=== PATIENT | male | born 1955 | race Caucasian/White ===

== ENCOUNTER → 2017-06-13 | Outpatient (CLI) | payer BC ==
[~2017-06-13] MED LIST: AMO500 PO; ASPI325T PO; ASPI81TA63; ATIV0.5T; AVAP150T PO; BACT800T OR; CARBAMAZEPINE PO; CARV3.12 OR; FLON0.05; KEFL500C OR; MULTIVIT PO; NEUR300C; NITR0.4S SL; NOVOLOG INSULIN; NOVOLOG100 MG/ML; PENICILLIN V PO; PLAV75TA2 PO; SIMV40TA2 PO; SLOWTAB OR; TORS20TA2 PO; ZEST20TA; ZEST20TA4; [UNRECOGNIZED DRUG - OTHER] TOP; cq10 PO
[2017-06-13 09:27] LABS: ALBUMIN 3.4 GM/DL (3.2-5.2); ALBUMIN/GLOBULIN RATIO 1.31 (1.00-1.93); BILIRUBIN,DIRECT 0.1 MG/DL (0.0-0.2); BILIRUBIN,TOTAL 0.4 MG/DL (0.2-1.0); CALCIUM LEVEL 7.8 MG/DL (8.8-10.2); CREATININE FOR GFR 1.39 MG/DL (0.70-1.30); GLOMERULAR FILTRATION RATE 55.5 (>49); POTASSIUM SERUM 4.3 MEQ/L (3.5-5.1)
== END ==
LOC: M WUC 08:23
PROVIDERS: ATTEND Internal Medicine Cardiovascular Disease
DX: E78.00 Pure hypercholesterolemia, unspecified (principal)

== ENCOUNTER 2018-03-22 09:31 | Emergency (ER) | payer BC | END 2018-03-22 10:41 | disposition home or self-care (01) | LOC: M ED 09:31 | DX: M79.671 Pain in right foot (principal); E11.40 Type 2 diabetes mellitus with diabetic neuropathy, unspecified; R56.9 Unspecified convulsions; I50.9 Heart failure, unspecified; I25.10 Atherosclerotic heart disease of native coronary artery without angina pectoris; I25.2 Old myocardial infarction; E78.00 Pure hypercholesterolemia, unspecified; R03.0 Elevated blood-pressure reading, without diagnosis of hypertension; R07.9 Chest pain, unspecified; G47.30 Sleep apnea, unspecified; Z87.01 Personal history of pneumonia (recurrent); H40.9 Unspecified glaucoma; Z87.19 Personal history of other diseases of the digestive system; Z87.442 Personal history of urinary calculi; F41.9 Anxiety disorder, unspecified; Z95.5 Presence of coronary angioplasty implant and graft; Z79.82 Long term (current) use of aspirin; Z79.4 Long term (current) use of insulin; Z79.899 Other long term (current) drug therapy; Z88.5 Allergy status to narcotic agent | CPT/HCPCS: 73630 ==

== ENCOUNTER → 2018-04-18 | Day surgery (SDC) | payer BC ==
[~2018-04-18] MED LIST changes: -AMO500 PO; -ASPI325T PO; -ASPI81TA63; -ATIV0.5T; -AVAP150T PO; -BACT800T OR; -CARBAMAZEPINE PO; -CARV3.12 OR; -FLON0.05; -KEFL500C OR; +LIDOCAINE 2% INJ 100 MG/5 ML SDV (FOR ANES.) As Ordered; -MULTIVIT PO; -NEUR300C; -NITR0.4S SL; -NOVOLOG INSULIN; -NOVOLOG100 MG/ML; -PENICILLIN V PO; -PLAV75TA2 PO; +PROPOFOL 200 MG/20 ML VIAL As Ordered; -SIMV40TA2 PO; -SLOWTAB OR; -TORS20TA2 PO; -ZEST20TA; -ZEST20TA4; -[UNRECOGNIZED DRUG - OTHER] TOP; -cq10 PO
[2018-04-18] MEDS: NS 1,000 ML IV (08:30)
[2018-04-18 09:06] LABS: BEDSIDE GLUCOSE 185 MG/DL (80-115)
== END | disposition home or self-care (01) ==
LOC: M OPP 08:14
DX: Z12.11 Encounter for screening for malignant neoplasm of colon (principal); Z86.010 Personal history of colon polyps; K64.0 First degree hemorrhoids; D12.3 Benign neoplasm of transverse colon; I11.9 Hypertensive heart disease without heart failure; E78.00 Pure hypercholesterolemia, unspecified; E10.9 Type 1 diabetes mellitus without complications; G47.30 Sleep apnea, unspecified; R23.3 Spontaneous ecchymoses; M19.011 Primary osteoarthritis, right shoulder; M19.012 Primary osteoarthritis, left shoulder; I25.2 Old myocardial infarction; Z79.4 Long term (current) use of insulin; Z79.82 Long term (current) use of aspirin; Z79.899 Other long term (current) drug therapy; Z79.01 Long term (current) use of anticoagulants; Z87.898 Personal history of other specified conditions; Z95.5 Presence of coronary angioplasty implant and graft; Z83.3 Family history of diabetes mellitus
CPT/HCPCS: 45385

== ENCOUNTER → 2018-11-18 | Outpatient (CLI) | payer BC ==
[~2018-11-18] MED LIST changes: +AMO500 PO; +ASPI1TAB PO; +ASPI325T PO; +ASPI81TA63; +ATIV0.5T; +ATIV1TAB10 PO; +ATOR80TA59 PO; +AVAP150T PO; +BACT800T OR; +CARB200T98 PO; +CARBAMAZEPINE PO; +CARV12.5 PO; +CARV3.12 OR; +CLOP75TA2 PO; +FLON0.05; +INSUHUMDS; +ISOS30TA4 PO; +KEFL500C OR; -LIDOCAINE 2% INJ 100 MG/5 ML SDV (FOR ANES.) As Ordered; +MULTIVIT PO; +NEUR300C; +NITR0.4S SL; +NOVOLOG INSULIN; +NOVOLOG100 MG/ML; +PENICILLIN V PO; +PLAV75TA2 PO; -PROPOFOL 200 MG/20 ML VIAL As Ordered; +SIMV40TA2 PO; +SLOWTAB OR; +TORS10TA3 PO; +TORS20TA2 PO; +ZEST20TA; +ZEST20TA4; +[UNRECOGNIZED DRUG - OTHER] TOP; +cq10 PO; +humalog insulin pump
[2018-11-18 10:23] LABS: ALBUMIN 3.2 GM/DL (3.2-5.2); ALT/SGPT 41 U/L (12-78); BILIRUBIN,TOTAL 0.2 MG/DL (0.2-1.0); BLOOD UREA NITROGEN 35 MG/DL (7-18); CARBON DIOXIDE LEVEL 29 MEQ/L (21-32); CHLORIDE LEVEL 110 MEQ/L (98-107); CHOLESTEROL LEVEL 174 MG/DL (<200); CHOLESTEROL RISK RATIO 3.163 (<5); CREATININE FOR GFR 1.16 MG/DL (0.70-1.30); GLOMERULAR FILTRATION RATE > 60.0 (>49); GLUCOSE, FASTING 145 MG/DL (70-100); HDL CHOLESTEROL 55 MG/DL (>40); LDL CHOLESTEROL 100 MG/DL (<100); NON-HDL-C 119 MG/DL; POTASSIUM SERUM 4.8 MEQ/L (3.5-5.1); SODIUM LEVEL 145 MEQ/L (136-145); TOTAL PROTEIN 6.3 GM/DL (6.4-8.2); TRIGLYCERIDES LEVEL 96 MG/DL (<150)
== END ==
LOC: M LAB 09:12
PROVIDERS: ATTEND Physician Assistant
DX: E78.00 Pure hypercholesterolemia, unspecified (principal)

== ENCOUNTER → 2018-11-20 | Outpatient (CLI) | payer BC ==
--- NOTE | 2018-11-20 11:14 | REP ---
MR BRAIN WITHOUT CONTRAST: HISTORY: Left nerve palsy. Several punctate areas of increased signal intensity on T2-weighted images are present in the periventricular and subcortical white matte . This represents small vessel ischemic disease. There is no intraparenchymal hemorrhage, infarct or midline shift. A small lipoma is present along the anterior, superior and posteroinferior corpus callosum. The lipoma measures 6 mm in width. The ventricular system is normal in appearance. There is no extracerebral collection. There sinuses are clear. IMPRESSION: 1. Minimal small vessel ischemic disease. 2. Small corpus callosum lipoma. Electronically Signed by Jose Segovia MD 11/20/2018 11:30 A
--- NOTE | 2018-11-20 11:16 | REP ---
MR ORBITS WITHOUT CONTRAST: HISTORY: Left nerve palsy. The globes, optic nerves and rectus muscles are normal in appearance. There is no orbital lesion. The cavernous sinuses, optic chiasm and hypothalamus are normal in appearance. A lipoma is present along the anterior and superior surface of the corpus callosum. The visualized sinuses are clear. IMPRESSION: There is no orbital lesion. Electronically Signed by Jose Segovia MD 11/20/2018 11:31 A
== END ==
LOC: M RAD 08:53
PROVIDERS: ATTEND Ophthalmology
DX: G58.8 Other specified mononeuropathies (principal); R90.82 White matter disease, unspecified

== ENCOUNTER 2019-01-19 08:54 | Emergency (ER) | payer BC ==
[~2019-01-19] VITALS: Ht 167.6 cm; Wt 81.8 kg
[2019-01-19 09:28] LABS: BASO # 0.1 10^3/uL (0.0-0.2); BASO % 0.6 % (0.0-1.0); EOS # 0.1 10^3/uL (0.0-0.50); EOS % 1.6 % (0.0-3.0); HEMATOCRIT 40.6 % (42.0-52.0); HEMOGLOBIN 13.7 g/dl (13.5-17.5); LYMPH # 1.5 10^3/uL (1.5-4.5); LYMPH % 16.3 % (24.0-44.0); MEAN CORPUSCULAR HEMOGLOBIN 29.6 pg (27.0-33.0); MEAN CORPUSCULAR HGB CONC 33.7 g/dl (32.0-36.5); MEAN CORPUSCULAR VOLUME 87.7 fl (80.0-96.0); MONO # 0.5 10^3/uL (0.0-0.8); MONO % 5.9 % (0.0-5.0); NEUTROPHILS # 6.7 10^3/uL (1.8-7.7); NEUTROPHILS % 75.1 % (36.0-66.0); PLATELET COUNT, AUTOMATED 201 10^3/uL (150-450); RED BLOOD COUNT 4.63 10^6/uL (4.30-6.10); WHITE BLOOD COUNT 8.9 10^3/uL (4.0-10.0)
--- NOTE | 2019-01-19 09:50 | REP ---
CT Head without contrast HISTORY: Syncope COMPARISON: 09/07/2008 There is no intraparenchymal hemorrhage, acute infarct, or midline shift. A small partially calcified lipoma is present anterior and superior to the corpus callosum. The ventricular system is normal in appearance. There is no extra cerebral collection. There is no fracture. The visualized sinuses are clear. IMPRESSION: 1. There is no acute intracranial lesion. 2. Small corpus callosal lipoma. Electronically Signed by Jose Segovia MD 01/19/2019 09:41 A
--- NOTE | 2019-01-19 10:01 | REP ---
AP PORTABLE CHEST: 01/19/2019. Comparison: 05/07/2015. Clinical history: Chest pain. Findings: Lungs are adequately inflated. Heart size exaggerated by AP portable technique and lordotic projection. No gross cardiomegaly or edema. No effusion or infiltrate. Aorta and airway intact. No widening the mediastinum. There is no pulmonary edema. Impression: 1. Negative AP portable chest. Heart size exaggerated by AP portable lordotic technique without definite cardiomegaly, vascular redistribution, edema, effusion or infiltrate. Electronically Signed by Mono Terrell MD 01/19/2019 06:30 P
[2019-01-19 10:26] LABS: BLOOD UREA NITROGEN 23 MG/DL (7-18); CALCIUM LEVEL 8.9 MG/DL (8.8-10.2); CARBAMAZEPINE (TEGRETOL) LEVEL 3.7 UG/ML (4.0-10.0); CARBON DIOXIDE LEVEL 27 MEQ/L (21-32); CHLORIDE LEVEL 102 MEQ/L (98-107); CPK CREATINE PHOSPHOKINASE 117 U/L (39-308); CREATININE FOR GFR 1.45 MG/DL (0.70-1.30); GLOMERULAR FILTRATION RATE 52.5 (>49); GLUCOSE, FASTING 375 MG/DL (70-100); MB/CK RELATIVE INDEX 3.08 (< OR =4); POTASSIUM SERUM 5.7 MEQ/L (3.5-5.1); SODIUM LEVEL 135 MEQ/L (136-145); TROPONIN I < 0.02 NG/ML (< 0.10)
[2019-01-19 12:35] LABS: CPK CREATINE PHOSPHOKINASE 91 U/L (39-308); TROPONIN I < 0.02 NG/ML (< 0.10)
[2019-01-19 15:06] LABS: CPK CREATINE PHOSPHOKINASE 81 U/L (39-308); MB/CK RELATIVE INDEX 3.09 (< OR =4); TROPONIN I < 0.02 NG/ML (< 0.10)
[2019-01-19 15:15] VITALS: BP 166/76
--- NOTE | 2019-01-19 20:34 | ECGEPIP ---
Stationary ECG Study [facility] - ED Test Date: 2019-01-19 Pat Name: EVGENY BILLINGS Department: Room: - Gender: M Inpatient Pharmacist: sourav : 1955 Requested By: Sammy Padilla Order Number: [id number] Reading MD: Sammy Norman Measurements Intervals [place] Rate: 69 P: 42 [place]: 153 QRS: 15 QRSD: 109 T: 14 QT: 361 QTc: 387 Interpretive Statements SINUS RHYTHM INCOMPLETE RIGHT BUNDLE BRANCH BLOCK INFERIOR MYOCARDIAL INFARCTION, PROBABLY OLD SIMILAR TO 04/13/12 Electronically Signed On 01-19-2019 20:34:00 EDT by Sammy Norman
--- NOTE | 2019-01-19 20:42 | ECGEPIP ---
Stationary ECG Study [facility] - ED Test Date: 2019-01-19 Pat Name: EVGENY BILLINGS Department: Room: - Gender: M Uke Driver: sourav : 1955 Requested By: Sammy Padilla Order Number: [id number] Reading MD: Sammy Norman Measurements Intervals [place] Rate: 65 P: 57 [place]: 145 QRS: 8 QRSD: 114 T: 4 QT: 370 QTc: 386 Interpretive Statements SINUS RHYTHM INCOMPLETE RIGHT BUNDLE BRANCH BLOCK INFERIOR MYOCARDIAL INFARCTION, PROBABLY OLD SIMILAR TO PRIOR ON SAME DATE Electronically Signed On 01-19-2019 20:42:01 EDT by Sammy Norman
--- NOTE | 2019-01-19 20:51 | ECGEPIP ---
Stationary ECG Study [facility] - ED Test Date: 2019-01-19 Pat Name: EVGENY BILLINGS Department: Room: - Gender: M Tomographic Tech: sb : 1955 Requested By: Sammy Padilla Order Number: [id number] Reading MD: Sammy Norman Measurements Intervals [place] Rate: 69 P: 52 [place]: 139 QRS: 1 QRSD: 118 T: 0 QT: 360 QTc: 387 Interpretive Statements SINUS RHYTHM POSSIBLE LEFT ATRIAL ENLARGEMENT INCOMPLETE RIGHT BUNDLE BRANCH BLOCK INFERIOR MYOCARDIAL INFARCTION, PROBABLY OLD SIMILAR TO PRIOR ON SAME DATE Electronically Signed On 01-19-2019 20:51:39 EDT by Sammy Norman
== END 2019-01-19 16:04 | disposition home or self-care (01) ==
LOC: M ED 08:54
DX: R55 Syncope and collapse (principal); I12.9 Hypertensive chronic kidney disease with stage 1 through stage 4 chronic kidney disease, or unspecified chronic kidney disease; N18.3 Chronic kidney disease, stage 3 (moderate); E10.9 Type 1 diabetes mellitus without complications; I45.19 Other right bundle-branch block; I25.10 Atherosclerotic heart disease of native coronary artery without angina pectoris; E78.5 Hyperlipidemia, unspecified; F41.9 Anxiety disorder, unspecified; I25.2 Old myocardial infarction; Z95.5 Presence of coronary angioplasty implant and graft; Z79.899 Other long term (current) drug therapy; Z79.82 Long term (current) use of aspirin; Z88.5 Allergy status to narcotic agent

== ENCOUNTER → 2019-02-01 | Outpatient (CLI) | payer BC ==
[~2019-02-01] MED LIST changes: -ASPI1TAB PO; +ASPI81TA26 PO
[2019-02-01 09:55] LABS: ALBUMIN 3.2 GM/DL (3.2-5.2); BLOOD UREA NITROGEN 18 MG/DL (7-18); CALCIUM LEVEL 9.3 MG/DL (8.8-10.2); CARBON DIOXIDE LEVEL 28 MEQ/L (21-32); CHLORIDE LEVEL 108 MEQ/L (98-107); CREATININE FOR GFR 1.13 MG/DL (0.70-1.30); GLOMERULAR FILTRATION RATE > 60.0 (>49); GLUCOSE, FASTING 161 MG/DL (70-100); PHOSPHORUS LEVEL 3.6 MG/DL (2.5-4.9); POTASSIUM SERUM 5.1 MEQ/L (3.5-5.1); SODIUM LEVEL 141 MEQ/L (136-145)
== END ==
LOC: M LAB 08:16
PROVIDERS: ATTEND Internal Medicine Cardiovascular Disease
DX: I11.0 Hypertensive heart disease with heart failure (principal); I50.32 Chronic diastolic (congestive) heart failure

== ENCOUNTER → 2019-06-04 | Outpatient (CLI) | payer BC ==
[2019-06-04 13:43] LABS: HEMOGLOBIN A1c 9.5 %
[2019-06-04 13:56] LABS: CHOLESTEROL RISK RATIO 2.466 (<5)
== END ==
LOC: M WUC 10:41
PROVIDERS: ATTEND Internal Medicine Cardiovascular Disease
DX: E78.00 Pure hypercholesterolemia, unspecified (principal); I11.0 Hypertensive heart disease with heart failure; E10.22 Type 1 diabetes mellitus with diabetic chronic kidney disease

== ENCOUNTER → 2019-09-06 | Outpatient (CLI) | payer OTHER ==
[2019-09-06 11:24] LABS: HEMATOCRIT 42.5 % (42.0-52.0); HEMOGLOBIN 13.9 g/dl (13.5-17.5); MEAN CORPUSCULAR HEMOGLOBIN 29.8 pg (27.0-33.0); MEAN CORPUSCULAR HGB CONC 32.7 g/dl (32.0-36.5); MEAN CORPUSCULAR VOLUME 91.2 fl (80.0-96.0); PLATELET COUNT, AUTOMATED 221 10^3/uL (150-450); RED BLOOD COUNT 4.66 10^6/uL (4.30-6.10); WHITE BLOOD COUNT 7.4 10^3/uL (4.0-10.0)
[2019-09-06 12:01] LABS: CREATININE, URINE 19.1 MG/DL; MAU/CREAT RATIO 628.2 MCG/MG (0.0-30.0)
[2019-09-06 12:14] LABS: ALBUMIN 3.6 GM/DL (3.2-5.2); ALT/SGPT 40 U/L (12-78); BILIRUBIN,TOTAL 0.3 MG/DL (0.2-1.0); BLOOD UREA NITROGEN 41 MG/DL (7-18); CALCIUM LEVEL 9.6 MG/DL (8.8-10.2); CARBAMAZEPINE (TEGRETOL) LEVEL 3.5 UG/ML (4.0-10.0); CARBON DIOXIDE LEVEL 29 MEQ/L (21-32); CHLORIDE LEVEL 109 MEQ/L (98-107); CHOLESTEROL LEVEL 169 MG/DL (<200); GLOMERULAR FILTRATION RATE > 60.0 (>49); GLUCOSE, FASTING 167 MG/DL (70-100); HDL CHOLESTEROL 66 MG/DL (>40); LDL CHOLESTEROL 91 MG/DL (<100); NON-HDL-C 103 MG/DL; POTASSIUM SERUM 4.8 MEQ/L (3.5-5.1); SODIUM LEVEL 142 MEQ/L (136-145); TRIGLYCERIDES LEVEL 58 MG/DL (<150)
[2019-09-06 12:53] LABS: HEMOGLOBIN A1c 8.8 %
== END ==
LOC: M WUC 08:10
PROVIDERS: ATTEND Internal Medicine
DX: E10.8 Type 1 diabetes mellitus with unspecified complications (principal)

== ENCOUNTER 2020-08-07 02:22 | Inpatient (IN) | payer BC ==
[2020-08-07] VITALS (9 sets, daily range): BP systolic 133–188; BP diastolic 65–77
[~2020-08-07] VITALS: Ht 167.6 cm; Wt 84.0 kg
[2020-08-07] MEDS ORDERED: NS 500 ML IV ONE (02:30)
--- NOTE | 2020-08-07 02:48 | REPVR ---
PROCEDURE INFORMATION: Exam: CT Cervical Spine Without Contrast Exam date and time: 08/07/2020 2:33 AM Age: 65 years old Clinical indication: Neck pain; Additional info: Fall TECHNIQUE: Imaging protocol: Computed tomography images of the cervical spine without contrast. Radiation optimization: All CT scans at this facility use at least one of these dose optimization techniques: automated exposure control; mA and/or kV adjustment per patient size (includes targeted exams where dose is matched to clinical indication); or iterative reconstruction. COMPARISON: No relevant prior studies available. FINDINGS: Vertebrae: Nonspecific straightening. Vertebral body height and AP alignment is preserved. Uare-lu-npoqmyoi degenerative change about the dens. There are bilateral facet joint degenerative changes. No acute cervical spine fracture. Discs/Spinal canal/Neural foramina: Central canal stenosis greatest at C3-C4, likely mild to moderate.. Soft tissues: Unremarkable. Lungs: Lung apices are normal. Pleural space: No visible pneumothorax. Vasculature: Vascular calcification. IMPRESSION: No acute cervical spine fracture. Electronically signed by: Dewey Tristan On 08/07/2020 02:48:48 AM
--- NOTE | 2020-08-07 02:52 | REPVR ---
PROCEDURE INFORMATION: Exam: CT Head Without Contrast Exam date and time: 08/07/2020 2:27 AM Age: 65 years old Clinical indication: Injury or trauma; Fall; Concussion / head injury; Consciousness not specified; Additional info: Altered mental status TECHNIQUE: Imaging protocol: Computed tomography of the head without contrast. Radiation optimization: All CT scans at this facility use at least one of these dose optimization techniques: automated exposure control; mA and/or kV adjustment per patient size (includes targeted exams where dose is matched to clinical indication); or iterative reconstruction. COMPARISON: CT Head without contrast 01/19/2019 9:15 AM FINDINGS: Brain: No acute intracranial hemorrhage, midline shift or mass effect. Stable lipoma of the corpus callosum. Cerebral ventricles: No hydrocephalus. Bones/joints: Unremarkable. No acute fracture. Paranasal sinuses: Visualized sinuses are unremarkable. No fluid levels. Mastoid air cells: Mild partial opacification of the bilateral mastoid air cells. Soft tissues: Unremarkable. IMPRESSION: No acute intracranial abnormality. Electronically signed by: Dewey Tristan On 08/07/2020 02:52:14 AM
[2020-08-07 03:13] LABS: BASO # 0.1 10^3/uL (0.0-0.2); BASO % 0.5 % (0.0-1.0); EOS # 0.2 10^3/uL (0.0-0.5); EOS % 2.1 % (0.0-3.0); HEMATOCRIT 38.2 % (42.0-52.0); HEMOGLOBIN 12.5 g/dl (13.5-17.5); LYMPH # 2.3 10^3/uL (1.5-5.0); LYMPH % 22.9 % (24.0-44.0); MEAN CORPUSCULAR HEMOGLOBIN 29.3 pg (27.0-33.0); MEAN CORPUSCULAR HGB CONC 32.7 g/dl (32.0-36.5); MEAN CORPUSCULAR VOLUME 89.7 fl (80.0-96.0); MONO # 0.8 10^3/uL (0.0-0.8); MONO % 7.5 % (0.0-5.0); NEUTROPHILS # 6.8 10^3/uL (1.5-8.5); NEUTROPHILS % 66.2 % (36.0-66.0); PLATELET COUNT, AUTOMATED 211 10^3/uL (150-450); RED BLOOD COUNT 4.26 10^6/uL (4.30-6.10); WHITE BLOOD COUNT 10.2 10^3/uL (4.0-10.0)
[2020-08-07] MEDS ORDERED: DEXTROSE 50% 50 ML SYRINGE As Ordered ONE (03:33)
[2020-08-07] MEDS ORDERED: DEXTROSE 50% 50 ML SYRINGE IV STA (03:33)
--- NOTE | 2020-08-07 03:42 | REPVR ---
PROCEDURE INFORMATION: Exam: XR Chest, 1 View Exam date and time: 08/07/2020 2:50 AM Age: 65 years old Clinical indication: Chest pain; Additional info: Altered mental status TECHNIQUE: Imaging protocol: XR of the chest Views: 1 view. COMPARISON: No relevant prior studies available. FINDINGS: Lungs: There are low lung volumes. No consolidation. Pleural space: Unremarkable. No pleural effusion. No pneumothorax. Heart/Mediastinum: Cardiac silhouette is magnified by technique. Bones/joints: There are degenerative changes involving the spine. IMPRESSION: Low lung volumes without definite acute process. Electronically signed by: Dewey Tristan On 08/07/2020 03:41:37 AM
[2020-08-07] MEDS ORDERED: D5W 1,000 ML IV ONE (03:45)
[2020-08-07] MEDS ORDERED: D5W/0.45% SODIUM CHLORIDE 1,000 ML IV ONE (03:45)
[2020-08-07 03:48] LABS: ACETAMINOPHEN LEVEL < 2.0 UG/ML (10.0-30.0); ALBUMIN 3.6 GM/DL (3.2-5.2); ALT/SGPT 42 U/L (12-78); BILIRUBIN,DIRECT 0.1 MG/DL (0.0-0.2); BILIRUBIN,TOTAL 0.3 MG/DL (0.2-1.0); ETHYL ALCOHOL (ETHANOL) < 0.003 % (0.000-0.010); NT-PRO BNP 58 PG/ML (<125); SALICYLATE LEVEL < 1.7 MG/DL (5.0-30.0); TOTAL PROTEIN 7.1 GM/DL (6.4-8.2)
[2020-08-07] MEDS ORDERED: D5W/0.9% SODIUM CHLORIDE 1,000 ML IV SCH (04:00)
[2020-08-07 04:08] LABS: AMPHETAMINES LEVEL URINE NEGATIVE (NEGATIVE); BARBITURATES URINE NEGATIVE (NEGATIVE); BENZODIAZEPINES URINE NEGATIVE (NEGATIVE); CANNABINOIDS URINE NEGATIVE (NEGATIVE); COCAINE METABOLITE URINE NEGATIVE (NEGATIVE); METHADONE URINE NEGATIVE (NEGATIVE); OPIATES URINE NEGATIVE (NEGATIVE); PHENCYCLIDINE URINE NEGATIVE (NEGATIVE)
[2020-08-07] MEDS ORDERED: ACETAMINOPHEN TAB 650MG DOSE (2X325MG) PO PRN (04:45)
[2020-08-07] MEDS ORDERED: IRBE150T7 PO (04:52)
[2020-08-07] MEDS ORDERED: ASPI-525 PO (04:52)
[2020-08-07] MEDS ORDERED: TORS10TA3 PO (04:52)
[2020-08-07] MEDS ORDERED: ATOR40TA75 PO (04:52)
[2020-08-07] MEDS ORDERED: LORA1TAB4 PO (04:52)
[2020-08-07] MEDS ORDERED: TORS20TA2 PO (04:52)
[2020-08-07] MEDS ORDERED: CARV6.25 PO (04:52)
[2020-08-07] MEDS ORDERED: DORZ2SOL5 OU (04:52)
[2020-08-07] MEDS ORDERED: INSUHUMDS SC (04:52)
[2020-08-07] MEDS ORDERED: VITMTA PO (04:52)
[2020-08-07] MEDS ORDERED: NITR4TASL SL (04:52)
[2020-08-07] MEDS ORDERED: GLUCAGON INJ 1MG VIAL SC PRN (05:15)
[2020-08-07] MEDS ORDERED: DEXTROSE 50% 50 ML SYRINGE IV PRN (05:15)
[2020-08-07] MEDS ORDERED: LORazepam 1 MG TAB PO PRN (05:15)
[2020-08-07] MEDS ORDERED: GLUCOSE 4GM CHEW TABLET PO PRN (05:15)
--- NOTE | 2020-08-07 05:38 | HPEPDOC ---
[facility] Medical History & Physical Date of Admission Aug 07, 2020 Date of Service: Aug 07, 2020 Attending Physician: ACE BRAVO MD History and Physical CHIEF COMPLAINT: Found down HISTORY OF PRESENT ILLNESS: Aman Corrales is a 65 YO M with DM1, CAD s/p several stents and diastolic CHF who presented to the ED after being found down at home by his . EMS was activated and reports giving glucagon and D10 on arrival for hypoglycemia. According to ED staff, the patient was confused upon arrival to the ED but is fully oriented at the time of my interview. The patient reports that he remembers eating some candy corn around 9pm and then adjusting his basal dose of insulin. He states that he has recently been adjusting his insulin dosing with his PCP, Juancarlos Ford. He has been having elevated blood sugars over the past few days and states he has been self-adjusting his insulin pump and increasing his insulin sliding scale. Upon speaking to ED staff and corroborating story with the patient's , there is some concern about suicide attempt as the patient has recently had depressed moods. The patient denies any recent illness. No fevers, chills, n/v/d or shortness of breath. PAST MEDICAL HISTORY: 1. CAD s/p seven stents, most recent in 2011 (follows with Dr. Bryan) 2. Hx of inferior wall [place] 3. Chronic diastolic CHF, ischemic 4. T1DM, on insulin pump 5. HTN 6. Seasonal allergic rhinitis 7. HLD 8. ROCIO on CPAP 9. Depression/Anxiety PAST SURGICAL HISTORY: 1. Multiple PCI's and stent placement 2. Shoulder surgery 3. 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 Denies alcohol or illicit drugs FAMILY HISTORY: History of heart disease, HTN, obesity ALLERGIES: Please see below. REVIEW OF SYSTEMS: Constitutional: No Weight Change, No Fever, No Chills, No Night Sweats, No Fatigue, No Malaise ENT/Mouth: No Hearing Changes, No Ear Pain, No Nasal Congestion, No Sinus Pain, No Hoarseness, No sore throat, No Rhinorrhea, No Swallowing Difficulty Eyes: No Eye Pain, No Swelling, No Redness, No Foreign Body, No Discharge, No Vision Changes Cardiovascular: No Chest Pain, No SOB, No PND, No Dyspnea on Exertion, No Orthopnea, No Claudication, No Edema, No Palpitations Respiratory: No Cough, No Wheezing, No Smoke Exposure, No Dyspnea Gastrointestinal: No Nausea, No Vomiting, No Diarrhea, No Constipation, No Pain, No Heartburn, No Anorexia, No Dysphagia, No Hematochezia, No Melena Genitourinary: No Dysmenorrhea, No DUB, No Dyspareunia, No Dysuria Musculoskeletal: No Arthralgias, No Myalgias, No Joint Swelling, No Joint Stiffness, No Back Pain, No Neck Pain, No Injury History Skin: No Skin Lesions, No Pruritis, No Hair Changes, No Breast/Skin Changes, No Nipple Discharge Neuro: No Weakness, No Numbness, No Paresthesias, No Loss of Consciousness, No Syncope, No Dizziness, No Headache, No Coordination Changes, No Recent Falls Psych: No Anxiety/Panic, No Depression, No Insomnia, No Personality Changes, No Delusions Heme/Lymph: No Bruising, No Bleeding, No Transfusions History, No Lymphadenopathy Endocrine: No Polyuria, No Polydipsia, No Temperature Intolerance HOME MEDICATIONS: Please see below. VITAL SIGNS: see below GENERAL: alert and oriented, in no apparent distress, pleasant and conversant in full sentences. HEENT: PERRL, EOMI, Oral mucous membranes are moist without lesions. NECK: The patient has no noted JVD. No adenopathy is appreciated. No thyromegaly CHEST/LUNGS: Lungs are clear bilaterally without rhonchi, rales, or wheezes. There is no subcutaneous air appreciated. There is no tenderness to the chest wall. HEART: Regular rate and rhythm. 2/6 BRITTON heard best in RUSB. Distal pulses are 2+. No carotid bruits appreciated. ABDOMEN: Soft, nontender, and nondistended. Bowel sounds are positive. No organomegaly is appreciated. No masses are appreciated. There are no peritoneal signs. There is no [place] sign. EXTREMITIES: No peripheral edema. There is no focal long bone tenderness or deformity. SKIN: The patients skin is warm and dry, without rashes or lesions. PSYCHIATRIC: AAO x 3, normal mood/affect NEUROLOGIC: The patient has 5/5 strength to the upper and lower extremities bilaterally. Sensation is intact throughout. Deep tendon reflexes are 2+ in all four extremities. There are no deficits to the cranial nerves. LABORATORY DATA: See below. IMAGING: CT HEAD: FINDINGS: Brain: No acute intracranial hemorrhage, midline shift or mass effect. Stable lipoma of the corpus callosum. Cerebral ventricles: No hydrocephalus. Bones/joints: Unremarkable. No acute fracture. Paranasal sinuses: Visualized sinuses are unremarkable. No fluid levels. Mastoid air cells: Mild partial opacification of the bilateral mastoid air cells. Soft tissues: Unremarkable. IMPRESSION: No acute intracranial abnormality CXR: FINDINGS: Lungs: There are low lung volumes. No consolidation. Pleural space: Unremarkable. No pleural effusion. No pneumothorax. Heart/Mediastinum: Cardiac silhouette is magnified by technique. Bones/joints: There are degenerative changes involving the spine. IMPRESSION: Low lung volumes without definite acute process. CT Spine, Cervical: FINDINGS: Vertebrae: Nonspecific straightening. Vertebral body height and AP alignment is preserved. [id number]-vr-[id number] degenerative change about the dens. There are bilateral facet joint degenerative changes. No acute cervical spine fracture. Discs/Spinal canal/Neural foramina: Central canal stenosis greatest at C3-C4, likely mild to moderate.. Soft tissues: Unremarkable. Lungs: Lung apices are normal. Pleural space: No visible pneumothorax. Vasculature: Vascular calcification. IMPRESSION: No acute cervical spine fracture. MICROBIOLOGY: Please see below. ASSESSMENT: This is a 65 YO M with CAD s/p multiple MIs and stents, dCHF who presents after being found down at home found to have hypoglycemic encephalopathy likely 2/2 insulin overdose. PLAN: 1. Hypoglycemic encephalopathy: -Per the patient, he has recently been adjusting insulin dose with PCP. He thinks he took too much insulin earlier this evening. There is concern for suicide attempt. -Recommend psychiatric consult in AM -FSBS Q2H -SSI with hypoglycemic protocol -D5/NS IVF 40cc/hr -CT head negative for any abnormality -Patient will likely need higher level of T1DM care in outpatient setting 2. Severe hypothermia: Temperature found to be 91.0 on arrival -Warming blanket applied, warmed IV fluids -Continue urinary catheter temperature monitoring -Continuous telemetry 3. Leukocytosis: -Blood cultures pending -CXR negative for PNA 4. History of dCHF: patient sees Dr. Bryan and is scheduled for echo in office next week -Appears euvolemic on exam -Continue home Torsemide -Strict I/O, fluid restriction 2,000cc/day -Echo ordered. 5. History of CAD s/p multiple MIs and stents: -Troponins negative -EKG: sinus bradycardia rate of 53, unchanged from prior -Continue Coreg, Isosorbide, Plavix, ASA 6. HLD: -Continue home Atorvastatin DVT ppx: SQH Diet: consistent carbohydrate Vital Signs Vital Signs Date Time Temp Pulse Resp B/P (MAP) Pulse Ox O2 Delivery O2 Flow Rate FiO2 08/07/20 04:00 54 166/78 (107) 100 08/07/20 03:41 91.0 08/07/20 02:26 20 Nasal Cannula 2.0 Laboratory Data Labs 24H Laboratory Tests 2 08/07/20 02:28: Bedside Glucose (Misc Panel) 177H 08/07/20 02:58: Immature Granulocyte % (Auto) 0.8, Neutrophils (%) (Auto) 66.2H, Lymphocytes (%) (Auto) 22.9L, Monocytes (%) (Auto) 7.5H, Eosinophils (%) (Auto) 2.1, Basophils (%) (Auto) 0.5, Neutrophils # (Auto) 6.8, Lymphocytes # (Auto) 2.3, Monocytes # (Auto) 0.8, Eosinophils # (Auto) 0.2, Basophils # (Auto) 0.1, Nucleated Red Blood Cells % (auto) 0.0, Lactic Acid Level 1.1, Total Bilirubin 0.3, Direct Bilirubin 0.1, Aspartate Amino Transf (AST/SGOT) 25, Alanine Aminotransferase (ALT/SGPT) 42, Alkaline Phosphatase 135H, JH-Iam-P-Type Natriuretic Peptide 58, Total Protein 7.1, Albumin 3.6, Albumin/Globulin Ratio 1.0, Thyroid Stimulating Hormone (TSH) 2.260, Salicylates Level < 1.7L, Urine Opiates Screen NEGATIVE, Urine Methadone Screen NEGATIVE, Acetaminophen Level < 2.0L, Urine Barbiturates Screen NEGATIVE, Urine Phencyclidine Screen NEGATIVE, Urine Amphetamines Screen NEGATIVE, Urine Benzodiazepines Screen NEGATIVE, Urine Cocaine Metabolite Screen NEGATIVE, Urine Cannabinoids Screen NEGATIVE, Ethyl Alcohol Level < 0.003 08/07/20 03:01: POC Glucose (Misc Panel) 173H, POC Sodium (Misc Panel) 142, POC Potassium (Misc Panel) 3.9, POC Chloride (Misc Panel) 106, POC Total CO2 (Misc Panel) 22.0L, POC Blood Urea Nitrogen (Misc Panel 32H, POC Ionized Calcium (Misc Panel) 5.6H, POC Creatinine (Misc Panel) 1.1, POC Hematocrit (Misc Panel) 41.0 08/07/20 03:03: POC Troponin I (Misc) 0.01 08/07/20 03:32: Bedside Glucose (Misc Panel) 79L 08/07/20 03:59: Bedside Glucose (Misc Panel) 154H CBC/BMP Laboratory Tests 08/07/20 02:58 Home Medications Scheduled Aspirin (Aspirin EC) 325 Mg Tablet.dr, 325 MG PO DAILY Atorvastatin Calcium (Atorvastatin Calcium) 40 Mg Tablet, 60 MG PO QHS Carvedilol (Carvedilol) 6.25 Mg Tablet, 6.25 MG PO BID Clopidogrel Bisulfate (Clopidogrel) 75 Mg Tab, 75 MG PO DAILY Dorzolamide HCl/Timolol Maleat (Dorzolamide-Timolol Eye Drops) 10 Ml Drops, 1 DROP OU BID Insulin Human Lispro (Humalog) 100 Unit/1 Ml Vial, 1 DOSE SC ASDIRECTED VIA INSULIN PUMP Irbesartan (Irbesartan) 150 Mg Tablet, 150 MG PO BID Isosorbide Mononitrate (Isosorbide Mononitrate ER) 30 Mg Tab, 30 MG PO DAILY Multivitamins (Thera M Plus Tablet) 1 Each Tablet, 1 TAB PO DAILY Torsemide (Torsemide) 20 Mg Tablet, 20 MG PO DAILY Torsemide (Torsemide) 10 Mg Tablet, 10 MG PO QPM TAKES AT 1700 Scheduled PRN Lorazepam (Lorazepam) 1 Mg Tablet, 1 MG PO TID PRN for ANXIETY Nitroglycerin (Nitrostat) 0.4 Mg Tab.subl, 0.4 MG SL NITRO PRN for CHEST PAIN Allergies Coded Allergies: codeine (Verified Allergy, Mild, NAUSEA, 08/07/20) A-FIB/CHADSVASC A-FIB History Current/History of A-Fib/PAF?: No GME ATTESTATION GME ATTESTATION My faculty preceptor for this patient encounter was physically present during the encounter and was fully available. All aspects of the patient interview, examination, medical decision making process, and medical care plan development were reviewed and approved by the faculty preceptor. The faculty preceptor is aware and concurs with the plan as stated in the body of this note and will att est to such by his/her cosignature. ATTENDING NOTE I agree with the findings as documented above with the following additions. TIME OF SERVICE 420 AM is a 65 yr old w a hx of DM1, CAD/MIs and stents x7, HFpEF, and HTN who had a syncopal event and was found to have a low serum glucose by EMS and had resolution of his AMS w glucagon and D10. #Syncope due Hypoglycemia 2/2 accidental insulin OD Trop, CT head and cervical spine are unrevealing -admit to ICU for frequent neurochecks and FSBS Q1-2H / D5NS / hold antiglycemic agents for the next 24H to allow body to recalibrate and reduce his risk of developing hypoglycemic unawareness / will tolerate high sugars and ask RNs to contact MD if serum glucose is >300 /u A1C/ will ask the day time team to refer pt to [facility] so he can have a continuous insulin pump (per d/w w his [facility] in [place]) #Hypothermia 2/2 hypoglycemia Resolving Tmin 91.0 # Bradycardia 2/2 hypoglycemia Resolving - Renzo dodge #Uncontrolled HTN -c/w Coreg, torsemide, irbesartan, add amlodipine #HFpEF Risk factors HTN, DM and high BMI Plan: f/u Echo that was scheduled for today #CAD -ASA, clopidogrel, Imdur and Coreg, not sure why he is not on statin #Obesity w BMI if 31.6, co-existing DM and ROCIO complicates care rest per 's H&P PURA CASTLE MD Aug 07, 2020 05:38 ACE BRAVO MD Aug 07, 2020 06:25
[2020-08-07] MEDS ORDERED: FLUBLOK(EGG FREE)(QUAD)INFLUENZA VACC 0.5ML SYRINGE 18YRS & OLDER IM SCH (06:15)
--- NOTE | 2020-08-07 06:37 | ECGEPIP ---
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
[2020-08-07] MEDS: amLODIPine 5 MG TAB PO SCH (06:40)
[2020-08-07] MEDS ORDERED: HumaLOG INSULIN (NovoLOG) PER UNIT SC SCH ×3 (07:30→21:00)
--- NOTE | 2020-08-07 07:52 | IPNPDOC ---
Subjective Date Seen The patient was seen on 08/07/20. Subjective Chief Complaint/HPI HPI: Pt was seen at bedside this am. He's AAOx3 and states that he feels "great" now and that he doesn't think he needs to be in the ICU or at the hospital. when asked about what happened that brought him to the hospital, he states that all he remembers is eating candy corn and then became hypoglycemic. He said he could "feel himself getting hypoglyemic" so he ripped off his insulin pump that he had on. The next thing he knew was ending up in the ER. Denies CP, SOB, abdominal pain, fever, chills, n/v/d. Complaining about urinary cathether used for temperature montoring since patient was hypothermic on presentation to the ER. PHYSICAL EXAM VITAL SIGNS: see below GENERAL: alert and oriented, in no apparent distress, pleasant and conversant in full sentences. HEENT: PERRL, EOMI, Oral mucous membranes are moist without lesions. NECK: No JVD, Adenopathy, thyromegaly CHEST/LUNGS: Lungs are clear bilaterally without rhonchi, rales, or wheezes HEART: Regular rate and rhythm. 2/6 BRITTON heard best in RUSB. Distal pulses are 2+. No carotid bruits appreciated. ABDOMEN: Soft, nontender, and nondistended. Bowel sounds are positive. No organo megaly is appreciated. No masses are appreciated. There are no peritoneal signs. EXTREMITIES: Trace peripheral edema. There is no focal long bone tenderness or deformity. SKIN: The patients skin is warm and dry, without rashes or lesions. PSYCHIATRIC: AAO x 3, normal mood/affect NEUROLOGIC: The patient has 5/5 strength to the upper and lower extremities bilaterally. Sensation is intact throughout. Deep tendon reflexes are 2+ in all four extremities. There are no deficits to the cranial nerves. LABS: see below IMAGING: No new imaging. All imaging WNL Assessment /Plan Assessment This is a 65 YO M with CAD s/p multiple MIs and stents, HFpEF, Major depressive disorder, who presents after being found down at home found to have hypoglycemic encephalopathy likely 2/2 insulin overdose and on arrival to ER is found to be hypothermic and subsequently warmed by warming blanket and given boluses of D50. He was admitted to ICU for further mgmt. Per ER physician and patient's , this may have been a suicidal attempt. Plan/VTE VTE Prophylaxis Ordered?: Yes Plan # Hypoglycemic encephalopathy and fall - Imaging CT cervical brain- WNL; no intracranial hemorrhage - AAOX3 this am - Concern for suicide attempt based off of history given by patient's when patient was in the ER with altered mental status - Due to HIPPA regulations, pending auspicious psychiatrist for consultation - D/C'd insulin pump; continue sliding scale with SSI and hypoglycemic protocol - 2 boluses of D50 given - Continue FSBS Q2H - Patient's insulin pump will be restarted at same home dosage where he was intially on as per PCP #HyperK+ - 6.1 this am - 1 dose of ca gluconate given - repeat K level after - Will continue to monitor lytes closely and replete as needed # Severe hypothermia: Temperature found to be 91.0 on arrival - Warming blanket applied, warmed IV fluids - Continue to monitor vitals closely - Continuous telemetry # Leukocytosis: -Blood cultures pending -CXR negative for PNA # Hx of HFpEF - Follows Dr. Bryan and is scheduled for echo in office next week - No fluid overload state on exam ; trace peripheral edema; lungs clear -Continue home Torsemide -Strict I/O, fluid restriction 2,000cc/day -Echo ordered- pending results # Hx of CAD s/p multiple MIs and stents -Troponins negative -EKG: sinus bradycardia rate of 53, unchanged from prior- Carvedilol held this am (Hold parameter in place for HR <60) -Continue Coreg, Isosorbide, Plavix, ASA # HLD -Continue home Atorvastatin #Hx of MDD - Per patient's , she has a strong suspicion this may be a suicidal attempt. Pt's had significant hx of MDD - Psychiatry evaluation - appreciate recommendations DVT ppx: SQH Diet: consistent carbohydrate Fluids: None; fluid restriction 2L/day Consultations: Psychiatry (Dr. Zarco). Disposition: Remain in ICU and pending psychiatric evaluation per Dr. Zarco. currently medically cleared will see patient overnight and if stable, then dc tomorrow am with his insulin pump. VS, I&O, 24H, Fishbone Vital Signs/I&O Vital Signs Date Time Temp Pulse Resp B/P (MAP) Pulse Ox O2 Delivery O2 Flow Rate FiO2 08/07/20 07:00 96.1 68 18 146/67 (93) 99 Room Air 08/07/20 02:26 2.0 I&O- Last 24 Hours up to 6 AM 08/07/20 06:00 Intake Total 525 ml Output Total 800 ml Balance -275 ml Laboratory Data 24H LABS Laboratory Tests 2 08/07/20 02:28: Bedside Glucose (Misc Panel) 177H 08/07/20 02:58: Immature Granulocyte % (Auto) 0.8, Neutrophils (%) (Auto) 66.2H, Lymphocytes (%) (Auto) 22.9L, Monocytes (%) (Auto) 7.5H, Eosinophils (%) (Auto) 2.1, Basophils (%) (Auto) 0.5, Neutrophils # (Auto) 6.8, Lymphocytes # (Auto) 2.3, Monocytes # (Auto) 0.8, Eosinophils # (Auto) 0.2, Basophils # (Auto) 0.1, Nucleated Red Blood Cells % (auto) 0.0, Lactic Acid Level 1.1, Total Bilirubin 0.3, Direct Bilirubin 0.1, Aspartate Amino Transf (AST/SGOT) 25, Alanine Aminotransferase (ALT/SGPT) 42, Alkaline Phosphatase 135H, SU-Aro-D-Type Natriuretic Peptide 58, Total Protein 7.1, Albumin 3.6, Albumin/Globulin Ratio 1.0, Thyroid Stimulating Hormone (TSH) 2.260, Salicylates Level < 1.7L, Urine Opiates Screen NEGATIVE, Urine Methadone Screen NEGATIVE, Acetaminophen Level < 2.0L, Urine Barbiturates Screen NEGATIVE, Urine Phencyclidine Screen NEGATIVE, Urine Amphetamines Screen NEGATIVE, Urine Benzodiazepines Screen NEGATIVE, Urine Cocaine Metabolite Screen NEGATIVE, Urine Cannabinoids Screen NEGATIVE, Ethyl Alcohol Level < 0.003 08/07/20 03:01: POC Glucose (Misc Panel) 173H, POC Sodium (Misc Panel) 142, POC Potassium (Misc Panel) 3.9, POC Chloride (Misc Panel) 106, POC Total CO2 (Misc Panel) 22.0L, POC Blood Urea Nitrogen (Misc Panel 32H, POC Ionized Calcium (Misc Panel) 5.6H, POC Creatinine (Misc Panel) 1.1, POC Hematocrit (Misc Panel) 41.0 08/07/20 03:03: POC Troponin I (Misc) 0.01 08/07/20 03:32: Bedside Glucose (Misc Panel) 79L 08/07/20 03:59: Bedside Glucose (Misc Panel) 154H 08/07/20 04:40: Bedside Glucose (Misc Panel) 130H 08/07/20 05:52: Bedside Glucose (Misc Panel) 145H CBC/BMP Laboratory Tests 08/07/20 02:58 Microbiology Microbiology 08/07/20 Blood Culture, Received Pending 08/07/20 Blood Culture, Received Pending GME ATTESTATION GME ATTESTATION My faculty preceptor for this patient encounter was physically present during the encounter and was fully available. All aspects of the patient interview, examination, medical decision making process, and medical care plan development were reviewed and approved by the faculty preceptor. The faculty preceptor is aware and concurs with the plan as stated in the body of this note and will attest to such by his/her cosignature. ATTENDING NOTE Patient was seen and examined by me personally with the residents and students. Agree with the above assessment and plan Christiana Trejo DO Aug 07, 2020 07:52 EMIGDIO SNEED MD Aug 13, 2020 09:36
[2020-08-07] MEDS: HEPARIN SOD (PORCINE) 5000UNITS/ML 1ML VIAL/SYRINGE SC SCH ×2 (09:00→21:01)
[2020-08-07] MEDS ORDERED: TORSEMIDE 10 MG TABLET PO SCH ×2 (09:00→17:00)
[2020-08-07 09:48] LABS: ALBUMIN 3.5 GM/DL (3.2-5.2); ALT/SGPT 47 U/L (12-78); BILIRUBIN,TOTAL 0.7 MG/DL (0.2-1.0); BLOOD UREA NITROGEN 34 MG/DL (7-18); CALCIUM LEVEL 9.2 MG/DL (8.8-10.2); CARBON DIOXIDE LEVEL 16 MEQ/L (21-32); CHLORIDE LEVEL 110 MEQ/L (98-107); CPK CREATINE PHOSPHOKINASE 155 U/L (39-308); CREATININE FOR GFR 1.22 MG/DL (0.70-1.30); GLOMERULAR FILTRATION RATE > 60.0 (>49); GLUCOSE, FASTING 295 MG/DL (70-100); SODIUM LEVEL 137 MEQ/L (136-145); TOTAL PROTEIN 6.6 GM/DL (6.4-8.2)
[2020-08-07] MEDS: HumaLOG INSULIN (NovoLOG) PER UNIT SC SCH ×3 (09:49→16:42)
[2020-08-07] MEDS: MULTIVITAMINS/MINERALS THERAP 1 TAB PO SCH (09:51)
[2020-08-07] MEDS: CLOPIDOGREL 75 MG TAB PO SCH (09:51)
[2020-08-07] MEDS: ASPIRIN ENTERIC 325 MG TAB PO SCH (09:51)
[2020-08-07] MEDS: ISOSORBIDE MON. (IMDUR) 30 MG XR TAB PO SCH (09:53)
[2020-08-07] MEDS: CARVedilol 6.25 MG TAB PO SCH ×2 (09:53→21:01)
[2020-08-07] MEDS: COSOPT OCUMETER PLUS 10ML (DORZOLAMIDE/TIMOLOL) OU SCH ×2 (09:54→21:02)
[2020-08-07] MEDS: IRBESARTAN 150MG TAB PO SCH ×2 (11:14→21:01)
[2020-08-07] MEDS ORDERED: CALCIUM GLUCONATE 1,000 MG in D5W MINI-BAG PLUS 100 ML IV ONE (12:00)
[2020-08-07 12:28] LABS: CALCIUM LEVEL 8.9 MG/DL (8.8-10.2); CREATININE FOR GFR 1.37 MG/DL (0.70-1.30); GLOMERULAR FILTRATION RATE 55.9 (>49); POTASSIUM SERUM 4.8 MEQ/L (3.5-5.1)
[2020-08-07] MEDS ORDERED: TAMSULOSIN 0.4 MG CAP PO ONE (15:45)
--- NOTE | 2020-08-07 16:08 | MHHPEPDOC ---
General Date Of Admission: Aug 06, 2020 Legal Status: Psychiatric Consult ICU Chief Complaint Patient is a 65 year old , Semi-Retired, Domiciled, Male who is admitted to ICU for Hypoglycemic Complications. Patient reports that he woke up during the night when he was low, attempted to get to the kitchen but was unable to test himself before he fell. According to his , patient may have given himself an extra bolus of insulin, but cannot ascertain whether this was a suicide attempt or being careless. History of Present Illness HISTORY OF THE PRESENT ILLNESS: Patient is a 65 -year-old , Semi-Retired, Domiciled, , male, who was brought to [facility] for hypoglycemic complications. Patient reports readily that he has been stressed due to finances, his 's recent job loss, his grown children having marital and family difficulties but denies that this was a suicide attempt. He states, "I do not wish to kill myself." He states that yesterday was a full day for him. 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 He also report states that he and his are on a Vegetarian diet. He stated, "I gave myself 7 units, but I needed carbs." He also admitted to eating 1/2 cup of candy corn, and states "I should not have bolused but I gave myself 7 units" Patient reports that his recently loss her job which is making him worry about the cost of the health insurance - [employer] payment is $1300 per month. He states that he is relying on her to work another 2 years in order to bridge his ability to receive Medicare. He admits that he had texted to his daughter "I am tired of it all being left for me to fix, I cannot afford to get help, I might as well start drinking." He clarifies that his frustration is that he and his cannot afford for her to be without a job. He feels that she should have not taken any time off and started looking for a job immediately instead of taking time off to see family. She is currently working for their son, but this is temporary. He says he is worried about his finances but does not endorse being scared or fearful of financial ruin. Psychiatric Review of Systems Depression (2 or more weeks): depressed mood, insomnia/hypersomnia, feelings of excess/guilt, difficulty concentrating, other (agitation, sadness) Geetha (4 or more days of): denies Psychosis: denies PTSD: denies Anxiety: situational anxiety, stressor related anxiety Past Psychiatric History Previous Psychiatric Diagnosis: Anxiety Disorder. Previous Psychiatric Admissions: None Suicide Attempts: No history of suicidal ideation, gestures or attempts. Denies that this was a suicide gesture or attempt Psychiatric Follow-up: No current provider Psychiatric medications: Ativan 1mg three times daily, stated, "1 bottle has l asted me a year, I don't use this often" Past Medical History Medical Problems Medical: Juvenile Diabetes, Cardiac, CHF, Diabetic Neuropathy, Retinal Neuropathy, History of Syncope, History of Hypoglycemia, History of Hypokalemia Surgeries: Cataract Surgery Bilaterally, Right Shoulder Surgery Allergies: Environmental Head Injury: No Seizures: No Hospitalizations: Yes Surgeries: Yes Family Medical/Psychiatric HX Psychiatric Disorders: Yes Addiction: Yes Suicide Attemps/Completions: Yes Addiction History alcohol (History 35 years ago) Social History Childhood: Patient born to both parents, reports that his father was to his mother's sister prior to marrying his mother. He is 1 of 9 children. 2 of his older brother committed suicide. History of Drugs and Alcohol in the family. He reports that both of his brothers committing suicide was heartbreaking for him. He wished that his brothers would have sought help for their depression. He reports that he would not put his family through this kind of pain. 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 He bolused for insulin, hadn't eaten, worked all day and eat candy corn." She is concerned that because his side of the bed was dry, because when he is low, he often is diaphoretic and the bed was dry. In the past, that patient has woken her up when he is hypoglycemic. She found him on the floor in the kitchen. And it concerns her that he had made depressive statements, none suicidal in nature but feels that he does not need an admission to Inpatient Mental Health but is requesting an anti-depressant and referral for outpatient mental health services. Mental Status Examination General Appearance: appears stated age, hospital scubs/clothing Build: overweight Demeanor: average Eye Contact: average Activity: average Behavior: cooperative Speech: clear, normal volume, reg/rate,rhythm,volume Mood: euthymic Affect: congruent Thought Process: logical/linear Thought Content (Delusions): none reported Thought Content (Other): none reported Thought Content (Aggressive): none reported Perception (Hallucinations): none reported Perception (Other): none reported Cognition (Impairment of): none reported Cognition(Intelligence Est.): above average Oriented: Awake, Alert, Oriented times three Insight: good Judgment: Good Psychosis: Denies Diagnoses Unspecified Depressive Disorder Assessment Patient is calm and cooperative in the interview. He appears to be sincere but reporting frustration with and finances and his children's marital discord. He denies feelings of depression but positive symptoms were reported to me by his and noted in the MSE. He is agreeable to a trial of Cymbalta which may help with depression and I discussed that Cymbalta can be effective with neuropathy which the patient was more receptive to. I encouraged the patient to be seen at [facility] which he had declined in the past, but was agreeable when I discussed the possibility of being seen by a psychiatrist who does not know him. (Telepsychiatrist or one of the residents). Patient reports limited use of Ativan and there does not seem to be a risk with his prescription stating that he doesn't often use this. Initial Treatment Plan Case discussed with Dr. Zarco. There is no recommendation for inpatient mental health admission. Patient to start on Cymbalta 20 mg at HS. This order was placed. Recommendation for patient to follow up at [facility]. Due to the sensitivity of this case, patient would benefit from seeing a telepsychiatrist or one of the residents. TIME SPENT COUNSELING AND COORDINATING INITIAL CARE: 90 minutes. Vital Signs Vital Signs Date Time Temp Pulse Resp B/P (MAP) Pulse Ox O2 Delivery O2 Flow Rate FiO2 08/07/20 12:00 98.1 85 21 156/65 (95) 96 Room Air 08/07/20 02:26 2.0 Laboratory Data 24H Labs Laboratory Tests 2 08/07/20 02:28: Bedside Glucose (Misc Panel) 177H 08/07/20 02:58: Immature Granulocyte % (Auto) 0.8, Neutrophils (%) (Auto) 66.2H, Lymphocytes (%) (Auto) 22.9L, Monocytes (%) (Auto) 7.5H, Eosinophils (%) (Auto) 2.1, Basophils (%) (Auto) 0.5, Neutrophils # (Auto) 6.8, Lymphocytes # (Auto) 2.3, Monocytes # (Auto) 0.8, Eosinophils # (Auto) 0.2, Basophils # (Auto) 0.1, Nucleated Red Blood Cells % (auto) 0.0, Lactic Acid Level 1.1, Total Bilirubin 0.3, Direct Bilirubin 0.1, Aspartate Amino Transf (AST/SGOT) 25, Alanine Aminotransferase (ALT/SGPT) 42, Alkaline Phosphatase 135H, FK-Oac-R-Type Natriuretic Peptide 58, Total Protein 7.1, Albumin 3.6, Albumin/Globulin Ratio 1.0, Thyroid Stimulating Hormone (TSH) 2.260, Salicylates Level < 1.7L, Urine Opiates Screen NEGATIVE, Urine Methadone Screen NEGATIVE, Acetaminophen Level < 2.0L, Urine Barbiturates Screen NEGATIVE, Urine Phencyclidine Screen NEGATIVE, Urine Amphetamines Screen NEGATIVE, Urine Benzodiazepines Screen NEGATIVE, Urine Cocaine Metabolite Screen NEGATIVE, Urine Cannabinoids Screen NEGATIVE, Ethyl Alcohol Level < 0.003 08/07/20 03:01: POC Glucose (Misc Panel) 173H, POC Sodium (Misc Panel) 142, POC Potassium (Misc Panel) 3.9, POC Chloride (Misc Panel) 106, POC Total CO2 (Misc Panel) 22.0L, POC Blood Urea Nitrogen (Misc Panel 32H, POC Ionized Calcium (Misc Panel) 5.6H, POC Creatinine (Misc Panel) 1.1, POC Hematocrit (Misc Panel) 41.0 08/07/20 03:03: POC Troponin I (Misc) 0.01 08/07/20 03:32: Bedside Glucose (Misc Panel) 79L 08/07/20 03:59: Bedside Glucose (Misc Panel) 154H 08/07/20 04:40: Bedside Glucose (Misc Panel) 130H 08/07/20 05:52: Bedside Glucose (Misc Panel) 145H 08/07/20 07:51: Bedside Glucose (Misc Panel) 224H 08/07/20 08:59: Anion Gap 11, Glomerular Filtration Rate > 60.0, Calcium Level 9.2, Total Bilirubin 0.7#, Aspartate Amino Transf (AST/SGOT) 46H, Alanine Aminotransferase (ALT/SGPT) 47, Alkaline Phosphatase 130H, Total Creatine Kinase 155, Total Protein 6.6, Albumin 3.5, Albumin/Globulin Ratio 1.1 08/07/20 09:40: Bedside Glucose (Misc Panel) 345H 08/07/20 11:05: Bedside Glucose (Misc Panel) 363H 08/07/20 11:56: Anion Gap 8, Glomerular Filtration Rate 55.9, Calcium Level 8.9 08/07/20 12:40: Bedside Glucose (Misc Panel) 285H CBC/BMP Laboratory Tests 08/07/20 02:58 08/07/20 08:59 08/07/20 11:56 Medications Scheduled Aspirin (Aspirin EC) 325 Mg Tablet.dr, 325 MG PO DAILY, (Reported) Atorvastatin Calcium (Atorvastatin Calcium) 40 Mg Tablet, 60 MG PO QHS, (Reported) Carvedilol (Carvedilol) 6.25 Mg Tablet, 6.25 MG PO BID, (Reported) Clopidogrel Bisulfate (Clopidogrel) 75 Mg Tab, 75 MG PO DAILY, (Reported) Dorzolamide HCl/Timolol Maleat (Dorzolamide-Timolol Eye Drops) 10 Ml Drops, 1 DROP OU BID, (Reported) Insulin Human Lispro (Humalog) 100 Unit/1 Ml Vial, 1 DOSE SC ASDIRECTED, (Report ed) VIA INSULIN PUMP Irbesartan (Irbesartan) 150 Mg Tablet, 150 MG PO BID, (Reported) Isosorbide Mononitrate (Isosorbide Mononitrate ER) 30 Mg Tab, 30 MG PO DAILY, (Reported) Multivitamins (Thera M Plus Tablet) 1 Each Tablet, 1 TAB PO DAILY, (Reported) Torsemide (Torsemide) 20 Mg Tablet, 20 MG PO DAILY, (Reported) Torsemide (Torsemide) 10 Mg Tablet, 10 MG PO QPM, (Reported) TAKES AT 1700 Scheduled PRN Lorazepam (Lorazepam) 1 Mg Tablet, 1 MG PO TID PRN for ANXIETY, (Reported) Nitroglycerin (Nitrostat) 0.4 Mg Tab.subl, 0.4 MG SL NITRO PRN for CHEST PAIN, (Reported) Allergies Coded Allergies: codeine (Verified Allergy, Mild, NAUSEA, 08/07/20) ERICKSON ASHFORD NP Aug 07, 2020 15:50
[2020-08-07] MEDS ORDERED: DULoxetine 20 MG CAP (CYMBALTA) PO SCH (21:00)
[2020-08-07] MEDS ORDERED: ATORVASTATIN 20 MG TAB PO SCH (21:00)
[2020-08-08] VITALS: BP 163/68
[2020-08-08 04:59] LABS: HEMATOCRIT 35.8 % (42.0-52.0); HEMOGLOBIN 11.8 g/dl (13.5-17.5); MEAN CORPUSCULAR HEMOGLOBIN 29.8 pg (27.0-33.0); MEAN CORPUSCULAR VOLUME 90.4 fl (80.0-96.0); PLATELET COUNT, AUTOMATED 192 10^3/uL (150-450); RED BLOOD COUNT 3.96 10^6/uL (4.30-6.10)
[2020-08-08 05:29] LABS: BILIRUBIN,TOTAL 0.4 MG/DL (0.2-1.0); CALCIUM LEVEL 8.7 MG/DL (8.8-10.2); CREATININE FOR GFR 1.53 MG/DL (0.70-1.30); GLOMERULAR FILTRATION RATE 49.2 (>49); MAGNESIUM LEVEL 2.1 MG/DL (1.8-2.4); POTASSIUM SERUM 5.3 MEQ/L (3.5-5.1); TOTAL PROTEIN 6.2 GM/DL (6.4-8.2)
[2020-08-08] MEDS: HumaLOG INSULIN (NovoLOG) PER UNIT SC SCH (07:50)
[2020-08-08 08:00] VITALS: BP 157/67
[2020-08-08 08:09] VITALS: BP 157/87
[2020-08-08] MEDS: COSOPT OCUMETER PLUS 10ML (DORZOLAMIDE/TIMOLOL) OU SCH (08:09)
[2020-08-08] MEDS: ISOSORBIDE MON. (IMDUR) 30 MG XR TAB PO SCH (08:09)
[2020-08-08] MEDS: IRBESARTAN 150MG TAB PO SCH (08:10)
[2020-08-08] MEDS: CLOPIDOGREL 75 MG TAB PO SCH (08:10)
[2020-08-08] MEDS: ASPIRIN ENTERIC 325 MG TAB PO SCH (08:10)
[2020-08-08] MEDS: MULTIVITAMINS/MINERALS THERAP 1 TAB PO SCH (08:10)
[2020-08-08] MEDS: amLODIPine 5 MG TAB PO SCH (08:10)
[2020-08-08] MEDS: CARVedilol 6.25 MG TAB PO SCH (08:11)
[2020-08-08] MEDS: HEPARIN SOD (PORCINE) 5000UNITS/ML 1ML VIAL/SYRINGE SC SCH (08:11)
[2020-08-08] MEDS ORDERED: CALCIUM GLUCONATE 1,000 MG in D5W MINI-BAG PLUS 100 ML IV ONE (08:45)
[2020-08-08] MEDS ORDERED: SOD POLYSTYRENE SULFONATE SUSP 15 GM/60 ML UD PO ONE (09:00)
[2020-08-08] MEDS ORDERED: TAMSULOSIN 0.4 MG CAP PO SCH (09:00)
[2020-08-08] MEDS ORDERED: FLOM0.4C39 PO (10:42)
--- NOTE | 2020-08-08 10:48 | DS.PDOC ---
Discharge Summary General Date of Admission Aug 07, 2020 at 03:59 Date of Discharge 08/08/20 Discharge Summary She complains Found down Final diagnosis Hypoglycemia Depression History of present illness and Hospital course Aman Corrales is a 65 YO M with DM1, CAD s/p several stents and diastolic CHF who presented to the ED after being found down at home by his . EMS was activated and reports giving glucagon and D10 on arrival for hypoglycemia. According to ED staff, the patient was confused upon arrival to the ED but is fully oriented at the time of my interview. The patient reports that he r emembers eating some candy corn around 9pm and then adjusting his basal dose of insulin. He states that he has recently been adjusting his insulin dosing with his PCP, Juancarlos Ford. He has been having elevated blood sugars over the past few days and states he has been self-adjusting his insulin pump and increasing his insulin sliding scale. Upon speaking to ED staff and corroborating story with the patient's , there is some concern about suicide attempt as the patient has recently had depressed moods. The patient denies any recent illness. No fevers, chills, n/v/d or shortness of breath. On my encounter, the patient denies any suicidal ideation and insisted that this is because of he for getting that he bolused himself and by mistake bolused himself twice with insulin because he ate a sugar candy. He was seen by psychiatry and they cleared him for discharge with follow up as an outpatient and was started on Seroquel. Also, his insulin pump was discontinued initially and now he'll be continuing the insulin pump as per his request. He does not want to use any insulin pens. He has been advised to keep a log of the boluses. He gives himself or that there is no more any confusion like this. He was also found to have mild hyperkalemia and slight AK I and for that reason his A. fib. His heart and has been on hold and I have told him to continue holding it until he sees his PCP and gets a repeat BMP done. Currently, his potassium is 4.9. He is supposed to see the PCP on Tuesday. Also, he has had some urinary retention issues. For that reason, he has been started on Flomax and I have requested him that he scheduled an appointment with urology to his PCP soon. He is medically optimized for discharge and is insisting of going home today and will require to follow with the PCP to get his renal function checked on Tuesday as it has been slightly creeping up. He understands and wants to follow-up as an outpatient with no further inpatient management. Physical examination GENERAL: alert and oriented, in no apparent distress, pleasant and conversant in full sentences. HEENT: PERRL, EOMI, Oral mucous membranes are moist without lesions. NECK: The patient has no noted JVD. No adenopathy is appreciated. No thyromegaly CHEST/LUNGS: Lungs are clear bilaterally without rhonchi, rales, or wheezes. There is no subcutaneous air appreciated. There is no tenderness to the chest wall. HEART: Regular rate and rhythm. 2/6 BRITTON heard best in RUSB. Distal pulses are 2+. No carotid bruits appreciated. ABDOMEN: Soft, nontender, and nondistended. Bowel sounds are positive. No organomegaly is appreciated. No masses are appreciated. There are no peritoneal signs. There is no [place] sign. EXTREMITIES: No peripheral edema. There is no focal long bone tenderness or deformity. SKIN: The patients skin is warm and dry, without rashes or lesions. PSYCHIATRIC: AAO x 3, normal mood/affect NEUROLOGIC: The patient has 5/5 strength to the upper and lower extremities bilaterally. Sensation is intact throughout. Deep tendon reflexes are 2+ in all four extremities. There are no deficits to the cranial nerves. LABORATORY DATA: See below. Mediictations. As per discharge reconciliation medication list Activity as tolerated Diet. 2 g sodium diet Follow-up appointments. PCP in 1 week. Follow-up with psychiatry. Nonicteric Condition on discharge. Patient is medically optimized for discharge Discharge disposition: Home Total time spent on this discharge including coordination of care, review of chart documentation and actual patient contact is around 35 minutes Vital Signs/I&Os Vital Signs Date Time Temp Pulse Resp B/P (MAP) Pulse Ox O2 Delivery O2 Flow Rate FiO2 08/08/20 08:09 157/87 08/08/20 08:00 98.3 82 16 99 Room Air 08/07/20 02:26 2.0 I&O- Last 24 Hours up to 6 AM 08/08/20 06:00 Intake Total 1595 ml Output Total 1475 ml Balance 120 ml Laboratory Data Labs 24H Laboratory Tests 2 08/07/20 11:05: Bedside Glucose (Misc Panel) 363H 08/07/20 11:56: Anion Gap 8, Glomerular Filtration Rate 55.9, Calcium Level 8.9 08/07/20 12:40: Bedside Glucose (Misc Panel) 285H 08/07/20 16:39: Bedside Glucose (Misc Panel) 313H 08/07/20 20:47: Bedside Glucose (Misc Panel) 323H 08/08/20 04:37: Nucleated Red Blood Cells % (auto) 0.0, Anion Gap 7L, Glomerular Filtration Rate 49.2, Calcium Level 8.7L, Magnesium Level 2.1, Total Bilirubin 0.4, Aspartate Amino Transf (AST/SGOT) 24, Alanine Aminotransferase (ALT/SGPT) 40, Alkaline Phosphatase 140H, Total Protein 6.2L, Albumin 3.0L, Albumin/Globulin Ratio 0.9 08/08/20 07:43: Bedside Glucose (Misc Panel) 417H CBC/BMP Laboratory Tests 08/07/20 11:56 08/08/20 04:37 08/08/20 09:25 FSBS Laboratory Tests Test 08/07/20 11:05 08/07/20 12:40 08/07/20 16:39 08/07/20 20:47 Range/Units Bedside Glucose (Misc Panel) 363 285 313 323 80-115 MG/DL Test 08/08/20 07:43 Range/Units Bedside Glucose (Misc Panel) 417 80-115 MG/DL Microbiology Microbiology 08/07/20 Blood Culture - Preliminary, Resulted No growth after 24 hours . All specim... 08/07/20 Blood Culture - Preliminary, Resulted No growth after 24 hours . All specim... Discharge Medications Scheduled Aspirin (Aspirin EC) 325 Mg Tablet.dr, 325 MG PO DAILY, (Reported) Atorvastatin Calcium (Atorvastatin Calcium) 40 Mg Tablet, 60 MG PO QHS, (Reported) Carvedilol (Carvedilol) 6.25 Mg Tablet, 6.25 MG PO BID, (Reported) Clopidogrel Bisulfate (Clopidogrel) 75 Mg Tab, 75 MG PO DAILY, (Reported) Dorzolamide HCl/Timolol Maleat (Dorzolamide-Timolol Eye Drops) 10 Ml Drops, 1 DROP OU BID, (Reported) Insulin Human Lispro (Humalog) 100 Unit/1 Ml Vial, 1 DOSE SC ASDIRECTED, (Reported) VIA INSULIN PUMP Isosorbide Mononitrate (Isosorbide Mononitrate ER) 30 Mg Tab, 30 MG PO DAILY, (Reported) Multivitamins (Thera M Plus Tablet) 1 Each Tablet, 1 TAB PO DAILY, (Reported) Tamsulosin HCl (Flomax) 0.4 Mg Capsule, 0.4 MG PO DAILY Torsemide (Torsemide) 20 Mg Tablet, 20 MG PO DAILY, (Reported) Torsemide (Torsemide) 10 Mg Tablet, 10 MG PO QPM, (Reported) TAKES AT 1700 Scheduled PRN Lorazepam (Lorazepam) 1 Mg Tablet, 1 MG PO TID PRN for ANXIETY, (Reported) Nitroglycerin (Nitrostat) 0.4 Mg Tab.subl, 0.4 MG SL NITRO PRN for CHEST PAIN, (Reported) Allergies Coded Allergies: codeine (Verified Allergy, Mild, NAUSEA, 08/07/20) EMIGDIO SNEED MD Aug 08, 2020 10:48
[2020-08-08] MEDS ORDERED: CYMB1CAP4 PO (10:49)
--- NOTE | 2020-08-08 15:43 | ECHO ---
DATE OF PROCEDURE: 08/07/2020 Age: 65 Gender: Male Height: 168 cm Weight: 89 kg REFERRING PHYSICIAN: Liberty Torrez MD INDICATION: Dyspnea. MEASUREMENTS: 2D Measurements: Intraventricular septum 1.17 cm Posterior wall 0.95 cm Left ventricle diastole 4.7 cm Aortic root 2.9 cm Left atrium 3.9 cm Left atrial volume index 22 cm Inferior vena cava 1.8 cm Doppler Measurements: No aortic stenosis No aortic regurgitation Aortic valve velocity 205 cm/s LVOT velocity 132 cm/s LVOT VTI 28.8 cm Peak velocity across the LVOT with late dynamic obstruction dynamic gradient was 2.6 msec with a peak pressure gradient of 28 mmHg. Very mild mitral regurgitation No mitral stenosis Mitral E velocity 93.2 cm/s Mitral A velocity 107 cm/s Mitral deceleration time 187 msec Very mild tricuspid regurgitation Estimated right ventricular systolic pressure 50-55 mmHg Estimated right atrial pressure 5-10 mmHg No pulmonic regurgitation MITRAL ANNULAR TISSUE DOPPLER E prime lateral 8.6 cm/s, E prime septal 6.9 cm/s DESCRIPTION: Rhythm was sinus. Image quality was fair to poor. No pericardial effusion. This was a 2D, M-mode, color flow Doppler, and pulsed wave Doppler examination including mitral annular tissue Doppler. CONCLUSIONS: 1. Suggestive of moderate elevation of estimated right ventricle systolic pressure (50-55 mmHg). Normal right ventricular size and systolic function. Very mild tricuspid regurgitation. 2. Normal left ventricle internal dimensions and wall thickness. No regional wall motion abnormalities. Hyperdynamic left ventricular (LV) systolic function. Left ventricular ejection fraction (LVEF) 75% by visual estimate. Late peaking dynamic left ventricular outflow tract (LVOT) obstructive gradient of a mild degree with a peak dynamic left ventricular outflow tract (LVOT) velocity of 2.6 msec and peak gradient of 28 mmHg. Grade 1 left ventricular (LV) diastolic dysfunction (impaired relaxation filling pattern). 3. Mild aortic valve sclerosis with a 3-cuspid aortic valve. No aortic stenosis or regurgitation. 4. Mild mitral annular calcification. Very mild mitral regurgitation. 5. No pericardial effusion. MTDD
[2020-08-09] MEDS ORDERED: TORSEMIDE 20 MG TAB PO SCH (09:00)
== END 2020-08-08 11:52 | disposition home or self-care (01) | DRG 420 ==
LOC: M ED 02:22 → M ED INP 03:59 → ENRESERV 04:38 → M ICU 05:40
PROVIDERS: ADMIT Internal Medicine; ATTEND Internal Medicine
DX: E10.649 Type 1 diabetes mellitus with hypoglycemia without coma (principal); N17.9 Acute kidney failure, unspecified; I11.0 Hypertensive heart disease with heart failure; E87.5 Hyperkalemia; I50.32 Chronic diastolic (congestive) heart failure; I48.91 Unspecified atrial fibrillation; R68.0 Hypothermia, not associated with low environmental temperature; I25.10 Atherosclerotic heart disease of native coronary artery without angina pectoris; Z95.2 Presence of prosthetic heart valve; Z79.899 Other long term (current) drug therapy; Z79.4 Long term (current) use of insulin; Z88.5 Allergy status to narcotic agent; G47.33 Obstructive sleep apnea (adult) (pediatric); F32.9 Major depressive disorder, single episode, unspecified; F41.9 Anxiety disorder, unspecified; Z87.891 Personal history of nicotine dependence; I25.2 Old myocardial infarction

== ENCOUNTER → 2020-08-29 | Outpatient (CLI) | payer BC ==
[~2020-08-29] MED LIST changes: +ASPI-525 PO; +ATOR40TA75 PO; +CARV6.25 PO; +CYMB1CAP4 PO; +DORZ2SOL5 OU; +FLOM0.4C39 PO; +INSUHUMDS SC; +IRBE150T7 PO; +LORA1TAB4 PO; +NITR4TASL SL; +VITMTA PO
[2020-08-29 12:32] LABS: HEMOGLOBIN 13.2 g/dl (13.5-17.5); MEAN CORPUSCULAR HEMOGLOBIN 29.9 pg (27.0-33.0); MEAN CORPUSCULAR VOLUME 90.5 fl (80.0-96.0); PLATELET COUNT, AUTOMATED 299 10^3/uL (150-450); RED BLOOD COUNT 4.42 10^6/uL (4.30-6.10)
[2020-08-29 13:06] LABS: ALBUMIN 3.2 GM/DL (3.2-5.2); BILIRUBIN,TOTAL 0.3 MG/DL (0.2-1.0); CALCIUM LEVEL 9.4 MG/DL (8.8-10.2); CHOLESTEROL RISK RATIO 2.857 (<5); CREATININE FOR GFR 1.3 MG/DL (0.70-1.30); GLOMERULAR FILTRATION RATE 59.4 (>49); POTASSIUM SERUM 4.5 MEQ/L (3.5-5.1); TOTAL PROTEIN 6.7 GM/DL (6.4-8.2)
[2020-08-29 13:42] LABS: HEMOGLOBIN A1c 7.9 %
== END ==
LOC: M WUC 09:59
PROVIDERS: ATTEND Internal Medicine
DX: E78.5 Hyperlipidemia, unspecified (principal); E10.8 Type 1 diabetes mellitus with unspecified complications

== ENCOUNTER → 2020-11-05 | Outpatient (CLI) | payer BC ==
[~2020-11-05] MED LIST changes: -ASPI-525 PO; +ASPI325T48 PO
[2020-11-05 07:11] LABS: HEMATOCRIT 41.6 % (42.0-52.0); HEMOGLOBIN 13.6 g/dl (13.5-17.5); MEAN CORPUSCULAR HEMOGLOBIN 29.6 pg (27.0-33.0); MEAN CORPUSCULAR HGB CONC 32.7 g/dl (32.0-36.5); MEAN CORPUSCULAR VOLUME 90.6 fl (80.0-96.0); PLATELET COUNT, AUTOMATED 238 10^3/uL (150-450); RED BLOOD COUNT 4.59 10^6/uL (4.30-6.10); WHITE BLOOD COUNT 8.5 10^3/uL (4.0-10.0)
[2020-11-05 07:36] LABS: HEMOGLOBIN A1c 8.6 %
[2020-11-05 07:47] LABS: ALBUMIN 3.6 GM/DL (3.2-5.2); BILIRUBIN,TOTAL 0.2 MG/DL (0.2-1.0); CALCIUM LEVEL 8.9 MG/DL (8.8-10.2); CHOLESTEROL RISK RATIO 3.1 (<5); CREATININE FOR GFR 1.78 MG/DL (0.70-1.30); GLOMERULAR FILTRATION RATE 41.3 (>49); POTASSIUM SERUM 4.4 MEQ/L (3.5-5.1); TOTAL PROTEIN 7.2 GM/DL (6.4-8.2)
== END ==
LOC: M LAB 06:02
PROVIDERS: ATTEND Internal Medicine
DX: E78.5 Hyperlipidemia, unspecified (principal); E10.8 Type 1 diabetes mellitus with unspecified complications; I10 Essential (primary) hypertension

== ENCOUNTER → 2020-11-12 | Outpatient (REF) | payer BC, SELFPAY ==
[~2020-11-12] MED LIST changes: +ISOS1TAB35 PO; -ISOS30TA4 PO
== END ==
LOC: EDSTATUS 09:35 → M LABSMTC 09:41
PROVIDERS: ATTEND Pediatrics
DX: Z20.822 Contact with and (suspected) exposure to COVID-19 (principal)

== ENCOUNTER → 2020-12-08 | Outpatient (CLI) | payer BC ==
[~2020-12-08] MED LIST changes: -ISOS1TAB35 PO; +ISOS30TA4 PO
[2020-12-08 16:16] LABS: BASO # 0.1 10^3/uL (0.0-0.2); EOS # 0.2 10^3/uL (0.0-0.5); EOS % 3.3 % (0.0-3.0); HEMATOCRIT 40.7 % (42.0-52.0); HEMOGLOBIN 13.3 g/dl (13.5-17.5); LYMPH # 2.1 10^3/uL (1.5-5.0); LYMPH % 28.6 % (24.0-44.0); MEAN CORPUSCULAR HEMOGLOBIN 29.2 pg (27.0-33.0); MEAN CORPUSCULAR HGB CONC 32.7 g/dl (32.0-36.5); MEAN CORPUSCULAR VOLUME 89.5 fl (80.0-96.0); MONO # 0.6 10^3/uL (0.0-0.8); MONO % 7.8 % (0.0-5.0); NEUTROPHILS # 4.3 10^3/uL (1.5-8.5); NEUTROPHILS % 58.5 % (36.0-66.0); PLATELET COUNT, AUTOMATED 233 10^3/uL (150-450); RED BLOOD COUNT 4.55 10^6/uL (4.30-6.10); WHITE BLOOD COUNT 7.3 10^3/uL (4.0-10.0)
[2020-12-08 16:18] LABS: APPEARANCE, URINE HAZY (CLEAR); BACTERIA, URINE AUTO 1+ (NEGATIVE); BILIRUBIN, URINE AUTO NEGATIVE (NEGATIVE); BLOOD, URINE BLOOD NEGATIVE (NEGATIVE); COLOR, URINE YELLOW (YELLOW); GLUCOSE, URINE (UA) AUTO 1+ mg/dL (NEGATIVE); KETONE, URINE AUTO NEGATIVE (NEGATIVE); LEUKOCYTE ESTERASE, URINE AUTO 3+ (NEGATIVE); NITRITE, URINE AUTO NEGATIVE (NEGATIVE); PROTEIN, URINE AUTO NEGATIVE (NEGATIVE); RBC, URINE AUTO 4 /HPF (0-3); SPECIFIC GRAVITY URINE AUTO 1.008 (1.002-1.035); SQUAMOUS EPITHELIAL CELL UR AU 0 /HPF (0-6); UROBILINOGEN, URINE AUTO 0.2 mg/dL (0.0-2.0); WBC, URINE AUTO 138 /HPF (0-3)
[2020-12-08 16:38] LABS: ALBUMIN 3.7 GM/DL (3.2-5.2); CALCIUM LEVEL 9.7 MG/DL (8.8-10.2); CREATININE FOR GFR 1.37 MG/DL (0.70-1.30); GLOMERULAR FILTRATION RATE 55.9 (>49); MAGNESIUM LEVEL 2.2 MG/DL (1.8-2.4); PHOSPHORUS LEVEL 3.6 MG/DL (2.5-4.9); POTASSIUM SERUM 4.4 MEQ/L (3.5-5.1)
[2020-12-08 16:45] LABS: CREATININE,RANDOM URINE 45.6 MG/DL; TOTAL PROTEIN,RANDOM URINE 26.5 MG/DL (0.0-12.0)
[2020-12-08 16:51] LABS: PTH INTACT 115.3 PG/ML (18.5-88.0)
== END ==
LOC: M WUC 13:36
PROVIDERS: ATTEND Internal Medicine Nephrology
DX: E11.22 Type 2 diabetes mellitus with diabetic chronic kidney disease (principal); N18.31 Chronic kidney disease, stage 3a; N25.81 Secondary hyperparathyroidism of renal origin

== ENCOUNTER → 2020-12-10 | Outpatient (REF) | payer BC ==
[~2020-12-10] MED LIST changes: +ISOS1TAB35 PO; -ISOS30TA4 PO
== END ==
LOC: M LAB REF 16:47
PROVIDERS: ATTEND Internal Medicine Nephrology
DX: N39.0 Urinary tract infection, site not specified (principal)

== ENCOUNTER → 2020-12-15 | Outpatient (REF) | payer BC | LOC: M LAB REF 16:47 | PROVIDERS: ATTEND Internal Medicine Nephrology | DX: N39.0 Urinary tract infection, site not specified (principal) ==

== ENCOUNTER → 2020-12-15 | Outpatient (CLI) | payer BC ==
--- NOTE | 2020-12-15 15:36 | REP ---
INDICATION: CHRONIC KIDNEY DISEASE STAGE 3A COMPARISON: None TECHNIQUE: Real time jordan scale ultrasound examination using curved array transducer. FINDINGS: Kidneys are normal in reniform shape and demonstrate increased parenchymal echotexture and increased central sinus fat consistent with chronic renal disease. No hydronephrosis, nephrolithiasis, cystic or renal mass lesion. Right kidney measures 11.3 x 5.7 x 6.9 cm. Left kidney measures 10.6 x 4.5 x 5.7 cm. IMPRESSION: Chronic medical renal disease. <Electronically signed by Ozzy Felix > 12/15/20 [id number]
--- NOTE | 2020-12-15 15:38 | REP ---
INDICATION: CHRONIC KIDNEY DISEASE STAGE 3A COMPARISON: None TECHNIQUE: Real time B-mode ultrasound examination using curved array transducer. FINDINGS: Bladder is normal in appearance without wall thickening or mass lesion. Bilateral ureteral jets are identified. Prevoid bladder measures 16.4 x 13.2 x 9.9 cm (1113 cc) Postvoid bladder measures 13.9 x 10.3 x 6.6 cm (491 cc) Postvoid residual: 44% IMPRESSION: Abnormal elevated postvoid residual volume. Normal anatomical appearance to the bladder. <Electronically signed by Ozzy Felix > 12/15/20 [id number]
== END ==
LOC: M RAD 13:01
PROVIDERS: ATTEND Internal Medicine Nephrology
DX: N18.31 Chronic kidney disease, stage 3a (principal); N40.1 Benign prostatic hyperplasia with lower urinary tract symptoms

== ENCOUNTER → 2021-02-06 | Outpatient (CLI) | payer BC ==
[2021-02-06 11:44] LABS: ALBUMIN 3.6 GM/DL (3.2-5.2); ALT/SGPT 55 U/L (12-78); BILIRUBIN,TOTAL 0.3 MG/DL (0.2-1.0); BLOOD UREA NITROGEN 22 MG/DL (7-18); CALCIUM LEVEL 9.6 MG/DL (8.8-10.2); CARBON DIOXIDE LEVEL 31 MEQ/L (21-32); CHLORIDE LEVEL 108 MEQ/L (98-107); CHOLESTEROL LEVEL 142 MG/DL (<200); CHOLESTEROL RISK RATIO 2.535 (<5); GLOMERULAR FILTRATION RATE > 60.0 (>49); GLUCOSE, FASTING 244 MG/DL (70-100); HDL CHOLESTEROL 56 MG/DL (>40); LDL CHOLESTEROL 73 MG/DL (<100); NON-HDL-C 86 MG/DL; POTASSIUM SERUM 5.1 MEQ/L (3.5-5.1); SODIUM LEVEL 140 MEQ/L (136-145); TOTAL PROTEIN 6.7 GM/DL (6.4-8.2); TRIGLYCERIDES LEVEL 66 MG/DL (<150)
[2021-02-06 13:51] LABS: HEMOGLOBIN A1c 8.1 %
== END ==
LOC: M LAB 10:50
PROVIDERS: ATTEND Internal Medicine
DX: E78.5 Hyperlipidemia, unspecified (principal); E10.8 Type 1 diabetes mellitus with unspecified complications

== ENCOUNTER → 2021-02-16 | Outpatient (REF) | payer BC ==
[2021-02-16 19:16] LABS: CREATININE,RANDOM URINE 16.1 MG/DL; TOTAL PROTEIN,RANDOM URINE 12.4 MG/DL (0.0-12.0)
== END ==
LOC: M LAB REF 16:50
PROVIDERS: ATTEND Internal Medicine Nephrology
DX: E10.22 Type 1 diabetes mellitus with diabetic chronic kidney disease (principal); N18.31 Chronic kidney disease, stage 3a

== ENCOUNTER → 2021-05-16 | Outpatient (CLI) | payer BC ==
[2021-05-16 11:37] LABS: HEMATOCRIT 43.5 % (42.0-52.0); HEMOGLOBIN 14.7 g/dl (13.5-17.5); MEAN CORPUSCULAR HEMOGLOBIN 29.5 pg (27.0-33.0); MEAN CORPUSCULAR HGB CONC 33.8 g/dl (32.0-36.5); MEAN CORPUSCULAR VOLUME 87.3 fl (80.0-96.0); PLATELET COUNT, AUTOMATED 241 10^3/uL (150-450); RED BLOOD COUNT 4.98 10^6/uL (4.30-6.10); WHITE BLOOD COUNT 9.5 10^3/uL (4.0-10.0)
[2021-05-16 11:55] LABS: HEMOGLOBIN A1c 8.8 %
[2021-05-16 12:01] LABS: ALBUMIN 3.4 GM/DL (3.2-5.2); BILIRUBIN,TOTAL 0.5 MG/DL (0.2-1.0); CALCIUM LEVEL 9.1 MG/DL (8.8-10.2); CHOLESTEROL RISK RATIO 3.341 (<5); CREATININE FOR GFR 1.43 MG/DL (0.70-1.30); POTASSIUM SERUM 4.6 MEQ/L (3.5-5.1); TOTAL PROTEIN 6.9 GM/DL (6.4-8.2)
[2021-05-19 16:08] LABS: Lyme Disease IgG/IgM Antibodie <0.91 ISR (0.00-0.90); Lyme Disease IgM Ab Quantitati <0.80 index (0.00-0.79)
== END ==
LOC: M LAB 10:52
PROVIDERS: ATTEND Internal Medicine
DX: E78.5 Hyperlipidemia, unspecified (principal); I25.10 Atherosclerotic heart disease of native coronary artery without angina pectoris; S80.861A Insect bite (nonvenomous), right lower leg, initial encounter; X58.XXXA Exposure to other specified factors, initial encounter; Y92.89 Other specified places as the place of occurrence of the external cause; Y93.89 Activity, other specified; Y99.8 Other external cause status

== ENCOUNTER → 2021-05-18 | Outpatient (REF) | LOC: M LABSMTC 11:12 | PROVIDERS: ATTEND Pediatrics | DX: Z20.822 Contact with and (suspected) exposure to COVID-19 (principal) ==

== ENCOUNTER → 2021-09-08 | Outpatient (CLI) | payer BC ==
[2021-09-08 12:18] LABS: HEMOGLOBIN A1c 8.7 %
[2021-09-08 12:28] LABS: ALBUMIN 3.6 GM/DL (3.2-5.2); BILIRUBIN,TOTAL 0.4 MG/DL (0.2-1.0); CALCIUM LEVEL 9.6 MG/DL (8.8-10.2); CHOLESTEROL RISK RATIO 2.867 (<5); CREATININE FOR GFR 1.39 MG/DL (0.70-1.30); GLOMERULAR FILTRATION RATE 54.8 (>49); POTASSIUM SERUM 4.3 MEQ/L (3.5-5.1); TOTAL PROTEIN 6.8 GM/DL (6.4-8.2)
== END ==
LOC: M LAB 10:17
PROVIDERS: ATTEND Internal Medicine
DX: E78.5 Hyperlipidemia, unspecified (principal); E10.8 Type 1 diabetes mellitus with unspecified complications

== ENCOUNTER → 2021-09-15 | Outpatient (REF) | payer BC | LOC: M LAB REF 13:17 | PROVIDERS: ATTEND Internal Medicine Nephrology | DX: E10.22 Type 1 diabetes mellitus with diabetic chronic kidney disease (principal); N18.31 Chronic kidney disease, stage 3a ==

== ENCOUNTER 2021-10-18 12:42 | Emergency (ER) | payer BC ==
[~2021-10-18] VITALS: Ht 157.5 cm; Wt 86.4 kg
[2021-10-18 13:22] LABS: BASO % 0.3 % (0.0-1.0); EOS % 0.1 % (0.0-3.0); HEMATOCRIT 40.2 % (42.0-52.0); HEMOGLOBIN 13.4 g/dl (13.5-17.5); LYMPH # 1.5 10^3/uL (1.5-5.0); LYMPH % 13.1 % (24.0-44.0); MEAN CORPUSCULAR HEMOGLOBIN 29.3 pg (27.0-33.0); MEAN CORPUSCULAR HGB CONC 33.3 g/dl (32.0-36.5); MEAN CORPUSCULAR VOLUME 87.8 fl (80.0-96.0); MONO % 8.6 % (2.0-8.0); NEUTROPHILS # 8.7 10^3/uL (1.5-8.5); NEUTROPHILS % 77.3 % (36.0-66.0); PLATELET COUNT, AUTOMATED 201 10^3/uL (150-450); RED BLOOD COUNT 4.58 10^6/uL (4.30-6.10); WHITE BLOOD COUNT 11.3 10^3/uL (4.0-10.0)
[2021-10-18] MEDS ORDERED: LABETALOL 100MG/20ML VIAL IV STA ×2 (13:22→13:44)
[2021-10-18] MEDS ORDERED: ISOVUE-370 76% 100ML VIAL As Ordered ONE (13:23)
[2021-10-18 13:40] LABS: INR 0.96; PROTHROMBIN TIME 13.2 SECONDS (12.7-14.5)
[2021-10-18 13:41] LABS: PARTIAL THROMBOPLASTIN TIME 30.3 SECONDS (25.9-37.0)
[2021-10-18] MEDS ORDERED: NS IV ONE (13:50)
[2021-10-18] MEDS ORDERED: DESMOPRESSIN ACETATE IV ONE (13:50)
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
[2021-10-18 13:56] LABS: CK-MB VALUE MASS 5.7 NG/ML (<3.6); MB/CK RELATIVE INDEX 2.41 (< OR =4)
--- NOTE | 2021-10-18 13:57 | REP ---
INDICATION: trauma. COMPARISON: None. TECHNIQUE: Helical scanning is acquired and 4 mm axial images re-formatted. Coronal and sagittal MPR images are provided. FINDINGS: Lumbar vertebral body heights are preserved alignment is normal. There is some degenerative disc spurring at each level. Vacuum phenomena are noted in the discs at T12-L1 and T11-12. There are mild facet osteoarthritic changes in the lower lumbar spine. No fracture or collapse is seen. No paravertebral or intravertebral hematoma is appreciated. Urinary bladder is noted to be distended incidentally. IMPRESSION: No fracture or collapse seen. Degenerative spondylosis changes. Distended urinary bladder. <Electronically signed by Papito Nicolas > 10/18/21 [id number]
[2021-10-18 13:58] LABS: ALBUMIN 3.6 GM/DL (3.2-5.2); ALT/SGPT 43 U/L (12-78); BILIRUBIN,DIRECT 0.2 MG/DL (0.0-0.2); BILIRUBIN,TOTAL 0.6 MG/DL (0.2-1.0); BLOOD UREA NITROGEN 38 MG/DL (7-18); CALCIUM LEVEL 10.1 MG/DL (8.8-10.2); CARBON DIOXIDE LEVEL 25 MEQ/L (21-32); CHLORIDE LEVEL 107 MEQ/L (98-107); CREATININE FOR GFR 1.42 MG/DL (0.70-1.30); ETHYL ALCOHOL (ETHANOL) < 0.003 % (0.000-0.010); GLOMERULAR FILTRATION RATE 53.4 (>49); GLUCOSE, FASTING 169 MG/DL (70-100); LIPASE 127 U/L (73-393); POTASSIUM SERUM 4.4 MEQ/L (3.5-5.1); SODIUM LEVEL 139 MEQ/L (136-145); TOTAL PROTEIN 7.1 GM/DL (6.4-8.2)
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
[2021-10-18 14:02] LABS: FREE T4 0.99 NG/DL (0.76-1.46); THYROID STIMULATING HORMONE 0.71 uIU/ML (0.358-3.740)
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
--- OUTSIDE RECORDS SUMMARY | 2021-10-18 14:13 | CCD | Continuity of Care Document ---
Author Author Aman BRYAN MD Organization Unknown Address [id number] [place] [address], [place] [address] Phone [phone] Care Team Providers Care Juice Packaging Machines Setter Name Role Phone [place]aug[place], Ki HARMAN AUTM [phone] Marv Villaseñor MD AUTM [phone] Juancarlos Ford MD AUTM [phone] Rosie Wise MD AUTM [phone] Catarino Lyman MD AUTM [phone] Problems Active Problems Provider Date Coronary arteriosclerosis Aakash Bryan MD Onset: 2011 Old myocardial infarction Aakash Bryan MD Onset: 2011 Patient post percutaneous transluminal coronary angiop lasty Aakash Bryan MD Onset: 01/31/2012 Preoperative cardiovascular examination Aakash Bryan MD Onset: 01/31/2012 Benign essential hypertension Aakash Bryan MD Onset: Chronic diastolic heart failure Aakash Bryan MD Onset: 01/31/2012 Benign hypertensive heart disease with congestive card iac failure Aakash Bryan MD Onset: 01/31/2012 Pure hypercholesterolemia Aakash Bryan MD Onset: 2011 Electrocardiogram abnormal Aakash Bryan MD Onset: 01/30 Acute on chronic diastolic heart failure MAXINE Nino Onset: 04/27/2012 Precordial pain MAXINE Nino Onset: 04/27 Obesity Aakash Bryan MD Onset: 02/11/2014 Edema Aakash Bryan MD Onset: 02/11/2014 Right bundle branch block Aakash Bryan MD Onset: 2013 Entire body organ Aakash Bryan MD Onset: 09/25/2014 Essential hypertension Aakash Bryan MD Onset: 5 Atherosclerotic heart disease of [place] coronary artery with other forms of angina pectoris Aakash Bryan MD Onset: 04/20/2016 Dietary management surveillance NASH Fuentes Onset: 02/10/2018 Overweight Aakash Bryan MD Onset: 06/07/2019 Abnormal results of cardiovascular function studies Aakash Bryan MD Onset: 04/10/2021 Social History Type Date Description Comments Sex Unknown Tobacco Use Start: Unknown End: Unknown Former Cigarette Smo ker smoked cigarettes up to 3ppd x 10 years. Quit 1987 ETOH Use Does not consume alcohol Tobacco Use Start: Unknown End: Unknown Patient is a former smoker Stopped in 1979. Smoked for 6 years. 3ppd Smoking Status Reviewed: 10/07/21 Patient is a former smoker St opped in 1979. Smoked for 6 years. 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 Exercise Limitations Fatigue Exercise Limitations Shortness Of Breath Allergies and adverse reactions Description No Known Drug Allergies Medications Active Medications SIG Qnty Indications Ordering Provide r Date Latanoprost 0.005% Solution 1 drop both eyes every night at bedtime Rosie Wise MD Finasteride 5mg Tablets 1 by mouth every day Robert Lyman MD 10/06/[address] 1 by mouth every day Unknown 02/04/2021 Atorvastatin Calcium 40mg Tablets 1.5 tablets by mouth every night at bedtime 135tabs E78.00 Aakash Bryan MD 08/06/2020 Dorzolamide HCL 2% Solution 1 drop each eye twice a day Unknown 08/05/2020 Torsemide 10mg Tablets 1 by mouth every day at 5 pm 90tabs I10 Aakash Bryan MD 08/05/2020 I11.0 I50.32 Torsemide 20mg Tablets 1 by mouth every day 90tabs Aakash Bryan MD 06/06/2019 Carvedilol 6.25mg Tablets Take 1 Tablet Twice A Day 180tabs I10 Aakash Bryan MD 02/05/2019 I11.0 I50.32 Isosorbide Mononitrate ER 30mg Tablets ER 24HR Take 1 Tablet Daily 90tabs Aakash Bryan MD 02/05/2019 Irbesartan 150mg Tablets Take 1 Tablet Twice A Day 180tabs Aakash Bryan MD 04/20/2016 Clopidogrel Bisulfate 75mg Tablets Take 1 Tablet Daily 90tabs Aakash Bryan MD 08/16/2014 Lorazepam 1mg Tablets 1 by mouth as needed Ignacio Keys MD 02/10/2014 Nitrostat 0.4mg Tablets Sub 1 sl every 5min x3 as needed for chest pain 25tabs Aakash chang MD 09/11/2009 Multiple Vitamins Tablets 1 PO daily Unknown 09/18/2008 Humalog 100Unit/ML Solution pump Per SS as Directed Kee Hampton RN FRAME NAILER 8 Immunizations Description No Information Available Vital Signs Date Vital Result Comment 10/07/2021 3:59pm Weight 184.00 lb Home Weight 183lb Height 66 inches 5'6" BMI (Body Mass Index) 29.7 kg/m2 Heart Rate 76 /min BP Systolic Sitting 131 mmHg CBP large cuff, Ra BP Diastolic Sitting 63 mmHg CBP large cuff, Ra 02/05/2021 10:54am Weight 185.00 lb Home Weight 182lb home weight Height 66 inches 5'6" BMI (Body Mass Index) 29.9 kg/m2 Heart Rate 65 /min BP Systolic Sitting 169 mmHg CMP, adult cuff/Ra BP Diastolic Sitting 72 mmHg CMP, adult cuff/Ra Results Test Acquired Date Facility Test Result H/L Range Note CBC without Differential 09/15/2021 [facility] White Blood Count 7.4 Red Blood Count 4.92 Platelets 254 Hemoglobin 14.7 Hematocrit 44.1 Renal Profile 09/15/2021 [facility] Glucose 158 Blood Urea Nitrogen 25.8 Creatinine 1.3 GFR (Calculated) 56 Sodium 142.5 Potassium 4.86 Chloride 109 Carbon Dioxide 29.7 Calcium 9.2 Phosphorus 2.7 Albumin 3.9 Lipid Profile/Cardiac Risk Pro 09/09/2021 [facility] Triglycerides 83 Cholesterol 152 HDL 53 LDL Cholesterol 82 Chol/HDL Ratio 2.867 Procedures Date Code Description Status 10/07/2021 75114 Office/Outpatient Established Mo d MDM 30-39 Min Completed 10/07/2021 68068 Arterial Pressure Wa veform Analysis For Assessment Of Central Art Completed 10/07/2021 39284 ECG 12-Lead Completed Medical Devices Description No Information Available Encounters Type Date Location Provider Dx Diagnosis Office Visit 10/07/2021 3:00p Main Office Aakash Bryan MD I25.1 18 Athscl heart disease of [place] cor art w oth ang pctrs I25.2 Old myocardial infarction Z95.5 Presence of coronary angiopl asty implant and graft I50.32 Chronic diastolic (congestiv e) heart failure I11.0 Hypertensive heart disease w ith heart failure I10 Essential (primary) hyperten landon R60.0 Localized edema I45.10 Unspecified right bundle-bra nch block R94.31 Abnormal electrocardiogram [ ECG] [EKG] E78.00 Pure hypercholesterolemia, u nspecified E66.3 Overweight Z71.3 Dietary counseling and surve illance Assessments Date Code Description Provider 10/07/2021 I25.118 Atherosclerotic heart disease of [place] coronary artery with Aakash Bryan MD 10/07/2021 I25.2 Old myocardial infarction Aakash Bryan MD 10/07/2021 Z95.5 Presence of coronary angioplasty implant and graft Aakash Bryan MD 10/07/2021 I50.32 Chronic diastolic (congestive) h eart failure Aakash Bryan MD 10/07/2021 I11.0 Hypertensive heart disease with heart failure Aakash Bryan MD 10/07/2021 I10 Essential (primary) hypertension Aakash Bryan MD 10/07/2021 R60.0 Localized edema Aakash Bryan MD 10/07/2021 I45.10 Unspecified right bundle-branch block Aakash Bryan MD 10/07/2021 R94.31 Abnormal electrocardiogram [ECG] [EKG] Aakash Bryan MD 10/07/2021 E78.00 Pure hypercholesterolemia, unspe cified Aakash Bryan MD 10/07/2021 E66.3 Overweight Aakash Bryan MD 10/07/2021 Z71.3 Dietary counseling and surveilla nce Aakash Bryan MD Plan of Treatment Future Appointment(s):* 04/21/2022 2:00 pm - Aakash Bryan MD at Main Office 10/07/2021 - Aakash Bryan MD* I25.118 Atherosclerotic heart disease of [place] coronary artery with* Recommendations:* Continue medical therapy (aspirin, atorvastatin, carvedilol, isosorbide mononitrate ER, irbesartan, clopidogrel, Nitrostat). * I25.2 Old myocardial infarction * Z95.5 Presence of coronary angioplasty implant and graft * I50.32 Chronic diastolic (congestive) heart failure* Recommendations:* Continue torsemide, carvedilol, isosorbide mononitrate, irbesartan at the current dosages. * I11.0 Hypertensive heart disease with heart failure * I10 Essential (primary) hypertension* New Orders:* Central Aortic Pulse Wave Analysis, Scheduled: 10/07/21 * Recommendations:* Continue irbesartan, carvedilol, torsemide, isosorbide mononitrate ER at the current dosages. * R60.0 Localized edema* Recommendations:* Continue torsemide at the current dosage. * I45.10 Unspecified right bundle-branch block * R94.31 Abnormal electrocardiogram [ECG] [EKG] * E78.00 Pure hypercholesterolemia, unspecified* Recommendations:* Continue atorvastatin 60 mg/d. Low-fat, whole-food, plant-based diet was encouraged. * E66.3 Overweight* Recommendations:* Nutrition advice as above. * Z71.3 Dietary counseling and surveillance * All * Follow up:* Follow-up [place] [address] Bryan. Functional Status Functional Condition Comment Date Status Independent with all ADL's Activ e Mental Status Description No Information Available Referrals Description No Information Available
--- OUTSIDE RECORDS SUMMARY | 2021-10-18 14:13 | CCD | Continuity of Care Document ---
Author Author Aman BRYAN MD Organization Unknown Address [address] [place] [address], [place] [address] Phone [phone] Care Team Providers Care Hotel Clerk Name Role Phone [place], Ki HARMAN AUTM [phone] Marv Villaseñor MD AUTM [phone] Juancarlos Ford MD AUTM [phone] Robert Lyman MD AUTM [phone] Rosie Wise MD AUTM [phone] Problems Active Problems Provider Date Coronary arteriosclerosis [...] MD Onset: 5 Atherosclerotic heart disease of [place] coronary artery with other forms of angina [...] Walks sporadically Exercise Type/Frequency 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 Exercise Limitations Fatigue [...] Per SS as Directed Kee Hampton RN SYSTEM SALES CONSULTANT 8 Immunizations Description No Information Available Vital [...] 2.867 Procedures Date Code Description Status 10/07/2021 07834 Office/Outpatient Established Mo d MDM 30-39 Min Completed 10/07/2021 52539 Arterial Pressure Wa veform Analysis For Assessment Of Central Art Completed 10/07/2021 13657 ECG 12-Lead Completed 04/10/2021 72302 Office/Outpatient Established Lo w MDM 20-29 Min Completed Medical Devices Description No Information Available Encounters Type Date Location Provider Dx Diagnosis Office Visit 10/07/2021 3:00p Main Office Aakash Bryan MD I25.1 18 Athscl heart disease of [place] cor art w oth ang pctrs I25.2 [...] Overweight Z71.3 Dietary counseling and surve illance Office Visit 04/10/2021 12:30p Main Office Aakash Byran MD I25.1 18 Athscl heart disease of [place] cor art w oth ang pctrs R94.39 Abnormal result of other car diovascular function study Assessments Date Code Description Provider 10/07/2021 I25.118 Atherosclerotic heart disease of [place] coronary artery with Aakash Bryan MD 10/07/2021 [...] counseling and surveilla nce Aakash Bryan MD 04/10/2021 I25.118 Atherosclerotic heart disease of [place] coronary artery with Aakash Bryan MD 04/10/2021 R94.39 Abnormal result of other cardiov ascular function study Aakash Bryan MD Plan of Treatment Future Appointment(s):* 04/21/2022 2:00 pm - Aakash Bryan MD at Main Office 10/07/2021 - Aakash Bryan MD* I25.118 Atherosclerotic heart disease of [place] coronary artery with * I25.2 Old myocardial infarction * Z95.5 Presence of coronary angioplasty implant and graft * I50.32 Chronic diastolic (congestive) heart failure * I11.0 Hypertensive heart disease with heart failure * I10 Essential (primary) hypertension* New Orders:* Central Aortic Pulse Wave Analysis, Scheduled: 10/07/21 * R60.0 Localized edema * I45.10 Unspecified right bundle-branch block * R94.31 Abnormal electrocardiogram [ECG] [EKG] * E78.00 Pure hypercholesterolemia, unspecified * E66.3 Overweight * Z71.3 Dietary counseling and surveillance * All * Follow up:* Follow-up in [address] Bryan. Functional Status Functional Condition Comment Date Status Independent with all ADL's Activ e Mental Status Description No Information Available Referrals Description No Information Available
--- OUTSIDE RECORDS SUMMARY | 2021-10-18 14:13 | CCD | Continuity of Care Document ---
Author Author Aman MCGARRY PACheyenneC Organization Unknown Address [facility] [address] [place] [address] Phone [phone] Care Team Providers Care Acoustical Installer Name Role Phone Juancarlos Ford Unavailable Problems Active Problems Provider Date Adjustment disorder with depressed mood Harvinder Jacobson LCSW Onset: 07/03/2021 Family problems Harvinder Jacobson LCSW Onset: 07/03/2021 Anxiety state Harvinder Jacobson LCSW Onset: 07/03/2021 Social History Type Date Description Comments Sex Unknown Allergies and adverse reactions Active Allergies Criticality Reaction | Severity Comments Date NKDA Unable to assess criticality 08/04/2021 Seasonal Unable to assess criticality 08/04/2021 NKFA Unable to assess criticality 08/04/2021 Medications Active Medications SIG Qnty Indications Ordering Provide r Date Aspirin Ec 81mg Tablets DR Unknown Atorvastatin Calcium 40mg Tablets Unknown Carvedilol 6.25mg Tablets 1 by mouth twice a day Unknown Clopidogrel Bisulfate 75mg Tablets Unknown Dorzolamide HCL/Timolol Maleate 22.3-6.8mg/ml Solution Unknown Irbesartan 150mg Tablets 1 by mouth twice a day Unknown Humalog 100Unit/ML Solution Cartridge Unknown Isosorbide Mononitrate ER 30mg Tablets ER 24HR Unknown Lorazepam 1mg Tablets 1 tab by mouth three times a day prn 90tabs Unknown Multivitamin Adult Tablets Unknown Nitrostat 0.4mg Tablets Sub Unknown Finasteride 5mg Tablets 1 by mouth every day Unknown Torsemide 20mg Tablets 1 by mouth every morning and 5pm as needed Unknown Immunizations Description No Information Available Vital Signs Date Vital Result Comment 08/04/2021 1:03pm BP Systolic Sitting 138 mmHg BP Diastolic Sitting 64 mmHg Heart Rate 72 /min Body Temperature 98.1 F Oral Respiratory Rate 18 /min O2 % BldC Oximetry 98 % Weight 189.00 lb Weight 85.730 kg Height 66 inches 5'6" BMI (Body Mass Index) 30.5 kg/m2 BSA (Body Surface Area) 1.95 m2 Results Test Acquired Date Facility Test Result H/L Range Note Medwatch Toxassure Select 13 08/04/2021 [place] [facility] Summary Report (Summary) FINAL 1, 2 PDF . 1 {DIAGNOSIS: F43.21 F41.8 Z6 3.0~{MEDICATIONS/DECLARED: ASPIRIN LORAZEPAM CARVEDILOL~{PRESCRIPTIO 2 TOXASSURE SELECT 13 (MW) Test Result Flag Units Drug Present and Declared for Prescription Verification Lorazepam 127 EXPECTED ng/mg creat Source of lorazepam is a scheduled prescription medication. Test Result Flag Units Ref Range Creatinine 45 mg/dL >=20 Declared Medications: The flagging and interpretation on this report are based on the following declared medications. Unexpected results may arise from inaccuracies in the declared medications. Note: The testing scope of this panel includes these medications: Lorazepam Note: The testing scope of this panel does not include following reported medications: Aspirin Carvedilol For clinical consultation, please call . Procedures Date Code Description Status 09/10/2021 46859 Psychiatric Diag Eval W/Medical Service Completed 08/04/2021 81614 Preventive Counseling Indiv 60 M in Completed 07/03/2021 62986 Psychiatric Diagnostic Evaluatio n Completed Medical Devices Description No Information Available Encounters Description No Information Available Assessments Date Code Description Provider 09/10/2021 F41.8 Other specified anxiety disorder s Gigi Mcgarry PA-C 09/10/2021 F41.8 Other specified anxiety disorder s Paty Lopez GABRIELLE 09/10/2021 F43.21 Adjustment disorder with depress ed mood Gigi Mcgarry PA-C 09/10/2021 F43.21 Adjustment disorder with depress ed mood Paty Lopez [facility] 09/10/2021 Z63.0 Problems in relationship with sp ouse or partner ANA Ruano 08/07/2021 F41.8 Other specified anxiety disorder s ANA Ruano 08/07/2021 F43.21 Adjustment disorder with depress ed mood Paty Lopez LM 08/07/2021 Z63.0 Problems in relationship with sp ouse or partner ANA Ruano 08/04/2021 F41.8 Other specified anxiety disorder s Marisol Fritz, RN 08/04/2021 F43.21 Adjustment disorder with depress ed mood Marisol Fritz, JARROD 08/04/2021 Z63.0 Problems in relationship with sp ouse or partner Marisol Fritz, JARROD 07/24/2021 F43.21 Adjustment disorder with depress ed mood Paty Lopez, [facility] 07/24/2021 F41.8 Other specified anxiety disorder s Paty Lopez, [facility] 07/24/2021 Z63.0 Problems in relationship with sp ouse or partner Paty Lopez, [facility] 07/03/2021 F43.21 Adjustment disorder with depress ed mood Harvinder Jacobson [facility] 07/03/2021 F41.8 Other specified anxiety disorder s Harvinder Jacobson [facility] 07/03/2021 Z63.0 Problems in relationship with sp ouse or partner Harvinder Jacobson [facility] Plan of Treatment Future Appointment(s):* 10/20/2021 10:00 am - ANA Ruano at [facility] * 09/30/2021 9:00 am - ANA Ruano at [facility] Functional Status Description No Information Available Mental Status Description No Information Available Referrals Description No Information Available
--- OUTSIDE RECORDS SUMMARY | 2021-10-18 14:13 | CCD | Continuity of Care Document ---
Author Organization Unknown Address Unknown Phone Unavailable Care Team Providers Care Cath Lab Name Role Phone [place], Ki HARMAN AUTM [phone] Marv Villaseñor MD AUTM [phone] Juancarlos Ford MD AUTM [phone] Robert Lyman MD AUTM [phone] Problems Active Problems Provider Date Coronary arteriosclerosis [...] MD Onset: 5 Atherosclerotic heart disease of [place] coronary artery with other forms of angina pectoris Aakash Bryan MD Onset: 04/20/2016 Dietary management surveillance NASH Fuentes Onset: 02/10/2018 Overweight Aakash Bryan MD Onset: 06/07/2019 Abnormal results of cardiovascular function studies Aakahs Bryan MD Onset: 04/10/2021 Social History Type Date Description Comments Sex Unknown Tobacco Use Start: Unknown End: Unknown Former Cigarette Smo ker smoked cigarettes up to 3ppd x 10 years. Quit 1987 ETOH Use Does not consume alcohol Tobacco Use Start: Unknown End: Unknown Patient is a former smoker Stopped in 1979. Smoked for 6 years. 3ppd Smoking Status Reviewed: 02/05/21 Patient is a former smoker St opped in 1979. Smoked for 6 years. 3ppd Exercise Type/Frequency Walks sporadically Exercise Type/Frequency General Activities Daily Exercise Limitations Fatigue Exercise Limitations Shortness Of Breath Allergies and adverse reactions Description No Known Drug Allergies Medications Active Medications SIG Qnty Indications Ordering Provide r Date Aspirin 81mg Tablets DR 1 by mouth [...] Per SS as Directed Kee Hampton RN REPORTING LEAD 8 Immunizations Description No Information Available Vital Signs Date Vital Result Comment 02/05/2021 10:54am Weight 185.00 lb Home Weight 182lb home weight Height 66 inches 5'6" BMI (Body Mass Index) 29.9 kg/m2 Heart Rate 65 /min BP Systolic Sitting 169 mmHg CMP, adult cuff/Ra BP Diastolic Sitting 72 mmHg CMP, adult cuff/Ra 08/06/2020 8:27am Weight 184.00 lb Home Weight 180lb home weight Height 66 inches 5'6" BMI (Body Mass Index) 29.7 kg/m2 Heart Rate 73 /min BP Systolic Sitting 137 mmHg CBP, adult cuff/LA BP Diastolic Sitting 57 mmHg CBP, adult cuff/LA Results Test Acquired Date Facility Test Result H/L Range Note CBC without Differential 09/15/2021 [facility] White Blood Count 7.4 Red Blood Count 4.92 Platelets 254 Hemoglobin 14.7 Hematocrit 44.1 Renal Profile 09/15/2021 [facility] Glucose 158 Blood Urea Nitrogen 25.8 Creatinine 1.3 GFR (Calculated) 56 Sodium 142.5 Potassium 4.86 Chloride 109 Carbon Dioxide 29.7 Calcium 9.2 Phosphorus 2.7 Albumin 3.9 Procedures Date Code Description Status 04/10/2021 12384 Office/Outpatient Established Lo w MDM 20-29 Min Completed 04/07/2021 49821 Treadmill/Pharmacological Monito ring Completed 04/07/2021 96535 Myocardial Perfusion Spect Multi ple Completed Medical Devices Description No Information Available Encounters Type Date Location Provider Dx Diagnosis Office Visit 04/10/2021 12:30p Main Office Aakash Bryan MD I25.1 18 Athscl heart disease of [place] cor art w oth ang pctrs R94.39 Abnormal result of other car diovascular function study Assessments Date Code Description Provider 04/10/2021 I25.118 Atherosclerotic heart disease of [place] coronary artery with Aakash Bryan MD 04/10/2021 R94.39 Abnormal result of other cardiov ascular function study Aakash Bryan MD 04/07/2021 I25.118 Atherosclerotic heart disease of [place] coronary artery with Stress Nuclear/Reg Treadmill 04/07/2021 I25.2 Old myocardial infarction Stress Nuclear/Reg Treadmill 04/07/2021 Z95.5 Presence of coronary angioplasty implant and graft Stress Nuclear/Reg Treadmill 04/07/2021 I50.32 Chronic diastolic (congestive) h eart failure Stress Nuclear/Reg Treadmill 04/07/2021 R94.31 Abnormal electrocardiogram [ECG] [EKG] Stress Nuclear/Reg Treadmill Plan of Treatment Future Appointment(s):* 10/07/2021 3:00 pm - Aakash Bryan MD at Main Office Functional Status Functional Condition Comment Date Status Independent with all ADL's Activ e Mental Status Description No Information Available Referrals Refer to Reason for Referral Status Appt Date Aakash Bryan MD [facility] AUTH EMR-EXPIRES 09/27/21. [place] Created [address] [facility], [place] [id number] [phone]
--- OUTSIDE RECORDS SUMMARY | 2021-10-18 14:13 | CCD | Continuity of Care Document ---
Author Author Aman LOPEZ [facility] Organization Unknown Address [facility] [address] [place] [address] Phone [phone] Care Team Providers Care Electrical Control Assembler Name Role Phone Juancarlos Ford Unavailable Problems [...] Range Note Medwatch Toxassure Select 13 08/04/2021 [place] sy[facility] Summary Report (Summary) FINAL 1, 2 [...] . Procedures Date Code Description Status 09/10/2021 56525 Psychiatric Diag Eval W/Medical Service Completed 08/04/2021 64481 Preventive Counseling Indiv 60 M in Completed 07/03/2021 16344 Psychiatric Diagnostic Evaluatio n Completed Medical Devices Description No Information Available Encounters Description No Information Available Assessments Date Code Description Provider 09/10/2021 F41.8 Other specified anxiety disorder s Gigi Mcgarry PA-C 09/10/2021 F41.8 Other specified anxiety disorder s Paty Lopez GABRIELLE 09/10/2021 F43.21 Adjustment disorder with depress ed mood Gigi Mcgarry PA-C 09/10/2021 F43.21 Adjustment disorder with depress ed mood Paty Lopez [facility] 09/10/2021 Z63.0 Problems in relationship with sp ouse or partner ANA Ruano 08/07/2021 F41.8 Other specified anxiety disorder s ANA Ruano 08/07/2021 F43.21 Adjustment disorder with depress ed mood Paty Lopez LM 08/07/2021 Z63.0 Problems in relationship with sp ouse or partner Paty Lopez [facility] 08/04/2021 F41.8 Other specified anxiety disorder s Marisol Fritz, RN 08/04/2021 F43.21 Adjustment disorder with depress ed mood Marisol Fritz RN 08/04/2021 Z63.0 Problems in relationship with sp ouse or partner Marisol Fritz, JARROD 07/24/2021 F43.21 Adjustment disorder with depress ed mood Paty Lopez [facility] 07/24/2021 F41.8 Other specified anxiety disorder s Paty Lopez [facility] 07/24/2021 Z63.0 Problems in relationship with sp ouse or partner Paty Lopez [facility] 07/03/2021 F43.21 Adjustment disorder with depress ed mood Harvinder Jacobson [facility] 07/03/2021 F41.8 Other specified anxiety disorder s Harvinder Jacobson [facility] 07/03/2021 Z63.0 Problems in relationship with sp ouse or partner Harvinder Jacobson [employer]ING [employer] Plan of Treatment Future Appointment(s):* 12/23/2021 10:00 am - ANA Ruano at [facility] Functional Status Description No Information Available Mental Status Description No Information Available Referrals Description No Information Available
--- OUTSIDE RECORDS SUMMARY | 2021-10-18 14:14 | CCD | Continuity of Care Document ---
Author Author Aman FORD M.D. Organization Unknown Address 3 [facility] 3 [place] [address] Phone [phone] Problems Active Problems Provider Date Essential hypertension Juancarlos Ford M.D. Onset: 2018 Type 1 diabetes mellitus Juancarlos Ford M.D. Onset: 05/2019 Coronary atherosclerosis Juancarlos Ford M.D. Onset: 05/2019 Hyperlipidemia Juancarlos Ford M.D. Onset: 9 Social History Type Date Description Comments Sex Unknown Tobacco Use Start: Unknown End: Unknown Patient is a former smoker Allergies and adverse reactions Description No Known Drug Allergies Medications Active Medications SIG Qnty Indications Ordering Provide r Date Pfizer-BiontCase Rover Covid-19 Vaccine 30mcg/0.3ML Suspension both & booster 08/06/21 Juancarlos Ford M.D. 08/10/2021 Glucagon Emergency 1mg Kit as directed 1units Juancarlos Ford M.D. 09/01/2020 Torsemide 10mg Tablets 1 by mouth everyday @ 5PM Juancarlos Ford M.D. 08/11/20 20 Freestyle Lis 14 Day/[place]/Flash Li toring System Device test blood sugars daily dx: e11.9 1unJuancarlos Cruz M.D. 08/13/2019 Humalog 100Unit/ML Solution sliding scale insulin pump (mdd 100 units) 9Bottles E10.8 Juancarlos Ford M.D. Finasteride 5mg Tablets 1 by mouth every day Unknown Aspirin Ec 81mg Tablets DR 1 by mouth every day OTC Unknown Dorzolamide Hydrochloride/Timolol Maleat e PF 2-0.5% Solution 1 drop ou bid Unknown 0 Multivitamin Tablets 1 by mouth every day OTC Unknown Carvedilol 6.25mg Tablets take one tablet by mouth twice a day Unknown Freestyle Lis 14 Day/Sensor/Flash Li toring System Misc test blood sugars twice a day and as needed dx: e11.9 3units E10.8 Juancarlos Ford M.D. Lorazepam 1mg Tablets 1 tab by mouth three times a day as needed [id number] 90tabs Juancarlos Ford M.D. Nitrostat 0.4mg Tablets Sub 1 sl every 5 min for chest pain. may take up to 3 doses at which point also seek medical attention. Unknown Atorvastatin Calcium 40mg Tablets 1 and 1/2 tabs by mouth every day (60MG) Unknown Torsemide 20mg Tablets 1 by mouth every morning Unknown Plavix 75mg Tablets 1 by mouth every day Unknown Isosorbide Mononitrate ER 30mg Tablets ER 24HR 1 by mouth every day Unknown 000 Irbesartan 150mg Tablets 1 by mouth bid Aakash Bryan M.D. History Medications Amoxicillin 875mg Tablets 1 tab by mouth twice a day for 10 days 20taJuancarlos Mccormack M.D. 05/20/2021 - 08/10/2021 Zithromax Z-Jozef 250mg Tablets 2 tab by mouth today and then 1 tab by mouth daily for 4 days 1pJuancarlos Gama M.D. 05/12/2021 - 08/10/2021 Immunizations CPT Code Status Date Vaccine Lot # [id number] Given 08/21/2001 Influenza Virus Vac. Split Virus Individuals 3 Years And Above [id number] Refused 08/13/2019 Influenza Virus Vaccine, Quadrivalent, Slit Virus, Im Use 3Y & Up [id number] Vital Signs Date Vital Result Comment 08/10/2021 9:06am BP Systolic 140 mmHg BP Diastolic 82 mmHg Body Temperature 97.5 F Heart Rate 68 /min Respiratory Rate 16 /min Height 66 inches 5'6" Weight 190.00 lb [place] Body Weight 142 lb BMI (Body Mass Index) 30.7 kg/m2 O2 % BldC Oximetry 98 % 05/12/2021 2:25pm BP Systolic 128 mmHg BP Diastolic 68 mmHg Body Temperature 98.3 F Heart Rate 78 /min Respiratory Rate 18 /min Height 66 inches 5'6" Weight 187.00 lb [place] Body Weight 142 lb BMI (Body Mass Index) 30.2 kg/m2 O2 % BldC Oximetry 97 % Results Test Acquired Date Facility Test Result H/L Range Note Complete Blood Count 05/16/2021 [facility] ( Interface) [phone] White Blood Count 9.5 10 Normal 4.0-10.0 Red Blood Count 4.98 10 Normal 4.30-6.10 Hemoglobin 14.7 g/dL Normal 13.5-17.5 Hematocrit 43.5 % Normal 42.0-52.0 Mean Corpuscular Volume 87.3 fl Normal 80.0-96.0 Mean Corpuscular Hemoglobin 29.5 pg Normal 27.0-33.0 Mean Corpuscular HGB Conc 33.8 g/dL Normal 32.0-36.5 Red Cell Distribution Width 12.2 % Normal 11.5-14.5 Platelet Count, Automated 241 10 Normal 150-450 Nucleated Red Blood Cell % 0.0 % Normal 0-0 Hemoglobin A1c 05/16/2021 [facility] (I nterface) [phone] Hemoglobin A1c 8.8 % Normal 1 Estimated Average Glucose 206 mg/dL High 60-110 Comprehensive Metabolic Profil 05/16/2021 [facility] (Interface) [phone] Glucose, Fasting 132 mg/dL High 70-100 Blood Urea Nitrogen 33 mg/dL High 7-18 Creatinine For GFR 1.43 mg/dL High 0.70-1.30 Glomerular Filtration Rate 53.0 Normal >49 2 Sodium Level 145 mEq/L Normal 136-145 Potassium Serum 4.6 mEq/L Normal 3.5-5.1 Chloride Level 109 mEq/L High 98-107 Carbon Dioxide Level 28 mEq/L Normal 21-32 Anion Gap 8 mEq/L Normal 8-16 Calcium Level 9.1 mg/dL Normal 8.8-10.2 Ast/Sgot 26 U/L Normal 7-37 Alt/SGPT 48 U/L Normal 12-78 Alkaline Phosphatase 137 U/L High 45-117 Bilirubin,Total 0.5 mg/dL Normal 0.2-1.0 Total Protein 6.9 GM/DL Normal 6.4-8.2 Albumin 3.4 GM/DL Normal 3.2-5.2 Albumin/Globulin Ratio 1.0 Normal Lipid Panel 05/16/2021 [facility] (I [facility]terface) [phone] Triglycerides Level 130 mg/dL Normal <150 Cholesterol Level 137 mg/dL Normal <200 HDL Cholesterol 41 mg/dL Normal >40 LDL Cholesterol 70 mg/dL Normal <100 Non-HDL-C 96 mg/dL Normal Cholesterol Risk Ratio 3.341 Normal <5 Lyme Disease SCRN With Confirm 05/16/2021 [facility] (Interface) [phone] Lyme Disease IgG/IgM Antibodie <0.91 ISR Normal 0 .00-0.90 3 Lyme Disease IgM Ab Quantitati <0.80 index Normal 0.00-0.79 4 1 REFERENCE RANGES: <=5.6% NORMAL 5.7-6.4% SUGGESTS IMPAIRED GLUCOSE META BOLISM/PREDIABETIC >= 6.5% ABNORMAL 2 Units are mL/min/1.73 m2 Chronic Kidney Disease Staging per NKF: Stage I & II GFR >=60 Normal to Mildly Decreased Stage III GFR 30-59 Moderately Decreased Stage IV GFR 15-29 Severely Decreased Stage V GFR <15 Very Little GFR Left ESRD GFR <15 on NETWORK ADMIN 3 Negative <0.91 Equivocal 0.91 - 1.09 Positive >1.09 4 Negative <0.80 Equivocal 0.80 - 1.19 Positive >1.19 . IgM levels may peak at 3-6 weeks post infection, then gradually decline. Performed at: RN - [facility] [address] [id number] Java Designer: Tasha Zambrano MD, Phone: [phone] Procedures Date Code Description Status 08/10/2021 03763 Office/Outpatient Established Mo d MDM 30-39 Min Completed 05/12/2021 46386 Office/Outpatient Established Mo d MDM 30-39 Min Completed Medical Devices Description No Information Available Encounters Type Date Location Provider Dx Diagnosis Office Visit 08/10/2021 9:15a [place] [facility] Juancarlos Ford M. D. E78.5 Hyperlipidemia, unspecified E10.8 Type 1 diabetes mellitus wit h unspecified complications I25.10 Athscl heart disease of [place] coronary artery w/o ang pctrs I10 Essential (primary) hyperten [place] Office Visit 05/12/2021 2:30p [place] [facility] Juancarlos Ford M. D. E78.5 Hyperlipidemia, unspecified E10.8 Type 1 diabetes mellitus [facility] unspecified complications I25.10 Athscl heart disease of [place]idi [place] coronary artery w/o ang pctrs I10 Essential (primary) hyperten landon S80.861A Insect bite (nonvenomous), r ight lower leg, init encntr J06.9 Acute upper respiratory infe ction, unspecified Assessments Date Code Description Provider 08/10/2021 E78.5 Hyperlipidemia, unspecified [facility] Juancarlos crow M.D. 08/10/2021 E10.8 Type 1 diabetes mellitus with un specified complications Juancarlos Ford M.D. 08/10/2021 I25.10 Atherosclerotic hear t disease of [place] coronary artery without angina pectoris Juancarlos Ford M.D. 08/10/2021 I10 Essential (primary) hypertension Juancarlos Ford M.D. 05/12/2021 E78.5 Hyperlipidemia, unspecified [facility] Juancarlos crow M.D. 05/12/2021 E10.8 Type 1 diabetes mellitus with un specified complications Juancarlos Ford M.D. 05/12/2021 I25.10 Atherosclerotic hear t disease of [place] coronary artery without angina pectoris Juancarlos Ford M.D. 05/12/2021 I10 Essential (primary) hypertension Juancarlos Ford M.D. 05/12/2021 S80.861A Insect bite (nonveno mous), right lower leg, initial encounter Juancarlos Ford M.D. 05/12/2021 J06.9 Acute upper respiratory infectio n, unspecified Juancarlos Ford M.D. Plan of Treatment No Information Available Functional Status Description No Information Available Mental Status Description No Information Available Referrals Description No Information Available
--- OUTSIDE RECORDS SUMMARY | 2021-10-18 14:14 | CCD | Continuity of Care Document ---
Author Author Aman FORD M.D. Organization Unknown Address 3 [facility] 3 [place] [address] Phone [phone] Problems Active Problems Provider Date Essential hypertension [...] SIG Qnty Indications Ordering Provide r Date Pfizer-BiontJuvaris BioTherapeutics Covid-19 Vaccine 30mcg/0.3ML Suspension both & booster 08/06/21 Juancarlos Ford M.D. 08/10/2021 Glucagon Emergency 1mg Kit as directed 1units Juancarlos Ford M.D. 09/01/2020 Torsemide 10mg Tablets 1 by mouth everyday @ 5PM Juancarlos Ford M.D. 08/11/20 20 Freestyle Lis 14 Day/[place]/Flash Li toring System Device test blood sugars daily dx: e11.9 1unJuancarlos rCuz M.D. 08/13/2019 Humalog 100Unit/ML Solution sliding scale [...] a day Unknown Freestyle Lis 14 Day/Sensor/Flash Il toring System Misc test blood sugars twice a day and as needed dx: e11.9 3units E10.8 Juancarlos Ford M.D. Lorazepam 1mg Tablets 1 tab by mouth three times a day as needed [id number] 90tabs Juancarlos Ford M.D. Nitrostat 0.4mg Tablets [...] CPT Code Status Date Vaccine Lot # [id number] Given 08/21/2001 Influenza Virus Vac. Split Virus Individuals 3 Years And Above 58[address] Refused 08/13/2019 Influenza Virus Vaccine, Quadrivalent, Slit Virus, Im Use 3Y & Up [id number] Vital Signs Date Vital Result Comment 08/10/2021 9:06am BP Systolic 140 mmHg BP Diastolic 82 mmHg Body Temperature 97.5 F Heart Rate 68 /min Respiratory Rate 16 /min Height 66 inches 5'6" Weight 190.00 lb [place] Body Weight 142 lb BMI (Body Mass Index) 30.7 kg/m2 O2 % BldC Oximetry 98 % 05/12/2021 2:25pm BP Systolic 128 mmHg BP Diastolic 68 mmHg Body Temperature 98.3 F Heart Rate 78 /min Respiratory Rate 18 /min Height 66 inches 5'6" Weight 187.00 lb [place] Body Weight 142 lb BMI (Body Mass Index) 30.2 kg/m2 O2 % BldC Oximetry 97 % Results Test Acquired Date Facility Test Result H/L Range Note Complete Blood Count 05/16/2021 [facility] ( Interface) [phone] White Blood Count 9.5 10 Normal 4.0-10.0 [...] 0.0 % Normal 0-0 Hemoglobin A1c 05/16/2021 [facility] (I nterface) [phone] Hemoglobin A1c 8.8 % Normal 1 Estimated Average Glucose 206 mg/dL High 60-110 Comprehensive Metabolic Profil 05/16/2021 [facility] (Interface) [phone] Glucose, Fasting 132 mg/dL High 70-100 Blood [...] Albumin/Globulin Ratio 1.0 Normal Lipid Panel 05/16/2021 [facility] (I nterface) [phone] Triglycerides Level 130 mg/dL Normal <150 Cholesterol Level 137 mg/dL Normal <200 HDL Cholesterol 41 mg/dL Normal >40 LDL Cholesterol 70 mg/dL Normal <100 Non-HDL-C 96 mg/dL Normal Cholesterol Risk Ratio 3.341 Normal <5 Lyme Disease SCRN With Confirm 05/16/2021 [facility] (Interface) [phone] Lyme Disease IgG/IgM Antibodie <0.91 ISR Normal [...] Little GFR Left ESRD GFR <15 on MANAGER TELEMARKETING 3 Negative <0.91 Equivocal 0.91 - 1.09 Positive >1.09 4 Negative <0.80 Equivocal 0.80 - 1.19 Positive >1.19 . IgM levels may peak at 3-6 weeks post infection, then gradually decline. Performed at: RN - [facility] [address] [id number] [employer] Supervisor: Tasha Zambrano MD, Phone: [phone] Procedures Date Code Description Status 08/10/2021 83875 Office/Outpatient Established Mo d MDM 30-39 Min Completed 05/12/2021 59337 Office/Outpatient Established Mo d MDM 30-39 Min Completed Medical Devices Description No Information Available Encounters Type Date Location Provider Dx Diagnosis Office Visit 08/10/2021 9:15a [place] [facility] Juancarlos Ford M. D. E78.5 Hyperlipidemia, unspecified E10.8 Type 1 diabetes mellitus wit h unspecified complications I25.10 Athscl heart disease of heidi ve coronary artery w/o ang pctrs I10 Essential (primary) hyperten [place] Office Visit 05/12/2021 2:30p [place] [facility] Juancarlos Ford M. D. E78.5 Hyperlipidemia, unspecified E10.8 Type 1 diabetes mellitus [facility] unspecified complications I25.10 Athscl heart disease of [place] coronary artery w/o ang pctrs I10 Essential (primary) hyperten landon S80.861A Insect bite (nonvenomous), r ight lower leg, init encntr J06.9 Acute upper respiratory infe ction, unspecified Assessments Date Code Description Provider 08/10/2021 E78.5 Hyperlipidemia, unspecified [facility] Juancarlos crow M.D. 08/10/2021 E10.8 Type 1 diabetes mellitus with un specified complications Juancarlos Ford M.D. 08/10/2021 I25.10 Atherosclerotic hear t disease of [place] coronary artery without angina pectoris Juancarlos Ford M.D. 08/10/2021 I10 Essential (primary) hypertension Juancarlos Ford M.D. 05/12/2021 E78.5 Hyperlipidemia, unspecified [facility] Juancarlos crow M.D. 05/12/2021 E10.8 Type 1 diabetes mellitus with un specified complications Juancarlos Ford M.D. 05/12/2021 I25.10 Atherosclerotic hear t disease of [place] coronary artery without angina pectoris Juancarlos Ford [...]
--- OUTSIDE RECORDS SUMMARY | 2021-10-18 14:14 | CCD | Continuity of Care Document ---
Author Author Aman MCGARRY PA-C Organization Unknown Address [facility] [address] [place] [address] Phone [phone] Care Team Providers Care Monogram Maker Name Role Phone Juancarlos Ford Unavailable Problems Active Problems Provider Date Adjustment disorder with depressed mood Harvinder Jacobson LCSW Onset: 07/03/2021 Family problems Harvinder Jacobson, INFORMATION ASSURANCE OFFICER Onset: 07/03/2021 Anxiety state Harvinder Jacobson INFORMATION ASSURANCE OFFICER Onset: 07/03/2021 Social History Type Date Description Comments Sex Unknown Allergies, Adverse Reactions, Alerts Active Allergies Criticality Reaction | Severity Comments [...] call . Procedures Date Code Description Status 08/04/2021 90568 Preventive Counseling Indiv 62 M in Completed 07/03/2021 61333 Psychiatric Diagnostic Evaluatio n Completed Medical Devices Description No Information Available Encounters Description No Information Available Assessments Date Code Description Provider 08/07/2021 F41.8 Other specified anxiety disorder s Paty Lopez [facility] 08/07/2021 F43.21 Adjustment disorder with depress ed mood Paty Lopez [facility] 08/07/2021 Z63.0 Problems in relationship with sp ouse or partner Paty Lopez [facility] 08/04/2021 F41.8 Other specified anxiety disorder s Marisol Fritz RN 08/04/2021 F43.21 Adjustment disorder with depress ed mood Marisol Fritz RN 08/04/2021 Z63.0 Problems in relationship with sp ouse or partner Marisol Fritz RN 07/24/2021 F43.21 Adjustment disorder with depress ed mood Paty Lopez [facility] 07/24/2021 F41.8 Other specified anxiety disorder s Paty Lopez [facility] 07/24/2021 Z63.0 Problems in relationship with sp ouse or partner Paty Lopez [facility] 07/03/2021 F43.21 Adjustment disorder with depress ed mood Harvinder Jacobson, [facility] 07/03/2021 F41.8 Other specified anxiety disorder s Harvinder Jacobson [facility] 07/03/2021 Z63.0 Problems in relationship with sp ouse or partner Harvinder Jacobson LCSW Plan of Treatment Future Appointment(s):* 09/10/2021 10:00 am - ANA Ruano at [facility] * 09/10/2021 11:20 am - Gigi Mcgarry PA-C at [facility] Functional Status Description No Information Available Mental Status Description No Information Available Referrals Description No Information Available
--- OUTSIDE RECORDS SUMMARY | 2021-10-18 14:14 | CCD | Continuity of Care Document ---
Author Author Eriberto FRITZ RN Organization Unknown Address [address] [place] [address] Phone [phone] Care Team Providers Care Vocational Rehabilitation Specialist Name Role Phone Logan Juancarlos Reyesnicholas [place] Unavailable Problems Active Problems Provider Date Adjustment [...] every morning and 5pm as needed Unknown 00/00/ 0000 Immunizations Description No Information Available Vital Signs [...] BSA (Body Surface Area) 1.95 m2 Results Description No Information Available Procedures Date Code Description Status 08/04/2021 28790 Preventive Counseling Indiv 62 M in Completed 07/03/2021 20381 Psychiatric Diagnostic Evaluatio n Completed Medical Devices Description No Information Available Encounters Type Date Location Provider Dx Diagnosis Office Visit 08/04/2021 1:00p [facility] Marisol Fritz RN F41.8 Other specified anxiety disorders F43.21 Adjustment disorder with dep ressed mood Z63.0 Problems in relationship wit h spouse or partner Assessments Date Code Description Provider 08/04/2021 F41.8 Other specified anxiety disorder s Marisol Fritz RN 08/04/2021 F43.21 Adjustment disorder with depress ed mood Marisol Fritz RN 08/04/2021 Z63.0 Problems in relationship with sp ouse or partner Marisol Fritz RN 07/24/2021 F43.21 Adjustment disorder with depress ed mood Paty Lopez [facility] 07/24/2021 F41.8 Other specified anxiety disorder s Paty Lopez LM 07/24/2021 Z63.0 Problems in relationship with sp ouse or partner Paty Lopez [facility] 07/03/2021 F43.21 Adjustment disorder with depress ed mood JOSEPH GilbertW 07/03/2021 F41.8 Other specified anxiety disorder s Harvinder Jacobson LCSW 07/03/2021 Z63.0 Problems in relationship with sp ouse or partner Harvinder Jacobson LCSW Plan of Treatment Future Appointment(s):* 09/10/2021 11:20 am - Gigi Mcgarry PA-C at [facility] * 08/07/2021 11:00 am - ANA Ruano at [facility] Functional Status Description No Information Available Mental Status Description No Information Available Referrals Description No Information Available
--- OUTSIDE RECORDS SUMMARY | 2021-10-18 14:14 | CCD | Continuity of Care Document ---
Author Author Aman LOPEZ [place] Organization Unknown Address [facility] 3 [place] [address] Phone [phone] Care Team Providers Care Case Finishing Machine Adjuster Name Role Phone Juancarlos Ford Unavailable Problems Active Problems Provider Date Adjustment disorder with depressed mood Harvinder Jacobson LCSW Onset: 07/03/2021 Family problems Harvinder Jacobson, STENCIL PRINTER Onset: 07/03/2021 Anxiety state Harvinder Jacobson STENCIL PRINTER Onset: 07/03/2021 Social History Type Date Description [...] Available Procedures Date Code Description Status 08/04/2021 38016 Preventive Counseling Indiv 62 M in Completed 07/03/2021 04206 Psychiatric Diagnostic Evaluatio n Completed Medical Devices Description No Information Available Encounters Description No Information Available Assessments Date Code Description Provider 08/07/2021 F41.8 Other specified anxiety disorder s Paty Lopez [place] 08/07/2021 F43.21 Adjustment disorder with depress ed mood Paty Lopez [place] 08/07/2021 Z63.0 Problems in relationship with sp ouse or partner Paty Lopez [place] 08/04/2021 F41.8 Other specified anxiety disorder s Marisol Fritz, RN 08/04/2021 F43.21 Adjustment disorder with depress ed mood Mraisol Fritz, RN 08/04/2021 Z63.0 Problems in relationship with sp ouse or partner Marisol Fritz, JARROD 07/24/2021 F43.21 Adjustment disorder with depress ed mood Paty Lopez [place] 07/24/2021 F41.8 Other specified anxiety disorder s Paty Lopez [place] 07/24/2021 Z63.0 Problems in relationship with sp ouse or partner Paty Lopez [place] 07/03/2021 F43.21 Adjustment disorder with depress ed mood Harvinder Jacobson [facility] 07/03/2021 F41.8 Other specified anxiety disorder s Harvinder Jacobson [facility] 07/03/2021 Z63.0 Problems in relationship with sp ouse or partner Harvinder Jacobson LCSW Plan of Treatment Future Appointment(s):* 09/10/2021 10:00 am - ANA Ruano at [facility] * 09/10/2021 11:20 am - Gigi Mcgarry PA-C at [facility] Functional Status Description No Information Available Mental Status Description No Information Available Referrals Description No Information Available
--- OUTSIDE RECORDS SUMMARY | 2021-10-18 14:14 | CCD | Continuity of Care Document ---
Author Author Eriberto REHMAN [facility] Organization Unknown Address [facility] [address] [place] [address] Phone [phone] Problems Active Problems Provider Date Adjustment disorder with depressed mood Harvinder Indira, [employer]'S LEATHER DRESS BELT MAKER Onset: 07/03/2021 Family problems Harvinder Jacobson, MEN'S LEATHER DRESS BELT MAKER Onset: 07/03/2021 Anxiety state Harvinderwhitney Jacobson, MEN'S LEATHER DRESS BELT MAKER Onset: 07/03/2021 Social History Type Date Description Comments Sex Unknown Allergies, Adverse Reactions, Alerts Description No Information Available Medications Description No Information Available Immunizations Description No Information Available Vital Signs Description No Information Available Results Description No Information Available Procedures Date Code Description Status 07/03/2021 24720 Psychiatric Diagnostic Evaluatio n Completed Medical Devices Description No Information Available Encounters Description No Information Available Assessments Date Code Description Provider 07/03/2021 F43.21 Adjustment disorder with depress ed mood Harvinder Jacobson, MEN'S LEATHER DRESS BELT MAKER 07/03/2021 F41.8 Other specified anxiety disorder s Harvinder Indira, MEN'S LEATHER DRESS BELT MAKER 07/03/2021 Z63.0 Problems in relationship with sp ouse or partner Harvinder Jacobson LCSW Plan of Treatment Future Appointment(s):* 08/07/2021 11:00 am - ANA Ruano at [facility] Functional Status Description No Information Available Mental Status Description No Information Available Referrals Description No Information Available
--- OUTSIDE RECORDS SUMMARY | 2021-10-18 14:14 | CCD | Continuity of Care Document ---
Author Author Eriberto FRITZ RN Organization Unknown Address [address] [place] [address] Phone [phone] Care Team Providers Care Mechanical Supervisor Name Role Phone Logan Juancarlos Reyesnicholas [place] [...] Available Procedures Date Code Description Status 08/04/2021 86362 Preventive Counseling Indiv 62 M in Completed 07/03/2021 53731 Psychiatric Diagnostic Evaluatio n Completed Medical Devices Description No Information Available Encounters Type Date Location Provider Dx Diagnosis Office Visit 08/04/2021 1:00p [facility] Marisol Fritz RN F41.8 Other specified [...] disorder with depress ed mood Paty Lopez [facility] 07/24/2021 F41.8 Other specified anxiety disorder s Paty Lopez LM 07/24/2021 Z63.0 Problems in relationship with sp ouse or partner Paty Lopez [facility] 07/03/2021 F43.21 Adjustment disorder with depress ed mood JOSEPH GilbertW 07/03/2021 F41.8 Other specified anxiety disorder s Harvinder Jacobson LCSW 07/03/2021 Z63.0 Problems in relationship with sp ouse or partner Harvinder Jacobson LCSW Plan of Treatment Future Appointment(s):* 09/10/2021 11:20 am - Gigi Mcgarry PA-C at [facility] * 08/07/2021 11:00 am - ANA Ruano at [facility] Functional Status Description No Information Available Mental Status Description No Information Available Referrals Description No Information Available
--- OUTSIDE RECORDS SUMMARY | 2021-10-18 14:14 | CCD | Continuity of Care Document ---
Author Author Aman FORD M.D. Organization Unknown Address [address] [facility] [address] [place] [address] Phone [phone] Problems Active Problems Provider Date Essential hypertension [...] SIG Qnty Indications Ordering Provide r Date Pfizer-BiontDujour App Covid-19 Vaccine 30mcg/0.3ML Suspension both & booster 08/06/21 Juancarlos Ford M.D. 08/10/2021 Glucagon Emergency 1mg Kit as directed 1units Juancarlos Ford M.D. 09/01/2020 Torsemide 10mg Tablets 1 by mouth everyday @ 5PM Juancarlos Ford M.D. 08/11/20 20 Freestyle Lis 14 Day/[place]/Flash Li toring System Device test blood sugars [...] mouth three times a day as needed [id number] 90tabs Juancarlos Ford M.D. Nitrostat 0.4mg Tablets [...] CPT Code Status Date Vaccine Lot # [id number] Given 08/21/2001 Influenza Virus Vac. Split Virus Individuals 3 Years And Above [id number] Refused 08/13/2019 Influenza Virus Vaccine, Quadrivalent, Slit Virus, Im Use 3Y & Up [id number] Vital Signs Date Vital Result Comment 08/10/2021 9:06am BP Systolic 140 mmHg BP Diastolic 82 mmHg Body Temperature 97.5 F Heart Rate 68 /min Respiratory Rate 16 /min Height 66 inches 5'6" Weight 190.00 lb [place] Body Weight 142 lb BMI (Body Mass Index) 30.7 kg/m2 O2 % BldC Oximetry 98 % 05/12/2021 2:25pm BP Systolic 128 mmHg BP Diastolic 68 mmHg Body Temperature 98.3 F Heart Rate 78 /min Respiratory Rate 18 /min Height 66 inches 5'6" Weight 187.00 lb [place] Body Weight 142 lb BMI (Body Mass Index) 30.2 kg/m2 O2 % BldC Oximetry 97 % Results Test Acquired Date Facility Test Result H/L Range Note Hemoglobin A1c 09/08/2021 [facility]) [phone] Hemoglobin A1c 8.7 % Normal 1 Estimated Average Glucose 203 mg/dL High 60-110 Comprehensive Metabolic Profil 09/08/2021 [facility] (Interface) [phone] Glucose, Fasting 52 mg/dL Low 70-100 Blood Urea Nitrogen 34 mg/dL High 7-18 Creatinine For GFR 1.39 mg/dL High 0.70-1.30 Glomerular Filtration Rate 54.8 Normal >49 2 Sodium Level 145 mEq/L Normal 136-145 Potassium Serum 4.3 mEq/L Normal 3.5-5.1 Chloride Level 114 mEq/L High 98-107 Carbon Dioxide Level 28 mEq/L Normal 21-32 Anion Gap 3 mEq/L Low 8-16 Calcium Level 9.6 mg/dL Normal 8.8-10.2 Ast/Sgot 25 U/L Normal 7-37 Alt/SGPT 48 U/L Normal 12-78 Alkaline Phosphatase 128 U/L High 45-117 Bilirubin,Total 0.4 mg/dL Normal 0.2-1.0 Total Protein 6.8 GM/DL Normal 6.4-8.2 Albumin 3.6 GM/DL Normal 3.2-5.2 Albumin/Globulin Ratio 1.1 Normal Lipid Panel 09/08/2021 [facility]) [phone] Triglycerides Level 83 mg/dL Normal <150 Cholesterol Level 152 mg/dL Normal <200 HDL Cholesterol 53 mg/dL Normal >40 LDL Cholesterol 82 mg/dL Normal <100 Non-HDL-C 99 mg/dL Normal Cholesterol Risk Ratio 2.867 Normal <5 Complete Blood Count 05/16/2021 [facility] ( Interface) [phone] White Blood Count 9.5 10 Normal 4.0-10.0 [...] 0.0 % Normal 0-0 Hemoglobin A1c 05/16/2021 [facility] ( [facility] [phone] Hemoglobin A1c 8.8 % Normal 3 Estimated Average Glucose 206 mg/dL High 60-110 Comprehensive Metabolic Profil 05/16/2021 [facility] (Interface) [phone] Glucose, Fasting 132 mg/dL High 70-100 Blood Urea Nitrogen 33 mg/dL High 7-18 Creatinine For GFR 1.43 mg/dL High 0.70-1.30 Glomerular Filtration Rate 53.0 Normal >49 4 Sodium Level 145 mEq/L Normal 136-145 Potassium [...] Albumin/Globulin Ratio 1.0 Normal Lipid Panel 05/16/2021 [facility] [phone] Triglycerides Level 130 mg/dL Normal <150 Cholesterol Level 137 mg/dL Normal <200 HDL Cholesterol 41 mg/dL Normal >40 LDL Cholesterol 70 mg/dL Normal <100 Non-HDL-C 96 mg/dL Normal Cholesterol Risk Ratio 3.341 Normal <5 Lyme Disease SCRN With Confirm 05/16/2021 [facility] (Interface) [phone] Lyme Disease IgG/IgM Antibodie <0.91 ISR Normal 0 .00-0.90 5 Lyme Disease IgM Ab Quantitati <0.80 index Normal 0.00-0.79 6 1 REFERENCE RANGES: <=5.6% NORMAL 5.7-6.4% SUGGESTS IMPAIRED GLUCOSE META BOLISM/PREDIABETIC >= 6.5% ABNORMAL 2 Units are mL/min/1.73 m2 Chronic Kidney Disease Staging per NKF: Stage I & II GFR >=60 Normal to Mildly Decreased Stage III GFR 30-59 Moderately Decreased Stage IV GFR 15-29 Severely Decreased Stage V GFR <15 Very Little GFR Left ESRD GFR <15 on MECHANICAL DOOR REPAIRER 3 REFERENCE RANGES: <=5.6% NORMAL 5.7-6.4% SUGGESTS IMPAIRED GLUCOSE META BOLISM/PREDIABETIC >= 6.5% ABNORMAL 4 Units are mL/min/1.73 m2 Chronic Kidney Disease Staging per NKF: Stage I & II GFR >=60 Normal to Mildly Decreased Stage III GFR 30-59 Moderately Decreased Stage IV GFR 15-29 Severely Decreased Stage V GFR <15 Very Little GFR Left ESRD GFR <15 on MECHANICAL DOOR REPAIRER 5 Negative <0.91 Equivocal 0.91 - 1.09 Positive >1.09 6 Negative <0.80 Equivocal 0.80 - 1.19 Positive >1.19 . IgM levels may peak at 3-6 weeks post infection, then gradually decline. Performed at: RN - [facility] [address] [id number] Waste Reclaimer: Tasha Zambrano MD, Phone: [phone] Procedures Date Code Description Status 08/10/2021 45241 Office/Outpatient Established Mo d MDM 30-39 Min Completed 05/12/2021 53612 Office/Outpatient Established Mo d MDM 30-39 Min Completed Medical Devices Description No Information Available Encounters Type Date Location Provider Dx Diagnosis Office Visit 08/10/2021 9:15a [place] [facility] Juancarlos Ford M. D. E78.5 Hyperlipidemia, unspecified E10.8 Type 1 diabetes mellitus wit h unspecified complications I25.10 [place] heart disease of [place] ve coronary artery w/o ang pctrs I10 Essential (primary) hyperten [place] Office Visit 05/12/2021 2:30p [place] [facility] Juancarlos Ford M. D. E78.5 Hyperlipidemia, unspecified E10.8 Type 1 diabetes mellitus wit h unspecified complications I25.10 Athscl heart disease of heidi ve coronary artery w/o ang pctrs I10 Essential (primary) hyperten landon S80.861A Insect bite (nonvenomous), r ight lower leg, init encntr J06.9 Acute upper respiratory infe ction, unspecified Assessments Date Code Description Provider 08/10/2021 E78.5 Hyperlipidemia, unspecified [facility] Juancarlos crow M.D. 08/10/2021 E10.8 Type 1 diabetes mellitus with un specified complications Juancarlos Ford M.D. 08/10/2021 I25.10 Atherosclerotic hear t disease of [place] coronary artery without angina pectoris Juancarlos Ford M.D. 08/10/2021 I10 Essential (primary) hypertension Juancarlos Ford M.D. 05/12/2021 E78.5 Hyperlipidemia, unspecified [facility] Juancarlos crow M.D. 05/12/2021 E10.8 Type 1 diabetes mellitus with un specified complications Juancarlos Ford M.D. 05/12/2021 I25.10 Atherosclerotic hear t disease of [place] coronary artery without angina pectoris Juancarlos Ford [...]
--- OUTSIDE RECORDS SUMMARY | 2021-10-18 14:14 | CCD | Continuity of Care Document ---
Author Author Aman LOPEZ [facility] Organization Unknown Address [facility] [address] [place] [address] Phone [phone] Care Team Providers Care Lodge Officer Name Role Phone Juancarlos Ford Unavailable Problems Active Problems Provider Date Adjustment disorder with depressed mood Harvinder Jacobson LCSW Onset: 07/03/2021 Family problems Harvinder Jacobson, HAND STONE POLISHER Onset: 07/03/2021 Anxiety state Harvinder Jacobson HAND STONE POLISHER Onset: 07/03/2021 Social History Type Date Description [...] . Procedures Date Code Description Status 08/04/2021 55936 Preventive Counseling Indiv 62 M in Completed 07/03/2021 36540 Psychiatric Diagnostic Evaluatio n Completed Medical Devices Description No Information Available Encounters Description No Information Available Assessments Date Code Description Provider 08/07/2021 F41.8 Other specified anxiety disorder s Paty Lopez [facility] 08/07/2021 F43.21 Adjustment disorder with depress ed mood Paty Lopez [facility] 08/07/2021 Z63.0 Problems in relationship with sp ouse or partner Paty Lopez [facility] 08/04/2021 F41.8 Other specified anxiety disorder s Marisol Fritz RN 08/04/2021 F43.21 Adjustment disorder with depress ed mood Marisol Fritz RN 08/04/2021 Z63.0 Problems in relationship with sp ouse or partner Marisol Fritz RN 07/24/2021 F43.21 Adjustment disorder with depress ed mood Paty Lopez [facility] 07/24/2021 F41.8 Other specified anxiety disorder s Paty Lopez [facility] 07/24/2021 Z63.0 Problems in relationship with sp ouse or partner Paty Lopez [facility] 07/03/2021 F43.21 Adjustment disorder with depress ed mood Harvinder Jacobson, [facility] 07/03/2021 F41.8 Other specified anxiety disorder s Harvinder Jacobson, [facility] 07/03/2021 Z63.0 Problems in relationship with sp ouse or partner Harvinder Jacobson LCSW Plan of Treatment Future Appointment(s):* 10/20/2021 10:00 am - ANA Ruano at [facility] * 09/30/2021 9:00 am - ANA Ruano at [facility] Functional Status Description No Information Available Mental Status Description No Information Available Referrals Description No Information Available
--- OUTSIDE RECORDS SUMMARY | 2021-10-18 14:14 | CCD | Continuity of Care Document ---
Author Author Aman LOPEZ [facility] Organization Unknown Address [facility] [address] [place] [address] Phone [phone] Care Team Providers Care Correctional Program Officer Name Role Phone Juancarlos Ford Unavailable Problems Active Problems Provider Date Adjustment disorder with depressed mood Harvinder Jacobson LCSW Onset: 07/03/2021 Family problems Harvinder Jacobson, JUMP ROLL OPERATOR Onset: 07/03/2021 Anxiety state Harvinder Jacobson JUMP ROLL OPERATOR Onset: 07/03/2021 Social History Type Date Description [...] Available Procedures Date Code Description Status 08/04/2021 01610 Preventive Counseling Indiv 62 M in Completed 07/03/2021 31583 Psychiatric Diagnostic Evaluatio n Completed Medical Devices Description No Information Available Encounters Description No Information Available Assessments Date Code Description Provider 08/07/2021 F41.8 Other specified anxiety disorder s Paty Lopez [facility] 08/07/2021 F43.21 Adjustment disorder with depress ed mood Paty Lopez [facility] 08/07/2021 Z63.0 Problems in relationship with sp ouse or partner Paty Lopez [facility] 08/04/2021 F41.8 Other specified anxiety disorder s Marisol Fritz, RN 08/04/2021 F43.21 Adjustment disorder with depress ed mood Marisol Fritz, RN 08/04/2021 Z63.0 Problems in relationship with sp ouse or partner Marisol Fritz, JARROD 07/24/2021 F43.21 Adjustment disorder with depress ed mood Paty Lopez [facility] 07/24/2021 F41.8 Other specified anxiety disorder s Paty Lopez [facility] 07/24/2021 Z63.0 Problems in relationship with sp ouse or partner Paty Lopez [facility] 07/03/2021 F43.21 Adjustment disorder with depress ed mood Harvinder Jacobson [facility] 07/03/2021 F41.8 Other specified anxiety disorder s Harvinder Jacobson [facility] 07/03/2021 Z63.0 Problems in relationship with sp ouse or partner Harvinder Jacobson LCSW Plan of Treatment Future Appointment(s):* 09/10/2021 10:00 am - ANA Ruano at [facility] * 09/10/2021 11:20 am - Gigi Mcgarry PA-C at [facility] Functional Status Description No Information Available Mental Status Description No Information Available Referrals Description No Information Available
--- OUTSIDE RECORDS SUMMARY | 2021-10-18 14:14 | CCD ---
Continuity of Care Document (CCD) Created on: 08/07/2021 Aman Corrales External Reference #: [id number] : [id number] Sex: Male Author Author Aman LOPEZ [facility] Organization Unknown Address [facility] [address] [place] [address] Phone [phone] Care Team Providers Care Enrollment Management Vice President Name Role Phone Juancarlos Ford Unavailable Problems Active Problems Provider Date Adjustment disorder with depressed mood Harvinder Jacobson LCSW Onset: 07/03/2021 Family problems Harvinder Jacobson, SOCIAL SECURITY BENEFITS INTERVIEWER Onset: 07/03/2021 Anxiety state Harvinder Jacobson SOCIAL SECURITY BENEFITS INTERVIEWER Onset: 07/03/2021 Social History Type Date Description [...] Available Procedures Date Code Description Status 08/04/2021 73388 Preventive Counseling Indiv 62 M in Completed 07/03/2021 10910 Psychiatric Diagnostic Evaluatio n Completed Medical Devices Description No Information Available Encounters Description No Information Available Assessments Date Code Description Provider 08/07/2021 F41.8 Other specified anxiety disorder s Paty Lopez [facility] 08/07/2021 F43.21 Adjustment disorder with depress ed mood Paty Lopez [facility] 08/07/2021 Z63.0 Problems in relationship with sp ouse or partner Paty Lopez [facility] 08/04/2021 F41.8 Other specified anxiety disorder s Marisol Fritz, RN 08/04/2021 F43.21 Adjustment disorder with depress ed mood Marisol Fritz, RN 08/04/2021 Z63.0 Problems in relationship with sp ouse or partner Marisol Fritz, JARROD 07/24/2021 F43.21 Adjustment disorder with depress ed mood Paty Lopez [facility] 07/24/2021 F41.8 Other specified anxiety disorder s Paty Lopez [facility] 07/24/2021 Z63.0 Problems in relationship with sp ouse or partner Paty Lopez [facility] 07/03/2021 F43.21 Adjustment disorder with depress ed mood Harvinder Jacobson [facility] 07/03/2021 F41.8 Other specified anxiety disorder s Harvinder Jacobson [facility] 07/03/2021 Z63.0 Problems in relationship with sp ouse or partner Harvinder Jacobson LCSW Plan of Treatment Future Appointment(s):* 09/10/2021 10:00 am - ANA Ruano at [facility] * 09/10/2021 11:20 am - Gigi Mcgarry PA-C at [facility] Functional Status Description No Information Available Mental Status Description No Information Available Referrals Description No Information Available
--- OUTSIDE RECORDS SUMMARY | 2021-10-18 14:14 | CCD | Continuity of Care Document ---
Author Author Eriberto FRITZ RN Organization Unknown Address [address] [place] [address] Phone [phone] Care Team Providers Care Ac/Dc Rewinder Name Role Phone Logan Juancarlos Reyesnicholas [place] [...] Available Procedures Date Code Description Status 08/04/2021 98603 Preventive Counseling Indiv 62 M in Completed 07/03/2021 91616 Psychiatric Diagnostic Evaluatio n Completed Medical Devices Description No Information Available Encounters Type Date Location Provider Dx Diagnosis Office Visit 08/04/2021 1:00p [facility] Marisol Fritz RN F41.8 Other specified [...] disorder with depress ed mood Paty Lopez [facility] 07/24/2021 F41.8 Other specified anxiety disorder s Paty Lopez [facility] 07/24/2021 Z63.0 Problems in relationship with sp ouse or partner Paty Lopez [facility] 07/03/2021 F43.21 Adjustment disorder with depress ed mood [facility] 07/03/2021 F41.8 Other specified anxiety disorder s Harvinder Jacobson LCSW 07/03/2021 Z63.0 Problems in relationship with sp ouse or partner Harvinder Jacobson LCSW Plan of Treatment Future Appointment(s):* 09/10/2021 11:20 am - Gigi Mcgarry PA-C at [facility] * 08/07/2021 11:00 am - ANA Ruano at [facility] Functional Status Description No Information Available Mental Status Description No Information Available Referrals Description No Information Available
--- OUTSIDE RECORDS SUMMARY | 2021-10-18 14:15 | CCD ---
Author Author [facility] Organization [facility] Address Unknown Phone Unavailable Care Team Providers Care Clinical Appeals Rn Name Role Phone Ava Crook Unavailable Ava Crook Unavailable CHELA REHMAN Unavailable Unavailable RANDAL, TATIANA PA Unavailable Unavailable RANDAL, TATIANA PA Unavailable Unavailable RANDAL, TATIANA PA Unavailable Unavailable RANDAL, TATIANA PA Unavailable Unavailable RANDAL, TATIANA PA Unavailable Unavailable RANDAL, TATIANA PA Unavailable Unavailable RANDAL, TATIANA PA Unavailable Unavailable RANDAL, TATIANA PA Unavailable Unavailable RANDAL, TATIANA PA Unavailable Unavailable RANDAL, TATIANA PA Unavailable Unavailable RANDAL, TATIANA PA Unavailable Unavailable RANDAL, TATIANA PA Unavailable Unavailable RANDAL, TATIANA PA Unavailable Unavailable RANDAL, TATIANA PA Unavailable Unavailable RANDAL, TATIANA PA Unavailable Unavailable MEDENT_510, [id number] Unavailable Unavailable Kathy COOL MD Unavailable Unavailable Kathy COOL MD Unavailable Unavailable Kathy COOL MD Unavailable Unavailable ANTECOL, Kathy CABA MD Unavailable Unavailable ANTECOL, Kathy CABA MD Unavailable Unavailable ANTECOL, Kathy CABA MD Unavailable Unavailable ANTECOL, Kathy CABA MD Unavailable Unavailable ANTECOL, Kathy CABA MD Unavailable Unavailable ANTECOL, Kathy CABA MD Unavailable Unavailable ANTECOL, Kathy CABA MD Unavailable Unavailable ANTECOL, Kathy CABA MD Unavailable Unavailable ANTECOL, Kathy CABA MD Unavailable Unavailable ANTECOL, Kathy CABA MD Unavailable Unavailable ANTECOL, Kathy CABA MD Unavailable Unavailable ANTECOL, Kathy CABA MD Unavailable Unavailable ANTECOL, Kathy CABA MD Unavailable Unavailable ANTECOL, Kathy CABA MD Unavailable Unavailable ANTECOL, Kathy CABA MD Unavailable Unavailable ANTECOL, Kathy CABA MD Unavailable Unavailable ANTECOL, Kathy CABA MD Unavailable Unavailable ANTECOL, Kathy CABA MD Unavailable Unavailable ANTECOL, Kathy CABA MD Unavailable Unavailable ANTECOL, Kathy CABA MD Unavailable Unavailable ANTECOL, Kathy CABA MD Unavailable Unavailable ANTECOL, Kathy CABA MD Unavailable Unavailable ANTECOL, Kathy CABA MD Unavailable Unavailable ANTECOL, Kathy CABA MD Unavailable Unavailable ANTECOL, Kathy CABA MD Unavailable Unavailable ANTECOL, Kathy CABA MD Unavailable Unavailable ANTECOL, Kathy CABA MD Unavailable Unavailable ANTECOL, Kathy CABA MD Unavailable Unavailable ANTECOL, Kathy CABA MD Unavailable Unavailable ANTECOL, Kathy CABA MD Unavailable Unavailable ANTECOL, Kathy CABA MD Unavailable Unavailable ANTECOL, Kathy CABA MD Unavailable Unavailable ANTECOL, Kathy CABA MD Unavailable Unavailable ANTECOL, Kathy CABA MD Unavailable Unavailable ANTECOL, Kathy CABA MD Unavailable Unavailable ANTECOL, Kathy CABA MD Unavailable Unavailable ANTECOL, Kathy CABA MD Unavailable Unavailable ANTECOL, Kathy CABA MD Unavailable Unavailable ANTECOL, Kathy CABA MD Unavailable Unavailable ANTECOL, Kathy CABA MD Unavailable Unavailable ANTECOL, Kathy CABA MD Unavailable Unavailable ANTECOL, Kathy CABA MD Unavailable Unavailable ANTECOL, Kathy CABA MD Unavailable Unavailable ANTECOL, Kathy CABA MD Unavailable Unavailable ANTECOL, Kathy CABA MD Unavailable Unavailable ANTECOL, Kathy CABA MD Unavailable Unavailable ANTECOL, Kathy CABA MD Unavailable Unavailable ANTECOL, Kathy CABA MD Unavailable Unavailable ANTECOL, Kathy CABA MD Unavailable Unavailable ANTECOL, Kathy CABA MD Unavailable Unavailable ANTECOL, Kathy CABA MD Unavailable Unavailable ANTECOL, Kathy CABA MD Unavailable Unavailable BREWSTER, J OLIVE PA Unavailable Unavailable BREWSTER, J OLIVE PA Unavailable Unavailable BREWSTER, J OLIVE PA Unavailable Unavailable BREWSTER, J OLIVE PA Unavailable Unavailable BREWSTER, J OLIVE PA Unavailable Unavailable BREWSTER, J OLIVE PA Unavailable Unavailable BREWSTER, J OLIVE PA Unavailable Unavailable BREWSTER, J OLIVE PA Unavailable Unavailable BREWSTER, J OLIVE PA Unavailable Unavailable BREWSTER, J OLIVE PA Unavailable Unavailable BREWSTER, J OLIVE PA Unavailable Unavailable BREWSTER, J OLIVE PA Unavailable Unavailable BREWSTER, J OLIVE PA Unavailable Unavailable BREWSTER, J OLIVE PA Unavailable Unavailable BREWSTER, J OLIVE PA Unavailable Unavailable BREWSTER, J OLIVE PA Unavailable Unavailable BREWSTER, J OLIVE PA Unavailable Unavailable BREWSTER, J OLIVE PA Unavailable Unavailable BREWSTER, J OLIVE PA Unavailable Unavailable BREWSTER, J OLIVE PA Unavailable Unavailable BREWSTER, J OLIVE PA Unavailable Unavailable BREWSTER, J OLIVE PA Unavailable Unavailable BREWSTER, J OLIVE PA Unavailable Unavailable BREWSTER, J OLIVE PA Unavailable Unavailable BREWSTER, J OLIVE PA Unavailable Unavailable BREWSTER, J OLIVE PA Unavailable Unavailable BREWSTER, J OLIVE PA Unavailable Unavailable Kathy SCHULTZ MD Unavailable Unavailable Kathy SCHULTZ MD Unavailable Unavailable Kathy SCHULTZ MD Unavailable Unavailable Kathy SCHULTZ MD Unavailable Unavailable Kathy SCHULTZ MD Unavailable Unavailable Kathy SCHULTZ MD Unavailable Unavailable Kathy SCHULTZ MD Unavailable Unavailable Kathy SCHULTZ MD Unavailable Unavailable Ktahy SCHULTZ MD Unavailable Unavailable Kathy SCHULTZ MD Unavailable Unavailable Kathy SCHULTZ MD Unavailable Unavailable Kathy SCHULTZ MD Unavailable Unavailable Kathy SCHULTZ MD Unavailable Unavailable Kathy SCHULTZ MD Unavailable Unavailable Kathy SCHULTZ MD Unavailable Unavailable Kathy SCHULTZ MD Unavailable Unavailable Kathy SCHULTZ MD Unavailable Unavailable Kathy SCHULTZ MD Unavailable Unavailable Kathy SCHULTZ MD Unavailable Unavailable Kathy SCHULTZ MD Unavailable Unavailable Kathy SCHULTZ MD Unavailable Unavailable Kathy SCHULTZ MD Unavailable Unavailable Kathy SCHULTZ MD Unavailable Unavailable Kathy SCHULTZ MD Unavailable Unavailable Kathy SCHULTZ MD Unavailable Unavailable Kathy SCHULTZ MD Unavailable Unavailable Kathy SCHULTZ MD Unavailable Unavailable Kathy SCHULTZ MD Unavailable Unavailable Kathy SCHULTZ MD Unavailable Unavailable Kathy SCHULTZ MD Unavailable Unavailable Kathy SCHULTZ MD Unavailable Unavailable Kathy SCHULTZ MD Unavailable Unavailable Kathy SCHULTZ MD Unavailable Unavailable Kathy SCHULTZ MD Unavailable Unavailable Kathy SCHULTZ MD Unavailable Unavailable Kathy SCHULTZ MD Unavailable Unavailable Kathy SCHULTZ MD Unavailable Unavailable Kathy SCHULTZ MD Unavailable Unavailable Kathy SCHULTZ MD Unavailable Unavailable Kathy SCHULTZ MD Unavailable Unavailable Kathy SCHULTZ MD Unavailable Unavailable Kathy SCHULTZ MD Unavailable Unavailable Kathy SCHULTZ MD Unavailable Unavailable Kathy SCHULTZ MD Unavailable Unavailable Kathy SCHULTZ MD Unavailable Unavailable Kathy SCHULTZ MD Unavailable Unavailable Kathy SCHULTZ MD Unavailable Unavailable ANTOINE, H DACIA MD Unavailable Unavailable ANTOINE, H DACIA MD Unavailable Unavailable ANTOINE, H DACIA MD Unavailable Unavailable ANTOINE, H DACIA MD Unavailable Unavailable ANTOINE, H DACIA MD Unavailable Unavailable ANTOINE, H DACIA MD Unavailable Unavailable ANTOINE, H DACIA MD Unavailable Unavailable ANTOINE, H DACIA MD Unavailable Unavailable ANTOINE, H DACIA MD Unavailable Unavailable ANTOINE, H DACIA MD Unavailable Unavailable ANTOINE, H DACIA MD Unavailable Unavailable ANTOINE, H DACIA MD Unavailable Unavailable ANTOINE, H DACIA MD Unavailable Unavailable NATOINE, H DACIA MD Unavailable Unavailable ANTOINE, H DACIA MD Unavailable Unavailable ANTOINE, H DACIA MD Unavailable Unavailable ANTOINE, H DACIA MD Unavailable Unavailable ANTOINE, H DACIA MD Unavailable Unavailable ANTOINE, H DACIA MD Unavailable Unavailable ANTOINE, H DACIA MD Unavailable Unavailable ANTOINE, H DACIA MD Unavailable Unavailable ANTOINE, H DACIA MD Unavailable Unavailable ANTOINE, H DACIA MD Unavailable Unavailable ANTOINE, H DACIA MD Unavailable Unavailable ANTOINE, H DACIA MD Unavailable Unavailable ANTOINE, H DACIA MD Unavailable Unavailable ANTOINE, H DACIA MD Unavailable Unavailable ANTOINE, H DACIA MD Unavailable Unavailable ANTOINE, H DACIA MD Unavailable Unavailable ANTOINE, H DACIA MD Unavailable Unavailable ANTOINE, H DACIA MD Unavailable Unavailable ANTOINE, H DACIA MD Unavailable Unavailable JENNIFER, RAMBO SIDING COREBOARD INSPECTOR Unavailable Unavailable JENNIFER, RAMBO SIDING COREBOARD INSPECTOR Unavailable Unavailable Re-disclosure Warning The records that you are about to access may contain information from federally-assisted alcohol or drug abuse programs. If such information is present, then the following federally mandated warning applies: This information has been disclosed to you from records protected by federal confidentiality rules (42 CFR part 2). The federal rules prohibit you from making any further disclosure of this information unless further disclosure is expressly permitted by the written consent of the person to whom it pertains or as otherwise permitted by 42 CFR part 2. A general authorization for the release of medical or other information is NOT sufficient for this purpose. The Federal rules restrict any use of the information to criminally investigate or prosecute any alcohol or drug abuse patient.The records that you are about to access may contain highly sensitive health information, the redisclosure of which is protected by Article 27-F of the [facility] Public Health law. If you continue you may have access to information: Regarding HIV / AIDS; Provided by facilities licensed or operated by the [facility] Office of Mental Health; or Provided by the [facility] Office for People With Developmental Disabilities. If such information is present, then the following [facility] mandated warning applies: This information has been disclosed to you from confidential records which are protected by state law. State law prohibits you from making any further disclosure of this information without the specific written consent of the person to whom it pertains, or as otherwise permitted by law. Any unauthorized further disclosure in violation of state law may result in a fine or senior living sentence or both. A general authorization for the release of medical or other information is NOT sufficient authorization for further disc losure. Family History Family Member Name Family Member Gender Family Member Status Date o f Status Description Data Source(s) Unknown Unknown Problem [facility] ([facility]) Unknown Unknown Problem [facility] ([facility]) Encounters Encounter Providers Location Date Indications Data Source(s ) Outpatient Attender: GERTRUDIS COOL MD Main Office 10/07/2021 02:00:00 PM EST MED[facility] ([facility]) Outpatient Attender: CHELA REHMAN 09/30/20 08:39:00 AM EST - 09/30/2021 08:39:00 AM EST [facility] Outpatient Attender: OLIVE CAO 09/10 10:49:00 AM EDT - 09/10/2021 10:49:00 AM EDT [facility] Outpatient Attender: CHELA REHMAN 09/10/20 09:53:00 AM EDT - 09/10/2021 09:53:00 AM EDT [facility] Outpatient Attender: DACIA SCHULTZ MD [place] Office 02/2021 09:15:00 AM EDT MEDENT ([facility] Outpatient Attender: CHELA REHMAN 08/07/20 10:42:00 AM EDT - 08/07/2021 10:42:00 AM EDT [facility] Outpatient Attender: [id number] [facility] 08/04/2021 01:00:00 PM EDT [facility] ([facility] Outpatient Attender: OLIVE CAO 08/04 12:37:00 PM EDT - 08/04/2021 12:37:00 PM EDT [facility] Outpatient Attender: CHELA REHMAN 07/24/20 10:00:00 AM EDT - 07/24/2021 10:00:00 AM EDT [facility] Outpatient Attender: RAMBOKathy RODRIGUEZ LMSW 10:55:00 AM EDT - 07/03/2021 10:55:00 AM EDT [facility] Outpatient Attender: Ava Crook 06/22/2021 11:47:00 AM [facility] Outpatient Attender: DACIA SCHULTZ MD [place] [facility] 04/2021 02:30:00 PM EDT MED[facility] ([facility] Outpatient Attender: GERTRUDIS COOL MD Main Office 04/10/2021 12:30:00 PM EDT MED[facility] ([facility]) [place]patient [address] [address] 03/17/2021 12:00:00 AM EDT eCW1 ([facility]) Outpatient Attender: GERTRUDIS COOL MD Main Office 02/05/2021 11:15:00 AM EDT MEDENT ([facility]) Outpatient Attender: DACIA SCHULTZ MD [place] [facility] 03:00:00 PM EDT MED[facility] ([facility] Outpatient Attender: DACIA SCHULTZ MD [place] [facility] 01:45:00 PM EST MED[facility] ([facility] Outpatient Attender: DACIA SCHULTZ MD [place] [facility] 10:20:00 AM EDT [facility] ([facility] Emergency Attender: [facility] 03/2012 03:32:00 PM EDT - 04/11/2012 07:45:00 PM [facility] Immunizations Vaccine Date Status Description Data Source(s) COVID-19 VACCINE Pfizer 08/06/2021 12:00:00 AM EDT completed [facility] Vaccine Series Complete: YESThis Data wa s Submitted to [facility] Via [employer]. COVID-19 VACCINE Pfizer 11/20/2020 12:00:00 AM EST completed [facility] Vaccine Series Complete: YESThis Data wa s Submitted to [facility] Via [employer]. COVID-19 VACCINE Pfizer 10/30/2020 12:00:00 AM EST completed [facility] Vaccine Series Complete: NOThis Data was Submitted to [facility] Via [employer]. Medications Medication Brand Name Start Date Product Form Dose Route Admi nistrative Instructions Pharmacy Instructions Status Indications Reaction Description Data Source(s) Finasteride 5 MG Oral Tablet Finasteride 10/06/2021 12:00:00 AM EST ORAL active [facility] ([facility]) latanoprost 0.05 MG/ML Ophthalmic Solution Latanoprost 10/06/2021 12:00:00 AM EST OPHTHALMIC active [facility] ([facility]) Pfizer-Biontech Covid-19 Vaccine Pfizer-Biontech Covid-19 Va ccine 08/10/2021 12:00:00 AM EDT active M EDENT ([facility] Amoxicillin 875 MG Oral Tablet Amoxicillin 05/20/2021 12:00:00 AM EDT ORAL completed MED[facility] ([facility] Zithromax Z-Jozef Zithromax Z-Jozef 05/12/2021 12:00:00 AM EDT ORAL completed [facility] ([facility] Tamsulosin hydrochloride 0.4 MG Oral Capsule Tamsulosi n HCl 0.4 MG Tamsulosin HCl 0.4 MG 03/17/2021 12:00:00 AM EDT 1.0 {capsule} active Tamsulosin HCl 0.4 MG eCW1 ([facility]) Aspirin 81 MG Delayed Release Oral Tablet Aspirin 02/04/2021 1 2:00:00 AM EDT ORAL active [facility] ([facility]) Ciprofloxacin 500 MG Oral Tablet Ciprofloxacin HCL 09/04/2020 12:00 :00 AM EDT ORAL completed [facility] ([facility] Glucagon 1 MG Injection Glucagon Emergency 09/01/2020 12:00:00 AM EDT active [facility] ([facility] Insurance Providers Payer name Policy type / Coverage type Policy ID Covered libertarian ID Covered libertarian's relationship to garcia Policy Garcia Plan Information BC/BS Of [facility] Part B [id number] Self S [id number] BC/BS Of [facility] B [id number] Self BC/BS Of [facility] [id number] Self S [id number] BC/BS Of [facility] [id number] Self S [id number] BC/BS Of [facility] [id number] Self [id number] BC/BS Of [facility] [id number] Self [id number] [id number] Self [facility] Ppo Medigap Part B [id number] Self [id number] [facility] Ppo Medigap Part B [id number] Self Healthy [employer] Ppo Medigap Part B [id number] Self V [id number] Healthy [employer] Ppo Medigap Part B [id number] Self [id number] Healthy Blue Ppo Medigap Part B [id number] Self Healthy Blue Ppo Medigap Part B [id number] Self [id number] Healthy Blue Ppo Medigap Part B [id number] Self V [id number] Healthy Blue Ppo Medigap Part B [id number] Self V [id number] BC EXC PLANS 1 [id number] MVP [id number] Tanesha [id number] MVP Commercial [id number] Self MVP Commercial [id number] Self [id number] BCBS [employer] U/[employer] Commercial [id number] Self [id number] BCBS [employer] U/[employer] Commercial [id number] Self [id number] BCBS [employer] U/W Commercial [id number] Self [id number] BCBS [employer] U/W Commercial [id number] Self [id number] BCBS [place] PPO 302/307 [id number] SP [id number] BCBS [place] PPO 302/307 [id number] SP [id number] BCBS [employer] Ppo U/W Commercial [id number] Self V [id number] BCBS [employer] Ppo U/W Commercial [id number] Self BCBS [place] PPO 302/307 [id number] SP [id number] BCBS [place] PPO 302/307 [id number] SP [id number] BCBS [place] PPO 302/307 [id number] [facility] [id number] Family Dependent [id number] BCBS [place] PPO 302/307 [id number] SP [id number] F [facility] [id number] SP [id number] F [facility] [id number] WI2 [id number] BS Of [place] Commercial [id number] Self [id number] SELF PAY 2 UNAVAILABLE 1 UNAVAILA BLE [facility] [id number] Family Dependent [id number] [employer] BCBS B [id number] P [id number] BCBS [place] PPO 302/307 [id number] WI2 [id number] SELF PAY ONLY [id number] SP [id number] BCBS [place] PPO 302/307 [id number] [place]2 [id number] BCBS [place] PPO 302/307 [id number] SP [id number] [facility] Commercial [id number] Family Dependent SELF PAY BCBS [place] PPO 302/307 [id number] SP [id number] BCBS [place] PPO 302/307 [id number] SP [id number] [facility] [id number] SP [id number] BCBS [place] O [id number] SP [id number] [facility] PHY [id number] SP [id number] BC/BS Of [place] [id number] Self BCBS OF [place] [id number] S [id number] BCBS ESSENTIAL [id number] S [id number] BCBS [place] HMO [id number] SP [id number] MVP Commercial [id number] Family Dependent [id number] MVP Commercial [id number] Family Dependent [id number] [facility] [id number] 18 [id number] [facility] [id number] SP [id number] EXCELL[employer] BCBS B [id number] S [id number] MVP Commercial [id number] Family Dependent [id number] Problems, Conditions, and Diagnoses Code Display Name Description Problem Type Effective Dates Data Source(s) Z630 Problems in relationship with spouse or partner Problems in relationship with spouse or partner Diagnosis 09/30/2021 08:39:00 AM [facility] F4321 Adjustment disorder with depressed mood Adjustment disorder with depressed mood Diagnosis 09/30/2021 08:39:00 AM [facility] F418 Other specified anxiety disorders Other specifie d anxiety disorders Diagnosis 09/30/2021 08:39:00 AM [facility] F43.23 Adjustment disorder with mixed anxiety a nd depressed mood ADJUSTMENT DISORDER WITH MIXED ANXIETY AND DEPRESSED MOOD Diagnosis 021 11:47:00 AM [facility] F41.8 Anxiety state Anxiety state Problem 07/03/2021 12:00:00 AM EDT MEDENT ([facility]) Z63.0 Family problems Family problems Problem 07/03/2021 12:0 0:00 AM EDT MEDENT ([facility]) F43.21 Adjustment disorder with depressed mood Adjustment disorder with depressed mood Problem 07/03/2021 12:00:00 AM EDT MEDENT ([facility]) R94.39 Abnormal results of cardiovascular funct ion studies Abnormal results of cardiovascular function studies Problem 04/10/2021 12:00:00 AM EDT M EDENT ([facility]) Surgeries/Procedures Procedure Description Date Indications Data Source(s) ECG ROUTINE ECG W/LEAST 12 LDS W/I&R 10/07/2021 12:00: 00 AM EST MEDENT ([facility]) Arterial Pressure Waveform Analysis For Assessment Of Centra l Art 10/07/2021 12:00:00 AM EST [facility] ([facility]) OFFICE OUTPATIENT VISIT 25 MINUTES 10/07/2021 12:00:00 AM EST MED[facility] ([facility]) Psychiatric Diag Eval W/Medical Service 09/10/2021 12: 00:00 AM EDT MEDENT ([facility]) OFFICE OUTPATIENT VISIT 25 MINUTES 08/10/2021 12:00:00 AM EDT MED[facility] ([facility] PREVENT MED SPACE OFFICER&/RISK FACTOR REDJ SPX 60 MIN 08/04 12:00:00 AM EDT MEDENT ([facility]) Psychiatric Diagnostic Evaluation 07/03/2021 12:00:00 AM EDT MEDENT ([facility]) OFFICE OUTPATIENT VISIT 25 MINUTES 05/12/2021 12:00:00 AM EDT MED[facility] ([facility] OFFICE OUTPATIENT VISIT 15 MINUTES 04/10/2021 12:00:00 AM EDT MED[facility] ([facility]) MYOCARDIAL SPECT MULTIPLE STUDIES 04/07/2021 12:00:00 AM EDT MED[facility] ([facility]) CV STRS TST XERS&/OR RX CONT ECG PHYS SI&R 04/07/2021 12:00:00 AM EDT MED[facility] ([facility]) uro PVR (Post Voiding Residual) Bladder Scan 12:00:00 AM EDT eCW1 ([facility]) ECG ROUTINE ECG W/LEAST 12 LDS W/I&R 02/05/2021 12:00: 00 AM EDT MED[facility] ([facility]) Arterial Pressure Waveform Analysis For Assessment Of Centra l Art 02/05/2021 12:00:00 AM EDT MED[facility] ([facility]) OFFICE OUTPATIENT VISIT 25 MINUTES 02/04/2021 12:00:00 AM EDT [facility] ([facility] Results ID Date Data Source [id number] 09/15/2021 01:59:00 PM EST [facility] ([facility]) Name Value Range Interpretation Code Description Data Margo rce(s) Supporting Document(s) Glucose 158 [facility] Blood Urea Nitrogen 25.8 [facility] ([facility] Glomerular filtration rate/1.73 sq M.pre dicted [Volume Rate/Area] in Serum or Plasma by Creatinine-based formula (MDRD) 56 [facility] Creatinine 1.3 [facility] Sodium 142.5 [facility] Potassium 4.86 [facility] Chloride 109 [facility] Carbon Dioxide 29.7 [facility] ([facility]) Calcium 9.2 [facility] Phosphorus 2.7 [facility] ([facility]) Albumin 3.9 [facility] ID Date Data Source [id number] 09/15/2021 01:59:00 PM EST [facility] ([facility]) Name Value Range Interpretation Code Description Data Margo rce(s) Supporting Document(s) White Blood Count 7.4 [facility] ([facility]) Red Blood Count 4.92 [facility] Platelets 254 [facility] Hematocrit 44.1 [facility] Hemoglobin 14.7 [facility] ([facility]) ID Date Data Source [id number] 09/09/2021 04:21:00 PM EDT [facility] ([facility] Name Value Range Interpretation Code Description Data Margo rce(s) Supporting Document(s) Triglycerides 83 [facility] ([facility] Cholesterol 152 [facility] ([facility]) HDL 53 [facility] Chol/HDL Ratio 2.867 [facility] ([facility] Cholesterol in LDL [Mass/volume] in Serum or Plasma by calculation 82 [facility] ([facility]) ID Date Data Source [id number] 09/08/2021 11:39:00 AM EDT [facility] Name Value Range Interpretation Code Description Data Margo rce(s) Supporting Document(s) Cholesterol Level 152 mg/dL Normal (applies to non-numeri c results) [facility] ([facility] Triglycerides Level 83 mg/dL Normal (applies to non-nume clemente results) [facility] ([facility] LDL Cholesterol 82 mg/dL Normal (applies to non-numeric results) [facility] ([facility] HDL Cholesterol 53 mg/dL Normal (applies to non-numeric results) [facility] ([facility] Non-HDL-C 99 mg/dL Normal (applies to non-numeric resul ts) [facility] ([facility] Cholesterol Risk Ratio 2.867 Normal (applies to non-n umeric results) [facility] ([facility] ID Date Data Source [id number] 09/08/2021 11:39:00 AM EDT [facility] ([facility] Name Value Range Interpretation Code Description Data Margo rce(s) Supporting Document(s) Blood Urea Nitrogen 34 mg/dL 7-18 Above high normal [facility] ([facility] Creatinine For GFR 1.39 mg/dL 0.70-1.30 Above high normal [facility] ([facility] Glucose, Fasting 52 mg/dL 70-100 Below low normal [facility] ([facility] Glomerular Filtration Rate 54.8 Normal (applies to n on-numeric results) [facility] ([facility] <content>Units are mL/min/1.73 m2</content>
<content></content>
<content>Chronic Kidney Disease Staging per NKF:</content>
<content></content>
<content>Stage I & II GFR >=60 Normal to Mildly Decreased</content>
<content>Stage III GFR 30- 59 Moderately Decreased</content>
<content>Stage IV GFR 15-29 Severely Decreased</content>
<content>Stage V GFR <15 Very Little GFR Left</content>
<content>ESRD GFR <15 on SCRUM COACH</content>
<content></content> Sodium Level 145 meq/L 136-145 Normal (applies to non-numeric res ults) [facility] ([facility] Potassium Serum 4.3 meq/L 3.5-5.1 Normal (applies to non-numeric results) [facility] ([facility] Chloride Level 114 meq/L 98-107 Above high normal [facility] ([facility] Carbon Dioxide Level 28 meq/L 21-32 Normal (applies to non-num ashley results) [facility] ([facility] Anion Gap 3 meq/L 8-16 Below low normal [facility] ( [facility] Ast/Sgot 25 U/L 7-37 Normal (applies to non-numeric resul ts) [facility] ([facility] Calcium Level 9.6 mg/dL 8.8-10.2 Normal (applies to non-numeric re sults) [facility] ([facility] Alt/SGPT 48 U/L 12-78 Normal (applies to non-numeric resul ts) [facility] ([facility] Alkaline Phosphatase 128 U/L 45-117 Above high normal [facility] ([facility] Total Protein 6.8 GM/DL 6.4-8.2 Normal (applies to non-numeric re sults) [facility] ([facility] Bilirubin,Total 0.4 mg/dL 0.2-1.0 Normal (applies to non-numeric results) [facility] ([facility] Albumin 3.6 GM/DL 3.2-5.2 Normal (applies to non-numeric resul ts) [facility] ([facility] Albumin/Globulin Ratio 1.1 Normal (applies to non-n umeric results) [facility] ([facility] ID Date Data Source [id number] 09/08/2021 11:39:00 AM EDT [facility] ([facility] Name Value Range Interpretation Code Description Data Margo rce(s) Supporting Document(s) Estimated Average Glucose 203 mg/dL 60-110 Above high normal [facility] ([facility] Hemoglobin A1c 8.7 % Normal (applies to non-numeric r esults) [facility] ([facility] <content>REFERENCE RANGES:</content><br/ ><content></content>
<content><=5.6% NORMAL</content>
<content>5.7-6.4% SUGGESTS IMPAIRED GLUCOSE METABOLISM/PREDIABETIC</content>
<content>>= 6.5% ABNORMAL</content>
<content></content> ID Date Data Source [id number] 08/04/2021 02:04:00 PM EDT [facility] ([facility]) Name Value Range Interpretation Code Description Data Margo rce(s) Supporting Document(s) Laboratory test finding (navigational concept) Laboratory test result [facility] ([facility]) {DIAGNOSIS: F43.21 F41.8 Z63.0~{MEDICAT IONS/DECLARED: ASPIRIN LORAZEPAM CARVEDILOL~{PRESCRIPTIO PDF Laboratory test result [facility] ([facility]) {DIAGNOSIS: F43.21 F41.8 Z63.0~{MEDICAT IONS/DECLARED: ASPIRIN LORAZEPAM CARVEDILOL~{PRESCRIPTIO ID Date Data Source [id number] 08/13/2021 06:26:00 AM EDT [facility] Name Value Range Interpretation Code Description Data Margo rce(s) Supporting Document(s) Drugs identified in Urine FINAL [facility] TOXASSURE SELECT 13 (MW) Test Result Flag UnitsDrug Present and Declared for Prescription Verification Lorazepam 127 EXPECTED ng/mg creat Source of lorazepam is a scheduled prescription medica tion. Test Result Flag Units Ref Range Creatinine 45 mg/dL > =20 Declared Medications: The flagging and interpretation on this report are based on the following declared medications. Unexpected results may arise from inaccuracies in the declared medications. Note: The testing scope of this panel includes these medications: Lorazepam Note: The testing scope of this panel does not include following reported medications: Aspirin Carvedilol Fo r clinical consultation, please call . Report . [facility] ID Date Data Source [id number] 05/18/2021 11:20:00 AM EDT [facility] Name Value Range Interpretation Code Description Data Margo rce(s) Supporting Document(s) SARS-CoV-2 (COVID-19) RNA [Presence] in Respiratory specimen by ZEN with probe detection Not Detected [facility] This lab was ordered by [facility] and reported by [employer]. ID Date Data Source [id number] 05/16/2021 11:15:00 AM EDT [facility] ([facility] Name Value Range Interpretation Code Description Data Margo rce(s) Supporting Document(s) Lyme Disease IgG/IgM Antibodie Laboratory test result 0.00-0.90 Normal (applies to non-numeric results) [facility] ([facility] <content>Negative <0.91</content >
<content>Equivocal 0.91 - 1.09</content>
<content>Positive >1.09</content>
<content></content> Lyme Disease IgM Ab Quantitati Laboratory test result 0.00-0.79 Normal (applies to non-numeric results) [facility] ([facility] <content>Negative <0.80</content >
<content>Equivocal 0.80 - 1.19</content>
<content>Positive >1.19</content>
<content>.</content>
<content>IgM levels may peak at 3-6 weeks post infection, then</content>
<content>gradually decline.</content>
<content>Performed at: [facility]</content>
<content>[address] [place] [address] [id number]</content>
<content>Alarm Signal Operator: Tasha Zambrano MD, Phone: [phone]</content>
<content></content> ID Date Data Source [id number] 05/16/2021 11:15:00 AM EDT [facility] ([facility] Name Value Range Interpretation Code Description Data Margo rce(s) Supporting Document(s) Cholesterol Level 137 mg/dL Normal (applies to non-numeri c results) [facility] ([facility] Triglycerides Level 130 mg/dL Normal (applies to non-nume clemente results) [facility] ([facility] LDL Cholesterol 70 mg/dL Normal (applies to non-numeric results) [facility] ([facility] Non-HDL-C 96 mg/dL Normal (applies to non-numeric resul ts) [facility] ([facility] HDL Cholesterol 41 mg/dL Normal (applies to non-numeric results) [facility] ([facility] Cholesterol Risk Ratio 3.341 Normal (applies to non-n umeric results) [facility] ID Date Data Source [id number] 05/16/2021 11:15:00 AM EDT [facility] Name Value Range Interpretation Code Description Data Margo rce(s) Supporting Document(s) Glucose, Fasting 132 mg/dL 70-100 Above high normal M ED[facility] ([facility] Blood Urea Nitrogen 33 mg/dL 7-18 Above high normal [facility] ([facility] Sodium Level 145 meq/L 136-145 Normal (applies to non-numeric res ults) [facility] ([facility] Creatinine For GFR 1.43 mg/dL 0.70-1.30 Above high normal [facility] Glomerular Filtration Rate 53.0 Normal (applies to n on-numeric results) [facility] ([facility] <content>Units are mL/min/1.73 m2</content>
<content></content>
<content>Chronic Kidney Disease Staging per NKF:</content>
<content></content>
<content>Stage I & II GFR >=60 Normal to Mildly Decreased</content>
<content>Stage III GFR 30- 59 Moderately Decreased</content>
<content>Stage IV GFR 15-29 Severely Decreased</content>
<content>Stage V GFR <15 Very Little GFR Left</content>
<content>ESRD GFR <15 on SCRUM COACH</content>
<content></content> Carbon Dioxide Level 28 meq/L 21-32 Normal (applies to non-num ashley results) [facility] ([facility] Potassium Serum 4.6 meq/L 3.5-5.1 Normal (applies to non-numeric results) [facility] ([facility] Chloride Level 109 meq/L 98-107 Above high normal [facility] ([facility] Calcium Level 9.1 mg/dL 8.8-10.2 Normal (applies to non-numeric re sults) [facility] ([facility] Anion Gap 8 meq/L 8-16 Normal (applies to non-numeric resul ts) [facility] ([facility] Alkaline Phosphatase 137 U/L 45-117 Above high normal [facility] ([facility] Ast/Sgot 26 U/L 7-37 Normal (applies to non-numeric resul ts) [facility] ([facility] Alt/SGPT 48 U/L 12-78 Normal (applies to non-numeric resul ts) [facility] ([facility] Bilirubin,Total 0.5 mg/dL 0.2-1.0 Normal (applies to non-numeric results) [facility] ([facility] Total Protein 6.9 GM/DL 6.4-8.2 Normal (applies to non-numeric re sults) [facility] ([facility] Albumin/Globulin Ratio 1.0 Normal (applies to non-n umeric results) [facility] ([facility] Albumin 3.4 GM/DL 3.2-5.2 Normal (applies to non-numeric resul ts) [facility] ([facility] ID Date Data Source [id number] 05/16/2021 11:15:00 AM EDT [facility] ([facility] Name Value Range Interpretation Code Description Data Margo rce(s) Supporting Document(s) Hemoglobin A1c 8.8 % Normal (applies to non-numeric r esults) [facility] ([facility] <content>REFERENCE RANGES:</content><br/ ><content></content>
<content><=5.6% NORMAL</content>
<content>5.7-6.4% SUGGESTS IMPAIRED GLUCOSE METABOLISM/PREDIABETIC</content>
<content>>= 6.5% ABNORMAL</content>
<content></content> Estimated Average Glucose 206 mg/dL 60-110 Above high normal [facility] ([facility] ID Date Data Source [id number] 05/16/2021 11:15:00 AM EDT [facility] ([facility] Name Value Range Interpretation Code Description Data Margo rce(s) Supporting Document(s) Red Blood Count 4.98 10 4.30-6.10 Normal (applies to non-numeric results) [facility] ([facility] White Blood Count 9.5 10 4.0-10.0 Normal (applies to non-numeri c results) [facility] ( [facility] Hemoglobin 14.7 g/dL 13.5-17.5 Normal (applies to non-numeric resul ts) [facility] ([facility] Mean Corpuscular Hemoglobin 29.5 pg 27.0-33.0 Norm al (applies to non-numeric results) [facility] ([facility] ) Mean Corpuscular Volume 87.3 fl 80.0-96.0 Normal ( applies to non-numeric results) [facility] ([facility] ) Hematocrit 43.5 % 42.0-52.0 Normal (applies to non-numeric resul ts) [facility] ([facility] Red Cell Distribution Width 12.2 % 11.5-14.5 Norm al (applies to non-numeric results) [facility] ([facility] ) Mean Corpuscular HGB Conc 33.8 g/dL 32.0-36.5 Normal (applies to non-numeric results) [facility] ( [facility] Platelet Count, Automated 241 10 150-450 Normal (applies to non-numeric results) [facility] ([facility] ) Nucleated Red Blood Cell % 0.0 % 0-0 Normal (applies to n on-numeric results) [facility] ([facility] ID Date Data Source [id number] 02/16/2021 07:32:00 AM EDT [facility] ([facility]) Name Value Range Interpretation Code Description Data Margo rce(s) Supporting Document(s) Magnesium Level 2.07 [facility] ([facility]) ID Date Data Source [id number] 02/16/2021 07:32:00 AM EDT [facility] ([facility] Name Value Range Interpretation Code Description Data Margo rce(s) Supporting Document(s) Blood Urea Nitrogen 25.6 [facility] ([facility]) Glucose 298 [facility] Creatinine 1.3 [facility] ([facility]) Glomerular filtration rate/1.73 sq M.pre dicted [Volume Rate/Area] in Serum or Plasma by Creatinine-based formula (MDRD) 56 [facility] ([facility]) Sodium 134.1 [facility] Potassium 4.84 [facility] Chloride 97.3 [facility] Carbon Dioxide 32.6 [facility] Phosphorus 3.1 [facility] ([facility]) Calcium 9.5 [facility] Albumin 4.0 [facility] ID Date Data Source [id number] 02/16/2021 07:32:00 AM EDT [facility] ([facility] Name Value Range Interpretation Code Description Data Margo rce(s) Supporting Document(s) White Blood Count 8.5 [facility] Red Blood Count 4.80 [facility] Platelets 254 [facility] Hemoglobin 14.2 [facility] Hematocrit 42.8 [facility] ID Date Data Source [id number] 02/06/2021 11:04:00 AM EDT [facility] ([facility] Name Value Range Interpretation Code Description Data Margo rce(s) Supporting Document(s) Triglycerides Level 66 mg/dL Normal (applies to non-nume clemente results) [facility] ([facility] CHRONIC KIDNEY DISEASE STAGING PER NKF: MALE GFR INTERPRETATION: 20-49 YRS: >60 mL/min Normal 50-59 YRS: >56 mL/min Normal 60-69 YRS: >49 mL/min Normal 70-79 YRS: >42 mL/min Normal 80 and above >35 mL/min Normal FEMALE GRF INTERPRETATION: 20-39 YRS: >60 mL/min Normal 40-49 YRS: >58 mL/min Normal 50-59 YRS: >51 mL/min Normal 60-69 YRS: >45 mL/min Normal 70-79 YRS: >39 mL/min Normal 80 and above >32 mL/min NormalCLASSIFICATION CHOLESTEROL FOR ADULTS CHILDREN/ADOLESCENTS* DESIRABLE: <200 MG/DL <170 MG/DL BORDER-LINE HIGH RISK: 200-239 MG/DL 170-199 MG/DL HIGH RISK: >240 MG/DL >200 MG/DL CLASS. FOR PRIMARY LDL CHOL PREVENTION: LDL CHOL-CHILD/ADOLESCENTS* DESIRABLE: <130 MG/DL <110 MG/DL BORDERLINE-HIGH RISK: 130-159 MG/DL 110-129 MG/DL HIGH RISK: >160 MG/DL >130 MG/DL *CHILDREN AND ADOLESCENTS REPRESENTS INDIVIDUALA AGED 2-19 YEARS EXCLUSIVE. Cholesterol Level 142 mg/dL Normal (applies to non-numeri c results) [facility] ([facility] CHRONIC KIDNEY DISEASE STAGING PER NKF: MALE GFR INTERPRETATION: 20-49 YRS: >60 mL/min Normal 50-59 YRS: >56 mL/min Normal 60-69 YRS: >49 mL/min Normal 70-79 YRS: >42 mL/min Normal 80 and above >35 mL/min Normal FEMALE GRF INTERPRETATION: 20-39 YRS: >60 mL/min Normal 40-49 YRS: >58 mL/min Normal 50-59 YRS: >51 mL/min Normal 60-69 YRS: >45 mL/min Normal 70-79 YRS: >39 mL/min Normal 80 and above >32 mL/min NormalCLASSIFICATION CHOLESTEROL FOR ADULTS CHILDREN/ADOLESCENTS* DESIRABLE: <200 MG/DL <170 MG/DL BORDER-LINE HIGH RISK: 200-239 MG/DL 170-199 MG/DL HIGH RISK: >240 MG/DL >200 MG/DL CLASS. FOR PRIMARY LDL CHOL PREVENTION: LDL CHOL-CHILD/ADOLESCENTS* DESIRABLE: <130 MG/DL <110 MG/DL BORDERLINE-HIGH RISK: 130-159 MG/DL 110-129 MG/DL HIGH RISK: >160 MG/DL >130 MG/DL *CHILDREN AND ADOLESCENTS REPRESENTS INDIVIDUALA AGED 2-19 YEARS EXCLUSIVE. HDL Cholesterol 56 mg/dL Normal (applies to non-numeric results) [facility] ([facility] CHRONIC KIDNEY DISEASE STAGING PER NKF: MALE GFR INTERPRETATION: 20-49 YRS: >60 mL/min Normal 50-59 YRS: >56 mL/min Normal 60-69 YRS: >49 mL/min Normal 70-79 YRS: >42 mL/min Normal 80 and above >35 mL/min Normal FEMALE GRF INTERPRETATION: 20-39 YRS: >60 mL/min Normal 40-49 YRS: >58 mL/min Normal 50-59 YRS: >51 mL/min Normal 60-69 YRS: >45 mL/min Normal 70-79 YRS: >39 mL/min Normal 80 and above >32 mL/min NormalCLASSIFICATION CHOLESTEROL FOR ADULTS CHILDREN/ADOLESCENTS* DESIRABLE: <200 MG/DL <170 MG/DL BORDER-LINE HIGH RISK: 200-239 MG/DL 170-199 MG/DL HIGH RISK: >240 MG/DL >200 MG/DL CLASS. FOR PRIMARY LDL CHOL PREVENTION: LDL CHOL-CHILD/ADOLESCENTS* DESIRABLE: <130 MG/DL <110 MG/DL BORDERLINE-HIGH RISK: 130-159 MG/DL 110-129 MG/DL HIGH RISK: >160 MG/DL >130 MG/DL *CHILDREN AND ADOLESCENTS REPRESENTS INDIVIDUALA AGED 2-19 YEARS EXCLUSIVE. LDL Cholesterol 73 mg/dL Normal (applies to non-numeric results) [facility] ([facility] CHRONIC KIDNEY DISEASE STAGING PER NKF: MALE GFR INTERPRETATION: 20-49 YRS: >60 mL/min Normal 50-59 YRS: >56 mL/min Normal 60-69 YRS: >49 mL/min Normal 70-79 YRS: >42 mL/min Normal 80 and above >35 mL/min Normal FEMALE GRF INTERPRETATION: 20-39 YRS: >60 mL/min Normal 40-49 YRS: >58 mL/min Normal 50-59 YRS: >51 mL/min Normal 60-69 YRS: >45 mL/min Normal 70-79 YRS: >39 mL/min Normal 80 and above >32 mL/min NormalCLASSIFICATION CHOLESTEROL FOR ADULTS CHILDREN/ADOLESCENTS* DESIRABLE: <200 MG/DL <170 MG/DL BORDER-LINE HIGH RISK: 200-239 MG/DL 170-199 MG/DL HIGH RISK: >240 MG/DL >200 MG/DL CLASS. FOR PRIMARY LDL CHOL PREVENTION: LDL CHOL-CHILD/ADOLESCENTS* DESIRABLE: <130 MG/DL <110 MG/DL BORDERLINE-HIGH RISK: 130-159 MG/DL 110-129 MG/DL HIGH RISK: >160 MG/DL >130 MG/DL *CHILDREN AND ADOLESCENTS REPRESENTS INDIVIDUALA AGED 2-19 YEARS EXCLUSIVE. Non-HDL-C 86 mg/dL Normal (applies to non-numeric resul ts) [facility] ([facility] CHRONIC KIDNEY DISEASE STAGING PER NKF: MALE GFR INTERPRETATION: 20-49 YRS: >60 mL/min Normal 50-59 YRS: >56 mL/min Normal 60-69 YRS: >49 mL/min Normal 70-79 YRS: >42 mL/min Normal 80 and above >35 mL/min Normal FEMALE GRF INTERPRETATION: 20-39 YRS: >60 mL/min Normal 40-49 YRS: >58 mL/min Normal 50-59 YRS: >51 mL/min Normal 60-69 YRS: >45 mL/min Normal 70-79 YRS: >39 mL/min Normal 80 and above >32 mL/min NormalCLASSIFICATION CHOLESTEROL FOR ADULTS CHILDREN/ADOLESCENTS* DESIRABLE: <200 MG/DL <170 MG/DL BORDER-LINE HIGH RISK: 200-239 MG/DL 170-199 MG/DL HIGH RISK: >240 MG/DL >200 MG/DL CLASS. FOR PRIMARY LDL CHOL PREVENTION: LDL CHOL-CHILD/ADOLESCENTS* DESIRABLE: <130 MG/DL <110 MG/DL BORDERLINE-HIGH RISK: 130-159 MG/DL 110-129 MG/DL HIGH RISK: >160 MG/DL >130 MG/DL *CHILDREN AND ADOLESCENTS REPRESENTS INDIVIDUALA AGED 2-19 YEARS EXCLUSIVE. Cholesterol Risk Ratio 2.535 Normal (applies to non-n umeric results) [facility] ([facility] CHRONIC KIDNEY DISEASE STAGING PER NKF: MALE GFR INTERPRETATION: 20-49 YRS: >60 mL/min Normal 50-59 YRS: >56 mL/min Normal 60-69 YRS: >49 mL/min Normal 70-79 YRS: >42 mL/min Normal 80 and above >35 mL/min Normal FEMALE GRF INTERPRETATION: 20-39 YRS: >60 mL/min Normal 40-49 YRS: >58 mL/min Normal 50-59 YRS: >51 mL/min Normal 60-69 YRS: >45 mL/min Normal 70-79 YRS: >39 mL/min Normal 80 and above >32 mL/min NormalCLASSIFICATION CHOLESTEROL FOR ADULTS CHILDREN/ADOLESCENTS* DESIRABLE: <200 MG/DL <170 MG/DL BORDER-LINE HIGH RISK: 200-239 MG/DL 170-199 MG/DL HIGH RISK: >240 MG/DL >200 MG/DL CLASS. FOR PRIMARY LDL CHOL PREVENTION: LDL CHOL-CHILD/ADOLESCENTS* DESIRABLE: <130 MG/DL <110 MG/DL BORDERLINE-HIGH RISK: 130-159 MG/DL 110-129 MG/DL HIGH RISK: >160 MG/DL >130 MG/DL *CHILDREN AND ADOLESCENTS REPRESENTS INDIVIDUALA AGED 2-19 YEARS EXCLUSIVE. ID Date Data Source [id number] 02/06/2021 11:04:00 AM EDT [facility] ([facility] Name Value Range Interpretation Code Description Data Margo rce(s) Supporting Document(s) Glucose, Fasting 244 mg/dL 70-100 Above high normal M [facility] ([facility] CHRONIC KIDNEY DISEASE STAGING PER NKF: MALE GFR INTERPRETATION: 20-49 YRS: >60 mL/min Normal 50-59 YRS: >56 mL/min Normal 60-69 YRS: >49 mL/min Normal 70-79 YRS: >42 mL/min Normal 80 and above >35 mL/min Normal FEMALE GRF INTERPRETATION: 20-39 YRS: >60 mL/min Normal 40-49 YRS: >58 mL/min Normal 50-59 YRS: >51 mL/min Normal 60-69 YRS: >45 mL/min Normal 70-79 YRS: >39 mL/min Normal 80 and above >32 mL/min NormalCLASSIFICATION CHOLESTEROL FOR ADULTS CHILDREN/ADOLESCENTS* DESIRABLE: <200 MG/DL <170 MG/DL BORDER-LINE HIGH RISK: 200-239 MG/DL 170-199 MG/DL HIGH RISK: >240 MG/DL >200 MG/DL CLASS. FOR PRIMARY LDL CHOL PREVENTION: LDL CHOL-CHILD/ADOLESCENTS* DESIRABLE: <130 MG/DL <110 MG/DL BORDERLINE-HIGH RISK: 130-159 MG/DL 110-129 MG/DL HIGH RISK: >160 MG/DL >130 MG/DL *CHILDREN AND ADOLESCENTS REPRESENTS INDIVIDUALA AGED 2-19 YEARS EXCLUSIVE. Blood Urea Nitrogen 22 mg/dL 7-18 Above high normal [facility] ([facility] CHRONIC KIDNEY DISEASE STAGING PER NKF: MALE GFR INTERPRETATION: 20-49 YRS: >60 mL/min Normal 50-59 YRS: >56 mL/min Normal 60-69 YRS: >49 mL/min Normal 70-79 YRS: >42 mL/min Normal 80 and above >35 mL/min Normal FEMALE GRF INTERPRETATION: 20-39 YRS: >60 mL/min Normal 40-49 YRS: >58 mL/min Normal 50-59 YRS: >51 mL/min Normal 60-69 YRS: >45 mL/min Normal 70-79 YRS: >39 mL/min Normal 80 and above >32 mL/min NormalCLASSIFICATION CHOLESTEROL FOR ADULTS CHILDREN/ADOLESCENTS* DESIRABLE: <200 MG/DL <170 MG/DL BORDER-LINE HIGH RISK: 200-239 MG/DL 170-199 MG/DL HIGH RISK: >240 MG/DL >200 MG/DL CLASS. FOR PRIMARY LDL CHOL PREVENTION: LDL CHOL-CHILD/ADOLESCENTS* DESIRABLE: <130 MG/DL <110 MG/DL BORDERLINE-HIGH RISK: 130-159 MG/DL 110-129 MG/DL HIGH RISK: >160 MG/DL >130 MG/DL *CHILDREN AND ADOLESCENTS REPRESENTS INDIVIDUALA AGED 2-19 YEARS EXCLUSIVE. Creatinine For GFR 1.20 mg/dL 0.70-1.30 Normal (applies to non -numeric results) [facility] ([facility] CHRONIC KIDNEY DISEASE STAGING PER NKF: MALE GFR INTERPRETATION: 20-49 YRS: >60 mL/min Normal 50-59 YRS: >56 mL/min Normal 60-69 YRS: >49 mL/min Normal 70-79 YRS: >42 mL/min Normal 80 and above >35 mL/min Normal FEMALE GRF INTERPRETATION: 20-39 YRS: >60 mL/min Normal 40-49 YRS: >58 mL/min Normal 50-59 YRS: >51 mL/min Normal 60-69 YRS: >45 mL/min Normal 70-79 YRS: >39 mL/min Normal 80 and above >32 mL/min NormalCLASSIFICATION CHOLESTEROL FOR ADULTS CHILDREN/ADOLESCENTS* DESIRABLE: <200 MG/DL <170 MG/DL BORDER-LINE HIGH RISK: 200-239 MG/DL 170-199 MG/DL HIGH RISK: >240 MG/DL >200 MG/DL CLASS. FOR PRIMARY LDL CHOL PREVENTION: LDL CHOL-CHILD/ADOLESCENTS* DESIRABLE: <130 MG/DL <110 MG/DL BORDERLINE-HIGH RISK: 130-159 MG/DL 110-129 MG/DL HIGH RISK: >160 MG/DL >130 MG/DL *CHILDREN AND ADOLESCENTS REPRESENTS INDIVIDUALA AGED 2-19 YEARS EXCLUSIVE. Glomerular Filtration Rate Laboratory test result Normal (applies to non- numeric results) [facility] ([facility] CHRONIC KIDNEY DISEASE STAGING PER NKF: MALE GFR INTERPRETATION: 20-49 YRS: >60 mL/min Normal 50-59 YRS: >56 mL/min Normal 60-69 YRS: >49 mL/min Normal 70-79 YRS: >42 mL/min Normal 80 and above >35 mL/min Normal FEMALE GRF INTERPRETATION: 20-39 YRS: >60 mL/min Normal 40-49 YRS: >58 mL/min Normal 50-59 YRS: >51 mL/min Normal 60-69 YRS: >45 mL/min Normal 70-79 YRS: >39 mL/min Normal 80 and above >32 mL/min NormalCLASSIFICATION CHOLESTEROL FOR ADULTS CHILDREN/ADOLESCENTS* DESIRABLE: <200 MG/DL <170 MG/DL BORDER-LINE HIGH RISK: 200-239 MG/DL 170-199 MG/DL HIGH RISK: >240 MG/DL >200 MG/DL CLASS. FOR PRIMARY LDL CHOL PREVENTION: LDL CHOL-CHILD/ADOLESCENTS* DESIRABLE: <130 MG/DL <110 MG/DL BORDERLINE-HIGH RISK: 130-159 MG/DL 110-129 MG/DL HIGH RISK: >160 MG/DL >130 MG/DL *CHILDREN AND ADOLESCENTS REPRESENTS INDIVIDUALA AGED 2-19 YEARS EXCLUSIVE. Sodium Level 140 meq/L 136-145 Normal (applies to non-numeric res ults) [facility] ([facility] CHRONIC KIDNEY DISEASE STAGING PER NKF: MALE GFR INTERPRETATION: 20-49 YRS: >60 mL/min Normal 50-59 YRS: >56 mL/min Normal 60-69 YRS: >49 mL/min Normal 70-79 YRS: >42 mL/min Normal 80 and above >35 mL/min Normal FEMALE GRF INTERPRETATION: 20-39 YRS: >60 mL/min Normal 40-49 YRS: >58 mL/min Normal 50-59 YRS: >51 mL/min Normal 60-69 YRS: >45 mL/min Normal 70-79 YRS: >39 mL/min Normal 80 and above >32 mL/min NormalCLASSIFICATION CHOLESTEROL FOR ADULTS CHILDREN/ADOLESCENTS* DESIRABLE: <200 MG/DL <170 MG/DL BORDER-LINE HIGH RISK: 200-239 MG/DL 170-199 MG/DL HIGH RISK: >240 MG/DL >200 MG/DL CLASS. FOR PRIMARY LDL CHOL PREVENTION: LDL CHOL-CHILD/ADOLESCENTS* DESIRABLE: <130 MG/DL <110 MG/DL BORDERLINE-HIGH RISK: 130-159 MG/DL 110-129 MG/DL HIGH RISK: >160 MG/DL >130 MG/DL *CHILDREN AND ADOLESCENTS REPRESENTS INDIVIDUALA AGED 2-19 YEARS EXCLUSIVE. Potassium Serum 5.1 meq/L 3.5-5.1 Normal (applies to non-numeric results) [facility] ([facility] CHRONIC KIDNEY DISEASE STAGING PER NKF: MALE GFR INTERPRETATION: 20-49 YRS: >60 mL/min Normal 50-59 YRS: >56 mL/min Normal 60-69 YRS: >49 mL/min Normal 70-79 YRS: >42 mL/min Normal 80 and above >35 mL/min Normal FEMALE GRF INTERPRETATION: 20-39 YRS: >60 mL/min Normal 40-49 YRS: >58 mL/min Normal 50-59 YRS: >51 mL/min Normal 60-69 YRS: >45 mL/min Normal 70-79 YRS: >39 mL/min Normal 80 and above >32 mL/min NormalCLASSIFICATION CHOLESTEROL FOR ADULTS CHILDREN/ADOLESCENTS* DESIRABLE: <200 MG/DL <170 MG/DL BORDER-LINE HIGH RISK: 200-239 MG/DL 170-199 MG/DL HIGH RISK: >240 MG/DL >200 MG/DL CLASS. FOR PRIMARY LDL CHOL PREVENTION: LDL CHOL-CHILD/ADOLESCENTS* DESIRABLE: <130 MG/DL <110 MG/DL BORDERLINE-HIGH RISK: 130-159 MG/DL 110-129 MG/DL HIGH RISK: >160 MG/DL >130 MG/DL *CHILDREN AND ADOLESCENTS REPRESENTS INDIVIDUALA AGED 2-19 YEARS EXCLUSIVE. Carbon Dioxide Level 31 meq/L 21-32 Normal (applies to non-num ashley results) [facility] ([facility] CHRONIC KIDNEY DISEASE STAGING PER NKF: MALE GFR INTERPRETATION: 20-49 YRS: >60 mL/min Normal 50-59 YRS: >56 mL/min Normal 60-69 YRS: >49 mL/min Normal 70-79 YRS: >42 mL/min Normal 80 and above >35 mL/min Normal FEMALE GRF INTERPRETATION: 20-39 YRS: >60 mL/min Normal 40-49 YRS: >58 mL/min Normal 50-59 YRS: >51 mL/min Normal 60-69 YRS: >45 mL/min Normal 70-79 YRS: >39 mL/min Normal 80 and above >32 mL/min NormalCLASSIFICATION CHOLESTEROL FOR ADULTS CHILDREN/ADOLESCENTS* DESIRABLE: <200 MG/DL <170 MG/DL BORDER-LINE HIGH RISK: 200-239 MG/DL 170-199 MG/DL HIGH RISK: >240 MG/DL >200 MG/DL CLASS. FOR PRIMARY LDL CHOL PREVENTION: LDL CHOL-CHILD/ADOLESCENTS* DESIRABLE: <130 MG/DL <110 MG/DL BORDERLINE-HIGH RISK: 130-159 MG/DL 110-129 MG/DL HIGH RISK: >160 MG/DL >130 MG/DL *CHILDREN AND ADOLESCENTS REPRESENTS INDIVIDUALA AGED 2-19 YEARS EXCLUSIVE. Chloride Level 108 meq/L 98-107 Above high normal [facility] ([facility] CHRONIC KIDNEY DISEASE STAGING PER NKF: MALE GFR INTERPRETATION: 20-49 YRS: >60 mL/min Normal 50-59 YRS: >56 mL/min Normal 60-69 YRS: >49 mL/min Normal 70-79 YRS: >42 mL/min Normal 80 and above >35 mL/min Normal FEMALE GRF INTERPRETATION: 20-39 YRS: >60 mL/min Normal 40-49 YRS: >58 mL/min Normal 50-59 YRS: >51 mL/min Normal 60-69 YRS: >45 mL/min Normal 70-79 YRS: >39 mL/min Normal 80 and above >32 mL/min NormalCLASSIFICATION CHOLESTEROL FOR ADULTS CHILDREN/ADOLESCENTS* DESIRABLE: <200 MG/DL <170 MG/DL BORDER-LINE HIGH RISK: 200-239 MG/DL 170-199 MG/DL HIGH RISK: >240 MG/DL >200 MG/DL CLASS. FOR PRIMARY LDL CHOL PREVENTION: LDL CHOL-CHILD/ADOLESCENTS* DESIRABLE: <130 MG/DL <110 MG/DL BORDERLINE-HIGH RISK: 130-159 MG/DL 110-129 MG/DL HIGH RISK: >160 MG/DL >130 MG/DL *CHILDREN AND ADOLESCENTS REPRESENTS INDIVIDUALA AGED 2-19 YEARS EXCLUSIVE. Anion Gap 1 meq/L 8-16 Below low normal [facility] ( [facility] CHRONIC KIDNEY DISEASE STAGING PER NKF: MALE GFR INTERPRETATION: 20-49 YRS: >60 mL/min Normal 50-59 YRS: >56 mL/min Normal 60-69 YRS: >49 mL/min Normal 70-79 YRS: >42 mL/min Normal 80 and above >35 mL/min Normal FEMALE GRF INTERPRETATION: 20-39 YRS: >60 mL/min Normal 40-49 YRS: >58 mL/min Normal 50-59 YRS: >51 mL/min Normal 60-69 YRS: >45 mL/min Normal 70-79 YRS: >39 mL/min Normal 80 and above >32 mL/min NormalCLASSIFICATION CHOLESTEROL FOR ADULTS CHILDREN/ADOLESCENTS* DESIRABLE: <200 MG/DL <170 MG/DL BORDER-LINE HIGH RISK: 200-239 MG/DL 170-199 MG/DL HIGH RISK: >240 MG/DL >200 MG/DL CLASS. FOR PRIMARY LDL CHOL PREVENTION: LDL CHOL-CHILD/ADOLESCENTS* DESIRABLE: <130 MG/DL <110 MG/DL BORDERLINE-HIGH RISK: 130-159 MG/DL 110-129 MG/DL HIGH RISK: >160 MG/DL >130 MG/DL *CHILDREN AND ADOLESCENTS REPRESENTS INDIVIDUALA AGED 2-19 YEARS EXCLUSIVE. Calcium Level 9.6 mg/dL 8.8-10.2 Normal (applies to non-numeric re sults) [facility] ([facility] CHRONIC KIDNEY DISEASE STAGING PER NKF: MALE GFR INTERPRETATION: 20-49 YRS: >60 mL/min Normal 50-59 YRS: >56 mL/min Normal 60-69 YRS: >49 mL/min Normal 70-79 YRS: >42 mL/min Normal 80 and above >35 mL/min Normal FEMALE GRF INTERPRETATION: 20-39 YRS: >60 mL/min Normal 40-49 YRS: >58 mL/min Normal 50-59 YRS: >51 mL/min Normal 60-69 YRS: >45 mL/min Normal 70-79 YRS: >39 mL/min Normal 80 and above >32 mL/min NormalCLASSIFICATION CHOLESTEROL FOR ADULTS CHILDREN/ADOLESCENTS* DESIRABLE: <200 MG/DL <170 MG/DL BORDER-LINE HIGH RISK: 200-239 MG/DL 170-199 MG/DL HIGH RISK: >240 MG/DL >200 MG/DL CLASS. FOR PRIMARY LDL CHOL PREVENTION: LDL CHOL-CHILD/ADOLESCENTS* DESIRABLE: <130 MG/DL <110 MG/DL BORDERLINE-HIGH RISK: 130-159 MG/DL 110-129 MG/DL HIGH RISK: >160 MG/DL >130 MG/DL *CHILDREN AND ADOLESCENTS REPRESENTS INDIVIDUALA AGED 2-19 YEARS EXCLUSIVE. Ast/Sgot 27 U/L 7-37 Normal (applies to non-numeric resul ts) [facility] ([facility] CHRONIC KIDNEY DISEASE STAGING PER NKF: MALE GFR INTERPRETATION: 20-49 YRS: >60 mL/min Normal 50-59 YRS: >56 mL/min Normal 60-69 YRS: >49 mL/min Normal 70-79 YRS: >42 mL/min Normal 80 and above >35 mL/min Normal FEMALE GRF INTERPRETATION: 20-39 YRS: >60 mL/min Normal 40-49 YRS: >58 mL/min Normal 50-59 YRS: >51 mL/min Normal 60-69 YRS: >45 mL/min Normal 70-79 YRS: >39 mL/min Normal 80 and above >32 mL/min NormalCLASSIFICATION CHOLESTEROL FOR ADULTS CHILDREN/ADOLESCENTS* DESIRABLE: <200 MG/DL <170 MG/DL BORDER-LINE HIGH RISK: 200-239 MG/DL 170-199 MG/DL HIGH RISK: >240 MG/DL >200 MG/DL CLASS. FOR PRIMARY LDL CHOL PREVENTION: LDL CHOL-CHILD/ADOLESCENTS* DESIRABLE: <130 MG/DL <110 MG/DL BORDERLINE-HIGH RISK: 130-159 MG/DL 110-129 MG/DL HIGH RISK: >160 MG/DL >130 MG/DL *CHILDREN AND ADOLESCENTS REPRESENTS INDIVIDUALA AGED 2-19 YEARS EXCLUSIVE. Alkaline Phosphatase 157 U/L 45-117 Above high normal [facility] ([facility] CHRONIC KIDNEY DISEASE STAGING PER NKF: MALE GFR INTERPRETATION: 20-49 YRS: >60 mL/min Normal 50-59 YRS: >56 mL/min Normal 60-69 YRS: >49 mL/min Normal 70-79 YRS: >42 mL/min Normal 80 and above >35 mL/min Normal FEMALE GRF INTERPRETATION: 20-39 YRS: >60 mL/min Normal 40-49 YRS: >58 mL/min Normal 50-59 YRS: >51 mL/min Normal 60-69 YRS: >45 mL/min Normal 70-79 YRS: >39 mL/min Normal 80 and above >32 mL/min NormalCLASSIFICATION CHOLESTEROL FOR ADULTS CHILDREN/ADOLESCENTS* DESIRABLE: <200 MG/DL <170 MG/DL BORDER-LINE HIGH RISK: 200-239 MG/DL 170-199 MG/DL HIGH RISK: >240 MG/DL >200 MG/DL CLASS. FOR PRIMARY LDL CHOL PREVENTION: LDL CHOL-CHILD/ADOLESCENTS* DESIRABLE: <130 MG/DL <110 MG/DL BORDERLINE-HIGH RISK: 130-159 MG/DL 110-129 MG/DL HIGH RISK: >160 MG/DL >130 MG/DL *CHILDREN AND ADOLESCENTS REPRESENTS INDIVIDUALA AGED 2-19 YEARS EXCLUSIVE. Alt/SGPT 55 U/L 12- Normal (applies to non-numeric resul ts) [facility] ([facility] CHRONIC KIDNEY DISEASE STAGING PER NKF: MALE GFR INTERPRETATION: 20-49 YRS: >60 mL/min Normal 50-59 YRS: >56 mL/min Normal 60-69 YRS: >49 mL/min Normal 70-79 YRS: >42 mL/min Normal 80 and above >35 mL/min Normal FEMALE GRF INTERPRETATION: 20-39 YRS: >60 mL/min Normal 40-49 YRS: >58 mL/min Normal 50-59 YRS: >51 mL/min Normal 60-69 YRS: >45 mL/min Normal 70-79 YRS: >39 mL/min Normal 80 and above >32 mL/min NormalCLASSIFICATION CHOLESTEROL FOR ADULTS CHILDREN/ADOLESCENTS* DESIRABLE: <200 MG/DL <170 MG/DL BORDER-LINE HIGH RISK: 200-239 MG/DL 170-199 MG/DL HIGH RISK: >240 MG/DL >200 MG/DL CLASS. FOR PRIMARY LDL CHOL PREVENTION: LDL CHOL-CHILD/ADOLESCENTS* DESIRABLE: <130 MG/DL <110 MG/DL BORDERLINE-HIGH RISK: 130-159 MG/DL 110-129 MG/DL HIGH RISK: >160 MG/DL >130 MG/DL *CHILDREN AND ADOLESCENTS REPRESENTS INDIVIDUALA AGED 2-19 YEARS EXCLUSIVE. Bilirubin,Total 0.3 mg/dL 0.2-1.0 Normal (applies to non-numeric results) [facility] ([facility] CHRONIC KIDNEY DISEASE STAGING PER NKF: MALE GFR INTERPRETATION: 20-49 YRS: >60 mL/min Normal 50-59 YRS: >56 mL/min Normal 60-69 YRS: >49 mL/min Normal 70-79 YRS: >42 mL/min Normal 80 and above >35 mL/min Normal FEMALE GRF INTERPRETATION: 20-39 YRS: >60 mL/min Normal 40-49 YRS: >58 mL/min Normal 50-59 YRS: >51 mL/min Normal 60-69 YRS: >45 mL/min Normal 70-79 YRS: >39 mL/min Normal 80 and above >32 mL/min NormalCLASSIFICATION CHOLESTEROL FOR ADULTS CHILDREN/ADOLESCENTS* DESIRABLE: <200 MG/DL <170 MG/DL BORDER-LINE HIGH RISK: 200-239 MG/DL 170-199 MG/DL HIGH RISK: >240 MG/DL >200 MG/DL CLASS. FOR PRIMARY LDL CHOL PREVENTION: LDL CHOL-CHILD/ADOLESCENTS* DESIRABLE: <130 MG/DL <110 MG/DL BORDERLINE-HIGH RISK: 130-159 MG/DL 110-129 MG/DL HIGH RISK: >160 MG/DL >130 MG/DL *CHILDREN AND ADOLESCENTS REPRESENTS INDIVIDUALA AGED 2-19 YEARS EXCLUSIVE. Total Protein 6.7 GM/DL 6.4-8.2 Normal (applies to non-numeric re sults) [facility] ([facility] CHRONIC KIDNEY DISEASE STAGING PER NKF: MALE GFR INTERPRETATION: 20-49 YRS: >60 mL/min Normal 50-59 YRS: >56 mL/min Normal 60-69 YRS: >49 mL/min Normal 70-79 YRS: >42 mL/min Normal 80 and above >35 mL/min Normal FEMALE GRF INTERPRETATION: 20-39 YRS: >60 mL/min Normal 40-49 YRS: >58 mL/min Normal 50-59 YRS: >51 mL/min Normal 60-69 YRS: >45 mL/min Normal 70-79 YRS: >39 mL/min Normal 80 and above >32 mL/min NormalCLASSIFICATION CHOLESTEROL FOR ADULTS CHILDREN/ADOLESCENTS* DESIRABLE: <200 MG/DL <170 MG/DL BORDER-LINE HIGH RISK: 200-239 MG/DL 170-199 MG/DL HIGH RISK: >240 MG/DL >200 MG/DL CLASS. FOR PRIMARY LDL CHOL PREVENTION: LDL CHOL-CHILD/ADOLESCENTS* DESIRABLE: <130 MG/DL <110 MG/DL BORDERLINE-HIGH RISK: 130-159 MG/DL 110-129 MG/DL HIGH RISK: >160 MG/DL >130 MG/DL *CHILDREN AND ADOLESCENTS REPRESENTS INDIVIDUALA AGED 2-19 YEARS EXCLUSIVE. Albumin 3.6 GM/DL 3.2-5.2 Normal (applies to non-numeric resul ts) [facility] ([facility] CHRONIC KIDNEY DISEASE STAGING PER NKF: MALE GFR INTERPRETATION: 20-49 YRS: >60 mL/min Normal 50-59 YRS: >56 mL/min Normal 60-69 YRS: >49 mL/min Normal 70-79 YRS: >42 mL/min Normal 80 and above >35 mL/min Normal FEMALE GRF INTERPRETATION: 20-39 YRS: >60 mL/min Normal 40-49 YRS: >58 mL/min Normal 50-59 YRS: >51 mL/min Normal 60-69 YRS: >45 mL/min Normal 70-79 YRS: >39 mL/min Normal 80 and above >32 mL/min NormalCLASSIFICATION CHOLESTEROL FOR ADULTS CHILDREN/ADOLESCENTS* DESIRABLE: <200 MG/DL <170 MG/DL BORDER-LINE HIGH RISK: 200-239 MG/DL 170-199 MG/DL HIGH RISK: >240 MG/DL >200 MG/DL CLASS. FOR PRIMARY LDL CHOL PREVENTION: LDL CHOL-CHILD/ADOLESCENTS* DESIRABLE: <130 MG/DL <110 MG/DL BORDERLINE-HIGH RISK: 130-159 MG/DL 110-129 MG/DL HIGH RISK: >160 MG/DL >130 MG/DL *CHILDREN AND ADOLESCENTS REPRESENTS INDIVIDUALA AGED 2-19 YEARS EXCLUSIVE. Albumin/Globulin Ratio 1.2 Normal (applies to non-n umeric results) [facility] ([facility] CHRONIC KIDNEY DISEASE STAGING PER NKF: MALE GFR INTERPRETATION: 20-49 YRS: >60 mL/min Normal 50-59 YRS: >56 mL/min Normal 60-69 YRS: >49 mL/min Normal 70-79 YRS: >42 mL/min Normal 80 and above >35 mL/min Normal FEMALE GRF INTERPRETATION: 20-39 YRS: >60 mL/min Normal 40-49 YRS: >58 mL/min Normal 50-59 YRS: >51 mL/min Normal 60-69 YRS: >45 mL/min Normal 70-79 YRS: >39 mL/min Normal 80 and above >32 mL/min NormalCLASSIFICATION CHOLESTEROL FOR ADULTS CHILDREN/ADOLESCENTS* DESIRABLE: <200 MG/DL <170 MG/DL BORDER-LINE HIGH RISK: 200-239 MG/DL 170-199 MG/DL HIGH RISK: >240 MG/DL >200 MG/DL CLASS. FOR PRIMARY LDL CHOL PREVENTION: LDL CHOL-CHILD/ADOLESCENTS* DESIRABLE: <130 MG/DL <110 MG/DL BORDERLINE-HIGH RISK: 130-159 MG/DL 110-129 MG/DL HIGH RISK: >160 MG/DL >130 MG/DL *CHILDREN AND ADOLESCENTS REPRESENTS INDIVIDUALA AGED 2-19 YEARS EXCLUSIVE. ID Date Data Source [id number] 02/06/2021 11:04:00 AM EDT [facility] ([facility] Name Value Range Interpretation Code Description Data Margo rce(s) Supporting Document(s) Estimated Average Glucose 186 mg/dL 60-110 Above high normal [facility] ([facility] CHRONIC KIDNEY DISEASE STAGING PER NKF: MALE GFR INTERPRETATION: 20-49 YRS: >60 mL/min Normal 50-59 YRS: >56 mL/min Normal 60-69 YRS: >49 mL/min Normal 70-79 YRS: >42 mL/min Normal 80 and above >35 mL/min Normal FEMALE GRF INTERPRETATION: 20-39 YRS: >60 mL/min Normal 40-49 YRS: >58 mL/min Normal 50-59 YRS: >51 mL/min Normal 60-69 YRS: >45 mL/min Normal 70-79 YRS: >39 mL/min Normal 80 and above >32 mL/min NormalCLASSIFICATION CHOLESTEROL FOR ADULTS CHILDREN/ADOLESCENTS* DESIRABLE: <200 MG/DL <170 MG/DL BORDER-LINE HIGH RISK: 200-239 MG/DL 170-199 MG/DL HIGH RISK: >240 MG/DL >200 MG/DL CLASS. FOR PRIMARY LDL CHOL PREVENTION: LDL CHOL-CHILD/ADOLESCENTS* DESIRABLE: <130 MG/DL <110 MG/DL BORDERLINE-HIGH RISK: 130-159 MG/DL 110-129 MG/DL HIGH RISK: >160 MG/DL >130 MG/DL *CHILDREN AND ADOLESCENTS REPRESENTS INDIVIDUALA AGED 2-19 YEARS EXCLUSIVE. Hemoglobin A1c 8.1 % Normal (applies to non-numeric r esults) [facility] ([facility] CHRONIC KIDNEY DISEASE STAGING PER NKF: MALE GFR INTERPRETATION: 20-49 YRS: >60 mL/min Normal 50-59 YRS: >56 mL/min Normal 60-69 YRS: >49 mL/min Normal 70-79 YRS: >42 mL/min Normal 80 and above >35 mL/min Normal FEMALE GRF INTERPRETATION: 20-39 YRS: >60 mL/min Normal 40-49 YRS: >58 mL/min Normal 50-59 YRS: >51 mL/min Normal 60-69 YRS: >45 mL/min Normal 70-79 YRS: >39 mL/min Normal 80 and above >32 mL/min NormalCLASSIFICATION CHOLESTEROL FOR ADULTS CHILDREN/ADOLESCENTS* DESIRABLE: <200 MG/DL <170 MG/DL BORDER-LINE HIGH RISK: 200-239 MG/DL 170-199 MG/DL HIGH RISK: >240 MG/DL >200 MG/DL CLASS. FOR PRIMARY LDL CHOL PREVENTION: LDL CHOL-CHILD/ADOLESCENTS* DESIRABLE: <130 MG/DL <110 MG/DL BORDERLINE-HIGH RISK: 130-159 MG/DL 110-129 MG/DL HIGH RISK: >160 MG/DL >130 MG/DL *CHILDREN AND ADOLESCENTS REPRESENTS INDIVIDUALA AGED 2-19 YEARS EXCLUSIVE. ID Date Data Source [id number] 02/06/2021 11:04:00 AM EDT [facility] ([facility]) Name Value Range Interpretation Code Description Data Margo rce(s) Supporting Document(s) Hemoglobin A1c 8.1 % [facility] ([facility]) <content>REFERENCE RANGES:</content><br/ ><content></content>
<content><=5.6% NORMAL</content>
<content>5.7-6.4% SUGGESTS IMPAIRED GLUCOSE METABOLISM/PREDIABETIC</content>
<content>>= 6.5% ABNORMAL</content>
<content></content> Estimated Average Glucose 186 mg/dL 60-110 [facility] ([facility]) ID Date Data Source [id number] 02/06/2021 11:04:00 AM EDT [facility] ([facility] Name Value Range Interpretation Code Description Data Margo rce(s) Supporting Document(s) Cholesterol Level 142 mg/dL [facility] ([facility]) Triglycerides Level 66 mg/dL [facility] ([facility]) LDL Cholesterol 73 mg/dL [facility] ([facility]) HDL Cholesterol 56 mg/dL [facility] ([facility]) Cholesterol Risk Ratio 2.535 [facility] ([facility]) Non-HDL-C 86 mg/dL [facility] ID Date Data Source [id number] 02/06/2021 11:04:00 AM EDT [facility] [place] [place] Value Range Interpretation Code Description Data Margo rce(s) Supporting Document(s) Glucose, Fasting 244 mg/dL 70-100 [facility] ([facility]) Blood Urea Nitrogen 22 mg/dL 7-18 [facility] ([facility]) Creatinine For GFR 1.20 mg/dL 0.70-1.30 [facility] ([facility]) Glomerular Filtration Rate Laboratory test result [facility] ([facility]) <content>Units are mL/min/1.73 m2</content>
<content></content>
<content>Chronic Kidney Disease Staging per NKF:</content>
<content></content>
<content>Stage I & II GFR >=60 Normal to Mildly Decreased</content>
<content>Stage III GFR 30-59 Moderately Decreased</content>
<content>Stage IV GFR 15-29 Severely Decreased</content>
<content>Stage V GFR <15 Very Little GFR Left</content>
<content>ESRD GFR <15 on SCRUM COACH</content>
<content></content> Sodium Level 140 meq/L 136-145 [facility] ([facility]) Chloride Level 108 meq/L 98-107 [facility] ([facility]) Potassium Serum 5.1 meq/L 3.5-5.1 [facility] ([facility]) Calcium Level 9.6 mg/dL 8.8-10.2 [facility] ([facility]) Carbon Dioxide Level 31 meq/L 21-32 [facility] ([facility]) Anion Gap 1 meq/L 8-16 [facility] ([facility]) Alt/SGPT 55 U/L 12-78 [facility] ([facility] Ast/Sgot 27 U/L 7-37 [facility] ([facility] Alkaline Phosphatase 157 U/L 45-117 [facility] ([facility]) Bilirubin,Total 0.3 mg/dL 0.2-1.0 [facility] ([facility]) Albumin 3.6 GM/DL 3.2-5.2 [facility] ([facility] Total Protein 6.7 GM/DL 6.4-8.2 [facility] ([facility]) Albumin/Globulin Ratio 1.2 [facility] ([facility]) ID Date Data Source [id number] 12/08/2020 04:16:00 PM EST [facility] ([facility]) Name Value Range Interpretation Code Description Data Margo rce(s) Supporting Document(s) Magnesium Level 2.2 [facility] ([facility]) ID Date Data Source [id number] 12/08/2020 04:16:00 PM EST [facility] ([facility]) Name Value Range Interpretation Code Description Data Margo rce(s) Supporting Document(s) Blood Urea Nitrogen 31 [facility] ([facility]) Glucose 103 [facility] ([facility] Glomerular filtration rate/1.73 sq M.pre dicted [Volume Rate/Area] in Serum or Plasma by Creatinine-based formula (MDRD) 55.9 [facility] Creatinine 1.37 [facility] ([facility]) Potassium 4.4 [facility] ([facility] Sodium 142 [facility] Carbon Dioxide 33 [facility] Calcium 9.7 [facility] Chloride 104 [facility] Phosphorus 3.6 [facility]) Albumin 3.7 [facility] ID Date Data Source [id number] 12/08/2020 04:16:00 PM EST [facility] ([facility] Name Value Range Interpretation Code Description Data Margo rce(s) Supporting Document(s) White Blood Count 7.3 [facility] Red Blood Count 4.55 [facility] Hematocrit 40.7 [facility] ([facility]) Platelets 233 [facility] Hemoglobin 13.3 [facility] ([facility]) ID Date Data Source [id number] 11/12/2020 10:00:00 AM EST [facility] Name Value Range Interpretation Code Description Data Margo rce(s) Supporting Document(s) SARS coronavirus 2 RNA Not Detected [facility] This lab was ordered by [facility] and reported by [facility]. ID Date Data Source [id number] 11/05/2020 11:47:00 AM EST [facility] ([facility] Name Value Range Interpretation Code Description Data Margo rce(s) Supporting Document(s) Triglycerides 110 [facility] Cholesterol 155 [facility]) HDL 83 [facility] Cholesterol in LDL [Mass/volume] in Serum or Plasma by calculation 50 [facility] ([facility]) Chol/HDL Ratio 3.100 [facility] ([facility] ID Date Data Source [id number] 11/05/2020 06:12:00 AM EST [facility] ([facility] Name Value Range Interpretation Code Description Data Margo rce(s) Supporting Document(s) Cholesterol Level 155 mg/dL Normal (applies to non-numeri c results) [facility] ([facility] HDL Cholesterol 50 mg/dL Normal (applies to non-numeric results) [facility] ([facility] Triglycerides Level 110 mg/dL Normal (applies to non-nume clemente results) [facility] ([facility] LDL Cholesterol 83 mg/dL Normal (applies to non-numeric results) [facility] ([facility] Non-HDL-C 105 mg/dL Normal (applies to non-numeric resul ts) [facility] ([facility] Cholesterol Risk Ratio 3.100 Normal (applies to non-n umeric results) [facility] ([facility] ID Date Data Source [id number] 11/05/2020 06:12:00 AM EST [facility] ([facility] Name Value Range Interpretation Code Description Data Margo rce(s) Supporting Document(s) Glucose, Fasting 241 mg/dL 70-100 Above high normal M [facility] ([facility] Glomerular Filtration Rate 41.3 Below low normal [facility] ([facility] <content>Units are mL/min/1.73 m2</content>
<content></content>
<content>Chronic Kidney Disease Staging per [facility]:</content>
<content></content>
<content>Stage I & II GFR >=60 Normal to Mildly Decreased</content>
<content>Stage III GFR 30- 59 Moderately Decreased</content>
<content>Stage IV GFR 15-29 Severely Decreased</content>
<content>Stage V GFR <15 Very Little GFR Left</content>
<content>ESRD GFR <15 on SCRUM COACH</content>
<content></content> Creatinine For GFR 1.78 mg/dL 0.70-1.30 Above high normal [facility] ([facility] Blood Urea Nitrogen 39 mg/dL 7-18 Above high normal [facility] ([facility] Sodium Level 138 meq/L 136-145 Normal (applies to non-numeric res ults) [facility] ([facility] Potassium Serum 4.4 meq/L 3.5-5.1 Normal (applies to non-numeric results) [facility] ([facility] Chloride Level 103 meq/L 98-107 Normal (applies to non-numeric r esults) [facility] ([facility] Carbon Dioxide Level 30 meq/L 21-32 Normal (applies to non-num ashley results) [facility] ([facility] Ast/Sgot 21 U/L 7-37 Normal (applies to non-numeric resul ts) [facility] ([facility] Calcium Level 8.9 mg/dL 8.8-10.2 Normal (applies to non-numeric re sults) [facility] ([facility] Anion Gap 5 meq/L 8-16 Below low normal [facility] ( [facility] Alkaline Phosphatase 162 U/L 45-117 Above high normal [facility] ([facility] Alt/SGPT 38 U/L 12-78 Normal (applies to non-numeric resul ts) [facility] ([facility] Bilirubin,Total 0.2 mg/dL 0.2-1.0 Normal (applies to non-numeric results) [facility] ([facility] Albumin 3.6 GM/DL 3.2-5.2 Normal (applies to non-numeric resul ts) [facility] ([facility] Total Protein 7.2 GM/DL 6.4-8.2 Normal (applies to non-numeric re sults) [facility] ([facility] Albumin/Globulin Ratio 1.0 Normal (applies to non-n umeric results) [facility] ([facility] ID Date Data Source [id number] 11/05/2020 06:12:00 AM EST [facility] ([facility] Name Value Range Interpretation Code Description Data Margo rce(s) Supporting Document(s) Estimated Average Glucose 200 mg/dL 60-110 Above high normal [facility] ([facility] Hemoglobin A1c 8.6 % Normal (applies to non-numeric r esults) [facility] ([facility] <content>REFERENCE RANGES:</content><br/ ><content></content>
<content><=5.6% NORMAL</content>
<content>5.7-6.4% SUGGESTS IMPAIRED GLUCOSE METABOLISM/PREDIABETIC</content>
<content>>= 6.5% ABNORMAL</content>
<content></content> ID Date Data Source [id number] 11/05/2020 06:12:00 AM EST [facility] ([facility] Name Value Range Interpretation Code Description Data Margo rce(s) Supporting Document(s) White Blood Count 8.5 10 4.0-10.0 Normal (applies to non-numeri c results) [facility] ([facility] Red Blood Count 4.59 10 4.30-6.10 Normal (applies to non-numeric results) [facility] ([facility] Hemoglobin 13.6 g/dL 13.5-17.5 Normal (applies to non-numeric resul ts) [facility] ([facility] Hematocrit 41.6 % 42.0-52.0 Below low normal [facility] ( [facility] Mean Corpuscular Volume 90.6 fl 80.0-96.0 Normal ( applies to non-numeric results) [facility] ([facility] ) Mean Corpuscular HGB Conc 32.7 g/dL 32.0-36.5 Normal (applies to non-numeric results) [facility] ([facility] ) Mean Corpuscular Hemoglobin 29.6 pg 27.0-33.0 Norm al (applies to non-numeric results) [facility] ([facility] ) Red Cell Distribution Width 12.1 % 11.5-14.5 Norm al (applies to non-numeric results) [facility] ([facility] ) Platelet Count, Automated 238 10 150-450 Normal (applies to non-numeric results) [facility] ([facility] ) Nucleated Red Blood Cell % 0.0 % 0-0 Normal (applies to n on-numeric results) [facility] ([facility] ID Date Data Source [id number] 09/02/2020 02:53:00 PM EDT [facility] ([facility] Name Value Range Interpretation Code Description Data Margo rce(s) Supporting Document(s) Urine Culture, Routine Laboratory test result Ab normal (applies to non-numeric results) [facility] ([facility] ) SRC:URINE Antimicrobial Susceptibility Laboratory test result [facility] ([facility] SRC:URINE Bacteria identified in Urine by Culture Laboratory test result Abnormal (applies to non-numeric results) [facility] SRC:URINE ID Date Data Source [id number] 09/02/2020 02:51:00 PM EDT [facility] ([facility] Name Value Range Interpretation Code Description Data Margo rce(s) Supporting Document(s) Color Urine Laboratory test result M EDENT ([facility] Appearance of Urine Laboratory test result [facility] ([facility] Glucose Urine Laboratory test result [facility] ([facility] PH Urine 5.0 5.0-8.0 [facility] Specific [place] 1.015 1.00-1.03 [facility] ([facility] Bilirubin.total [Presence] in Urine by Test strip Laboratory test res ult [facility] ([facility] Ketones Laboratory test result [facility] ([facility] Blood Urine Laboratory test result Above high normal [facility] ([facility] Protein Urine Laboratory test result Above high normal [facility] ([facility] Urobilinogen 0.2 EU/dl 0.2-1.0 [facility] ([facility] Leukocytes Laboratory test result Above high normal [facility] ([facility] Nitrite Laboratory test result [facility] ([facility] ID Date Data Source [id number] 08/29/2020 10:01:00 AM EDT [facility] ([facility] Name Value Range Interpretation Code Description Data Margo rce(s) Supporting Document(s) Triglycerides Level 69 mg/dL Normal (applies to non-nume clemente results) [facility] ([facility] Cholesterol Level 140 mg/dL Normal (applies to non-numeri c results) [facility] ([facility] LDL Cholesterol 77 mg/dL Normal (applies to non-numeric results) [facility] ([facility] HDL Cholesterol 49 mg/dL Normal (applies to non-numeric results) [facility] ([facility] Cholesterol Risk Ratio 2.857 Normal (applies to non-n umeric results) [facility] ([facility] Non-HDL-C 91 mg/dL Normal (applies to non-numeric resul ts) [facility] ([facility] ID Date Data Source [id number] 08/29/2020 10:01:00 AM EDT [facility] ([facility] Name Value Range Interpretation Code Description Data Margo rce(s) Supporting Document(s) Glucose, Fasting 84 mg/dL 70-100 Normal (applies to non-numeric results) [facility] ([facility] Blood Urea Nitrogen 31 mg/dL 7-18 Above high normal [facility] ([facility] Creatinine For GFR 1.30 mg/dL 0.70-1.30 Normal (applies to non -numeric results) [facility] ([facility] Glomerular Filtration Rate 59.4 Normal (applies to n on-numeric results) [facility] ([facility] <content>Units are mL/min/1.73 m2</content>
<content></content>
<content>Chronic Kidney Disease Staging per NKF:</content>
<content></content>
<content>Stage I & II GFR >=60 Normal to Mildly Decreased</content>
<content>Stage III GFR 30- 59 Moderately Decreased</content>
<content>Stage IV GFR 15-29 Severely Decreased</content>
<content>Stage V GFR <15 Very Little GFR Left</content>
<content>ESRD GFR <15 on SCRUM COACH</content>
<content></content> Sodium Level 142 meq/L 136-145 Normal (applies to non-numeric res ults) [facility] ([facility] Chloride Level 109 meq/L 98-107 Above high normal [facility] ([facility] Potassium Serum 4.5 meq/L 3.5-5.1 Normal (applies to non-numeric results) [facility] ([facility] Anion Gap 2 meq/L 8-16 Below low normal [facility] ( [facility] Carbon Dioxide Level 31 meq/L 21-32 Normal (applies to non-num ashley results) [facility] ([facility] Ast/Sgot 23 U/L 7-37 Normal (applies to non-numeric resul ts) [facility] ([facility] Alt/SGPT 39 U/L 12-78 Normal (applies to non-numeric resul ts) [facility] ([facility] Calcium Level 9.4 mg/dL 8.8-10.2 Normal (applies to non-numeric re sults) [facility] ([facility] Alkaline Phosphatase 129 U/L 45-117 Above high normal [facility] ([facility] Bilirubin,Total 0.3 mg/dL 0.2-1.0 Normal (applies to non-numeric results) [facility] ([facility] Albumin/Globulin Ratio 0.9 Normal (applies to non-n umeric results) [facility] ([facility] Albumin 3.2 GM/DL 3.2-5.2 Normal (applies to non-numeric resul ts) [facility] ([facility] Total Protein 6.7 GM/DL 6.4-8.2 Normal (applies to non-numeric re sults) [facility] ([facility] ID Date Data Source [id number] 08/29/2020 10:01:00 AM EDT [facility] ([facility] Name Value Range Interpretation Code Description Data Margo rce(s) Supporting Document(s) White Blood Count 7.0 10 4.0-10.0 Normal (applies to non-numeri c results) [facility] ([facility] Hemoglobin 13.2 g/dL 13.5-17.5 Below low normal [facility] ( [facility] Hematocrit 40.0 % 42.0-52.0 Below low normal [facility] ( [facility] Red Blood Count 4.42 10 4.30-6.10 Normal (applies to non-numeric results) [facility] ([facility] Mean Corpuscular Hemoglobin 29.9 pg 27.0-33.0 Norm al (applies to non-numeric results) [facility] ([facility] ) Mean Corpuscular Volume 90.5 fl 80.0-96.0 Normal ( applies to non-numeric results) [facility] ([facility] ) Platelet Count, Automated 299 10 150-450 Normal (applies to non-numeric results) [facility] ([facility] ) Red Cell Distribution Width 12.2 % 11.5-14.5 Norm al (applies to non-numeric results) [facility] ([facility] ) Mean Corpuscular HGB Conc 33.0 g/dL 32.0-36.5 Normal (applies to non-numeric results) [facility] ([facility] ) Nucleated Red Blood Cell % 0.0 % 0-0 Normal (applies to n on-numeric results) [facility] ([facility] ID Date Data Source [id number] 08/29/2020 10:01:00 AM EDT [facility] ([facility] Name Value Range Interpretation Code Description Data Margo rce(s) Supporting Document(s) Hemoglobin A1c 7.9 % Normal (applies to non-numeric r esults) [facility] ([facility] <content>REFERENCE RANGES:</content><br/ ><content></content>
<content><=5.6% NORMAL</content>
<content>5.7-6.4% SUGGESTS IMPAIRED GLUCOSE METABOLISM/PREDIABETIC</content>
<content>>= 6.5% ABNORMAL</content>
<content></content> Estimated Average Glucose 180 mg/dL 60-110 Above high normal [facility] ([facility] Procedure Social History Code Duration Value Status Description Data Source(s ) Smoking 10/07/2021 12:00:00 AM EST Patient is a former smoker completed Patient is a former smoker [facility] ([facility]) Smoking 03/17/2021 12:00:00 AM EDT Former Smoker completed Former Smoker eCW1 ([facility]) Vital Signs ID Date Data Source UNK Name Value Range Interpretation Code Description Data Source(s) Body weight 184.00 [lb_av] 184.00 [lb_av] MEDEN T ([facility]) Body height 66 [in_i] 66 [in_i] [facility] ([facility]) 5'6" Body mass index (BMI) [Ratio] 29.7 kg/m2 29.7 k g/m2 [facility] ([facility]) Heart rate 76 /min 76 /min [facility] ([facility]) Systolic blood pressure--sitting 131 mm[Hg] 131 mm[Hg] [facility] ([facility]) CBP large cuff, Ra Diastolic blood pressure--sitting 63 mm[Hg] 63 mm[Hg] [facility] ([facility]) CBP large cuff, Ra Oxygen saturation in Arterial blood by Pulse oximetry 98 % 98 % [facility] ([facility] Systolic blood pressure 140 mm[Hg] 140 mm[Hg] M EDENT ([facility] Diastolic blood pressure 82 mm[Hg] 82 mm[Hg] [facility] ([facility] Heart rate 68 /min 68 /min [facility] ([facility] Body temperature 97.5 [degF] 97.5 [degF] [facility] ([facility] Respiratory rate 16 /min 16 /min [facility] ( [facility] Body height 66 [in_i] 66 [in_i] [facility] ([facility] 5'6" Body mass index (BMI) [Ratio] 30.7 kg/m2 30.7 k g/m2 [facility] ([facility] Body weight 190.00 [lb_av] 190.00 [lb_av] MEDEN T ([facility] [place] body weight 142 [lb_av] 142 [lb_av] MED[facility] T ([facility] Body temperature 98.1 [degF] 98.1 [degF] [facility] ([facility]) Oral Respiratory rate 18 /min 18 /min [facility] ( [facility]) Oxygen saturation in Arterial blood by Pulse oximetry 98 % 98 % [facility] ([facility]) Body weight 189.00 [lb_av] 189.00 [lb_av] MEDEN T ([facility]) Heart rate 72 /min 72 /min [facility] ([facility]) Systolic blood pressure--sitting 138 mm[Hg] 138 mm[Hg] [facility] ([facility]) Diastolic blood pressure--sitting 64 mm[Hg] 64 mm[Hg] [facility] ([facility]) Body weight 85.730 kg 85.730 kg [facility] ([facility]) Body height 66 [in_i] 66 [in_i] [facility] ([facility]) 5'6" Body mass index (BMI) [Ratio] 30.5 kg/m2 30.5 k g/m2 [facility]) Body surface area Derived from formula 1.95 m2 1.95 m2 [facility] ([facility]) Body weight 187.00 [lb_av] 187.00 [lb_av] MED[facility] T ([facility] Heart rate 78 /min 78 /min [facility] ([facility] Respiratory rate 18 /min 18 /min [facility] ( [facility] [place] body weight 142 [lb_av] 142 [lb_av] MEDEN T ([facility] Body mass index (BMI) [Ratio] 30.2 kg/m2 30.2 k g/m2 [facility] ([facility] Oxygen saturation in Arterial blood by Pulse oximetry 97 % 97 % [facility] ([facility] Systolic blood pressure 128 mm[Hg] 128 mm[Hg] M EDENT ([facility] Diastolic blood pressure 68 mm[Hg] 68 mm[Hg] [facility] ([facility] Body temperature 98.3 [degF] 98.3 [degF] [facility] ([facility] Body height 66 [in_i] 66 [in_i] [facility] ([facility] 5'6" Body weight 188 [lb_av] 188 [lb_av] eCW1 ([facility]) Body height 66 [in_i] 66 [in_i] eCW1 ([facility]) Body mass index (BMI) [Ratio] 30.34 kg/m2 30.34 kg/m2 eCW1 ([facility]) Heart rate 75 /min 75 /min eCW1 ([facility]) Respiratory rate 18 /min 18 /min eCW1 ([facility]) Body temperature 97.4 [degF] 97.4 [degF] eCW1 ( [facility]) Systolic blood pressure 128 mm[Hg] 128 mm[Hg] e CW1 ([facility]) Diastolic blood pressure 72 mm[Hg] 72 mm[Hg] eCW1 ([facility]) Body mass index (BMI) [Ratio] 29.9 kg/m2 29.9 k g/m2 [facility] ([facility]) Diastolic blood pressure--sitting 72 mm[Hg] 72 mm[Hg] [facility] ([facility]) CMP, adult cuff/Ra Body weight 185.00 [lb_av] 185.00 [lb_av] MEDEN T ([facility]) Body height 66 [in_i] 66 [in_i] [facility] ([facility]) 5'6" Heart rate 65 /min 65 /min [facility] ([facility]) Systolic blood pressure--sitting 169 mm[Hg] 169 mm[Hg] [facility] ([facility]) CMP, adult cuff/Ra Body mass index (BMI) [Ratio] 30.0 kg/m2 30.0 k g/m2 [facility] ([facility] Systolic blood pressure 134 mm[Hg] 134 mm[Hg] M EDENT ([facility] Diastolic blood pressure 68 mm[Hg] 68 mm[Hg] [facility] ([facility] Body temperature 97.6 [degF] 97.6 [degF] [facility] ([facility] Heart rate 68 /min 68 /min [facility] ([facility] Respiratory rate 16 /min 16 /min [facility] ( [facility] Body height 66 [in_i] 66 [in_i] [facility] 5'6" Body weight 186.00 [lb_av] 186.00 [lb_av] MEDEN T ([facility] [place] body weight 142 [lb_av] 142 [lb_av] MEDEN T ([facility] Oxygen saturation in Arterial blood by Pulse oximetry 99 % 99 % [facility] ([facility] Heart rate 80 /min 80 /min [facility] ([facility] Respiratory rate 16 /min 16 /min [facility] ( [facility] Body height 66 [in_i] 66 [in_i] [facility] ([facility] 5'6" Body weight 186.00 [lb_av] 186.00 [lb_av] MEDEN T ([facility] [place] body weight 142 [lb_av] 142 [lb_av] MEDEN T ([facility] Body mass index (BMI) [Ratio] 30.0 kg/m2 30.0 k g/m2 [facility] ([facility] Oxygen saturation in Arterial blood by Pulse oximetry 98 % 98 % [facility] ([facility] Systolic blood pressure 112 mm[Hg] 112 mm[Hg] M EDENT ([facility] Diastolic blood pressure 62 mm[Hg] 62 mm[Hg] [facility] ([facility] Body temperature 98.3 [degF] 98.3 [degF] [facility] ([facility] Diastolic blood pressure 58 mm[Hg] 58 mm[Hg] [facility] ([facility] Heart rate 66 /min 66 /min [facility] ([facility] Oxygen saturation in Arterial blood by Pulse oximetry 93 % 93 % [facility] ([facility] [place] body weight 142 [lb_av] 142 [lb_av] MEDEN T ([facility] Body mass index (BMI) [Ratio] 29.4 kg/m2 29.4 k g/m2 [facility] ([facility] Systolic blood pressure 104 mm[Hg] 104 mm[Hg] M EDENT ([facility] Body temperature 98.1 [degF] 98.1 [degF] [facility] ([facility] Respiratory rate 12 /min 12 /min [facility] ( [facility] Body height 66 [in_i] 66 [in_i] MEDEVAN ([facility] 5'6" Body weight 182.00 [lb_av] 182.00 [lb_av] MEDEN T ([facility] Patient Treatment Plan of Care Planned Activity Planned Date Details Description Data Source (s) Tamsulosin hydrochloride 0.4 MG Oral Capsule 03/17/2021 12:00:00 AM EDT eCW1 ([facility])
[2021-10-18 14:21] VITALS: BP 166/72
[2021-10-18 14:35] LABS: RSV AMPLIFICATION NEGATIVE (NEGATIVE)
--- NOTE | 2021-10-18 21:14 | ECGEPIP ---
[facility] - ED Test Date: 2021-10-18 Pat Name: EVGENY BILLINGS Department: Room: - Gender: Male Zinc Etcher: ERIN : 1955 Requested By: COURTNEY Wagoner Order Number: [id number] Reading MD: Sammy Norman Measurements Intervals [place] Rate: 87 P: 35 GA: 128 QRS: 3 QRSD: 106 T: 8 QT: 364 QTc: 438 Interpretive Statements Normal sinus rhythm Incomplete right bundle branch block Inferior infarct , age undetermined Cannot rule out Anterior infarct , age undetermined SIMILAR TO 08/07/20 Electronically Signed on 10-18-2021 21:13:44 EST by Sammy Norman
== END 2021-10-18 14:29 | disposition short-term general hospital (02) ==
LOC: M ED 12:42 → EDBD 12:42 → M ED 14:29
DX: S06.360A Traumatic hemorrhage of cerebrum, unspecified, without loss of consciousness, initial encounter (principal); I10 Essential (primary) hypertension; K44.9 Diaphragmatic hernia without obstruction or gangrene; I45.19 Other right bundle-branch block; I25.2 Old myocardial infarction; E11.9 Type 2 diabetes mellitus without complications; V49.40XA Driver injured in collision with unspecified motor vehicles in traffic accident, initial encounter; Z86.79 Personal history of other diseases of the circulatory system; Z88.5 Allergy status to narcotic agent; Z95.5 Presence of coronary angioplasty implant and graft; Z79.82 Long term (current) use of aspirin; Z79.4 Long term (current) use of insulin
CPT/HCPCS: 51702; 70450; 71260; 72125; 72128; 72131; 74177; 80047; 80048; 80076; 82077; 82550; 82553; 83690; 84439; 84443; 85025; 85610; 85730; 86850; 86900; 86901; 87631; 93005; 93041; 94760; 96374; 96375; 99285; J2597; Q9967

== ENCOUNTER 2021-12-02 12:46 | Outpatient (RCR) | payer OTHER, BC | END 2021-12-07 | LOC: M ST 12:46 | PROVIDERS: ATTEND Internal Medicine | DX: S06.2X0S Diffuse traumatic brain injury without loss of consciousness, sequela (principal) ==

== ENCOUNTER 2021-12-30 12:44 | Outpatient (RCR) | payer OTHER | END 2022-01-04 | LOC: M ST 12:44 | PROVIDERS: ATTEND Internal Medicine | DX: S06.2X0S Diffuse traumatic brain injury without loss of consciousness, sequela (principal) ==

== ENCOUNTER → 2022-01-29 | Outpatient (CLI) | payer MEDICARE ==
[2022-01-29 10:09] LABS: HEMATOCRIT 38.1 % (42.0-52.0); HEMOGLOBIN 12.4 g/dl (13.5-17.5); MEAN CORPUSCULAR HEMOGLOBIN 29.1 pg (27.0-33.0); MEAN CORPUSCULAR HGB CONC 32.5 g/dl (32.0-36.5); MEAN CORPUSCULAR VOLUME 89.4 fl (80.0-96.0); PLATELET COUNT, AUTOMATED 211 10^3/uL (150-450); RED BLOOD COUNT 4.26 10^6/uL (4.30-6.10); WHITE BLOOD COUNT 7.5 10^3/uL (4.0-10.0)
[2022-01-29 10:29] LABS: ALBUMIN 3.4 GM/DL (3.2-5.2); BILIRUBIN,TOTAL 0.3 MG/DL (0.2-1.0); CHOLESTEROL RISK RATIO 2.557 (<5); CREATININE FOR GFR 1.44 MG/DL (0.70-1.30); GLOMERULAR FILTRATION RATE 52.4 (>49); POTASSIUM SERUM 4.3 MEQ/L (3.5-5.1); TOTAL PROTEIN 6.5 GM/DL (6.4-8.2)
== END ==
LOC: M WUC 08:11
PROVIDERS: ATTEND Internal Medicine
DX: E78.5 Hyperlipidemia, unspecified (principal); E10.8 Type 1 diabetes mellitus with unspecified complications; I25.10 Atherosclerotic heart disease of native coronary artery without angina pectoris

== ENCOUNTER 2022-02-09 13:42 | Emergency (ER) | payer MEDICARE ==
[~2022-02-09] VITALS: Ht 162.6 cm; Wt 85.6 kg
[2022-02-09] MEDS ORDERED: DEXTROSE 50% 50 ML SYRINGE IV STA ×2 (13:50→15:16)
[2022-02-09] MEDS ORDERED: DEXTROSE 50% 50 ML SYRINGE As Ordered ONE (13:51)
[2022-02-09 14:47] LABS: ABG BASE EXCESS -2.7 (-2.0-2.0); ABG HCO3 23.4 MEQ/L (22.0-26.0); ABG O2 SATURATION 98.7 % (95.0-99.0); ABG PARTIAL PRESSURE CO2 45.2 mmHg (35.0-45.0); ABG PARTIAL PRESSURE O2 125.4 mmHg (75.0-100.0); ABG STANDARD HCO3 22.3 MEQ/L (22.0-26.0); ABG TOTAL CO2 24.8 MEQ/L (23.0-31.0); ABG pH (ARTERIAL) 7.332 UNITS (7.350-7.450)
[2022-02-09] MEDS ORDERED: ISOSORBIDE MON. (IMDUR) 30 MG XR TAB PO ONE (15:25)
[2022-02-09] MEDS ORDERED: CARVedilol 6.25 MG TAB PO ONE (15:25)
[2022-02-09] MEDS ORDERED: TORSEMIDE 20 MG TAB PO ONE (15:25)
[2022-02-09] MEDS: D5W/0.9% SODIUM CHLORIDE 1,000 ML IV SCH (15:26)
[2022-02-09 15:28] LABS: RSV AMPLIFICATION NEGATIVE (NEGATIVE)
[2022-02-09 15:47] LABS: BASO % 0.3 % (0.0-1.0); EOS % 0.3 % (0.0-3.0); HEMATOCRIT 41.1 % (42.0-52.0); HEMOGLOBIN 14.1 g/dl (13.5-17.5); LYMPH % 9.8 % (24.0-44.0); MEAN CORPUSCULAR HEMOGLOBIN 29.9 pg (27.0-33.0); MEAN CORPUSCULAR HGB CONC 34.3 g/dl (32.0-36.5); MEAN CORPUSCULAR VOLUME 87.1 fl (80.0-96.0); MONO # 0.5 10^3/uL (0.0-0.8); MONO % 4.7 % (2.0-8.0); NEUTROPHILS # 8.4 10^3/uL (1.5-8.5); NEUTROPHILS % 84.1 % (36.0-66.0); PLATELET COUNT, AUTOMATED 190 10^3/uL (150-450); RED BLOOD COUNT 4.72 10^6/uL (4.30-6.10)
[2022-02-09] MEDS ORDERED: ASPI81TA26 PO (16:00)
[2022-02-09] MEDS ORDERED: CARV25TA PO (16:00)
[2022-02-09] MEDS ORDERED: DORZ2SOL20 OU (16:00)
[2022-02-09 16:08] LABS: BLOOD UREA NITROGEN 31 MG/DL (7-18); CALCIUM LEVEL 9.2 MG/DL (8.8-10.2); CARBON DIOXIDE LEVEL 27 MEQ/L (21-32); CHLORIDE LEVEL 112 MEQ/L (98-107); CREATININE FOR GFR 1.21 MG/DL (0.70-1.30); GLOMERULAR FILTRATION RATE > 60.0 (>49); GLUCOSE, FASTING 166 MG/DL (70-100); POTASSIUM SERUM 3.7 MEQ/L (3.5-5.1); SODIUM LEVEL 142 MEQ/L (136-145)
[2022-02-09 16:13] LABS: CK-MB VALUE MASS 6.9 NG/ML (<3.6); MB/CK RELATIVE INDEX 3.08 (< OR =4)
[2022-02-09] MEDS ORDERED: FLOM0.4C39 PO (16:14)
[2022-02-09] MEDS ORDERED: FINA5TAB2 PO (16:14)
[2022-02-09] MEDS ORDERED: AMLO1TAB24 PO (16:14)
[2022-02-09] MEDS ORDERED: IRBE150T7 PO (16:14)
[2022-02-09] MEDS ORDERED: MED REC COMMENT (16:15)
[2022-02-09] MEDS ORDERED: HOME MED LIST COMPLETE! XX SCH (16:20)
[2022-02-09 22:10] LABS: AMPHETAMINES LEVEL URINE NEGATIVE (NEGATIVE); BARBITURATES URINE NEGATIVE (NEGATIVE); BENZODIAZEPINES URINE NEGATIVE (NEGATIVE); CANNABINOIDS URINE NEGATIVE (NEGATIVE); COCAINE METABOLITE URINE NEGATIVE (NEGATIVE); METHADONE URINE NEGATIVE (NEGATIVE); OPIATES URINE NEGATIVE (NEGATIVE); PHENCYCLIDINE URINE NEGATIVE (NEGATIVE)
[2022-02-09] MEDS ORDERED: TORSEMIDE 10 MG TABLET PO ONE (23:20)
[2022-02-09] MEDS ORDERED: CARVedilol 12.5 MG TAB PO ONE (23:20)
[2022-02-09] MEDS ORDERED: amLODIPine 5 MG TAB PO ONE (23:20)
[2022-02-10] MEDS ORDERED: IRBESARTAN 150MG TAB PO ONE (00:05)
[2022-02-10 01:08] VITALS: BP 145/67
[2022-02-10] MEDS: D5W/0.9% SODIUM CHLORIDE 1,000 ML IV SCH (03:20)
[2022-02-10] MEDS ORDERED: HumuLIN R (REGULAR) INSULIN (NovoLIN R) **100U/ML** PER UNIT IV ONE (06:15)
[2022-02-10] MEDS ORDERED: ONDANSETRON 4MG/2ML VIAL IV ONE (06:30)
[2022-02-10] MEDS ORDERED: HumaLOG INSULIN (NovoLOG) PER UNIT SC SCH (07:30)
[2022-02-10 08:52] VITALS: BP 118/57
== END 2022-02-10 08:55 | disposition short-term general hospital (02) ==
LOC: EDBD 13:42 → M ED 13:42
DX: G06.0 Intracranial abscess and granuloma (principal); T38.3X5A Adverse effect of insulin and oral hypoglycemic [antidiabetic] drugs, initial encounter; E11.9 Type 2 diabetes mellitus without complications; I10 Essential (primary) hypertension; F32.A Depression, unspecified; I51.9 Heart disease, unspecified; Z88.5 Allergy status to narcotic agent; Z79.4 Long term (current) use of insulin; Z79.899 Other long term (current) drug therapy
CPT/HCPCS: 36600; 70450; 70544; 70551; 71045; 80048; 80307; 81001; 82550; 82553; 82803; 84484; 85025; 87631; 93005; 93041; 96365; 96366; 96375; 99285; J1815; J2405